=== PATIENT | male | born 1955 | race Caucasian/White ===

== ENCOUNTER 2020-12-05 15:42 | Emergency (ER) | payer MEDICARE, SELFPAY ==
--- NOTE | 2020-12-05 16:18 | PC.NURSE ---
patient not in waiting room when called to triage
--- NOTE | 2020-12-05 17:16 | PC.NURSE ---
1st call to ed dept no response in wr at [id number]
== END 2020-12-05 19:23 | disposition left against medical advice (07) ==
PROVIDERS: Emergency Provider Emergency Medicine
DX: Z04.1 Encounter for examination and observation following transport accident (principal)
CPT/HCPCS: 99281

== ENCOUNTER 2020-12-05 22:07 | Emergency (ER) | payer MEDICARE, SELFPAY | END 2020-12-06 00:23 | disposition left against medical advice (07) | PROVIDERS: Emergency Provider Emergency Medicine | DX: Z04.1 Encounter for examination and observation following transport accident (principal) ==

== ENCOUNTER 2021-03-13 10:46 | Emergency (ER) | payer MEDICARE, SELFPAY | END 2021-03-13 12:53 | disposition left against medical advice (07) | LOC: HO.ED 12:28 | PROVIDERS: Emergency Provider Emergency Medicine | DX: R06.02 Shortness of breath (principal) ==

== ENCOUNTER 2021-04-16 07:55 | Outpatient (REF) | payer OTHER, SELFPAY | END 2021-04-16 07:56 | disposition home or self-care (01) | LOC: HO.LAB 07:55 | PROVIDERS: Visit Provider Internal Medicine | DX: Z20.822 Contact with and (suspected) exposure to COVID-19 (principal) | CPT/HCPCS: C9803; U0003; U0005 ==

== ENCOUNTER 2021-10-03 08:59 | Emergency (ER) | payer OTHER, SELFPAY ==
--- NOTE | ~2021-10-03 | CT_ITS ---
EXAMINATION: CT ABDOMEN AND PELVIS WITHOUT CONTRAST CLINICAL INFORMATION: Left groin pain. Rule out incarcerated inguinal hernia. COMPARISON: CT abdomen/pelvis dated from 08/15/2018. TECHNIQUE: Multidetector volumetric imaging was performed from the superior aspect of the liver through the pubic symphysis. Sagittal and coronal reformatted images were obtained on the technologist's workstation. This CT examination was performed using dose optimization techniques as appropriate, variously including the following: *Automated exposure control *Adjustment of mA and/or kV according to patient size (this includes techniques or standardized protocols for targeted exams where dose is matched to indication/reason for exam; i.e. extremities or head) *Use of iterative reconstruction technique DLP: 363 mGy-cm FINDINGS: LUNG BASES: There is increased peripheral reticulation and subpleural lucencies when compared to the study from 2018. There is redemonstration of linear atelectasis or parenchymal scarring in the left lower lobe. No focal consolidation or pleural effusion. LIVER, GALLBLADDER, AND BILIARY TREE: The noncontrast liver is normal in size, shape and attenuation. Redemonstration of a small calcified granuloma in the right lobe of the liver. There are no definite new focal liver abnormalities. Cholelithiasis without abnormal wall thickening or inflammatory changes to suspect acute cholecystitis. There is no biliary ductal dilatation. PANCREAS: No focal abnormalities. The main pancreatic duct is nondilated. There is no peripancreatic free fluid or fat stranding. SPLEEN: Unremarkable. ADRENAL GLANDS: Unremarkable. KIDNEYS AND URETERS: There is a 5 mm nonobstructive calculus in the upper pole of the right kidney at 7 cm from the posterior axillary line (image 54 of series 5). There is a 3 mm nonobstructive renal calculus in the upper pole of left kidney at 7.2 cm from the posterior axillary line (image 55 of series 5). There is a 2.5 cm cyst in the upper to mid pole of left kidney. No hydronephrosis. No perinephric fat stranding. BLADDER: Partially under distended which limits assessment of wall thickening. No significant perivesical fat stranding. GASTROINTESTINAL TRACT: The stomach and the small bowel are nondilated. There are a few prominent and fluid-filled loops of small bowel in the upper abdomen (coronal image 36 of series 5) which could potentially represent gastroenteritis in the appropriate clinical setting. There is no evidence of bowel obstruction. There is a normal appendix. The distal colon is underdistended limiting assessment of wall thickening and in the sigmoid colon very mild acute diverticulitis cannot be excluded. There is no significant pericolic fat stranding. ABDOMINAL WALL: Midline surgical scar. There is a left inguinal hernia containing simple attenuating fluid and measuring up to 3.3 cm. There is very minimal surrounding fat stranding. There is no bowel within the hernia. LYMPH NODES: Assessment is limited in the absence of intravenous contrast. Accounting for these limitations, no definite lymphadenopathy by size criteria is identified. VASCULAR: Atherosclerotic disease. No aneurysm of the abdominal aorta. PELVIC VISCERA: Prostatomegaly. OSSEOUS STRUCTURES: Redemonstration of an interdisc spacer at L5-S1. Prominent Schmorl's nodule at L3. Multilevel thoracal lumbar spondylosis. No acute or aggressive osseous findings. CT/CT abdomen pelvis wo con IMPRESSION: Chest: Increase peripheral reticulation and subpleural lucencies since 2018 raising the possibility of underlying chronic interstitial disease with possible superimposed infection or inflammation. Recommend further evaluation with a nonemergent high-resolution chest CT. Abdomen/pelvis: 1. Fluid containing left inguinal hernia with very mild surrounding fat stranding. Correlate clinically for infection. This hernia does not contain loops of bowel. There is no evidence of bowel obstruction. 2. Possible very mild sigmoid diverticulitis. 3. Indeterminate fluid distended loops of small bowel which could be related with gastroenteritis in the appropriate clinical setting. 4. Cholelithiasis but no evidence of acute cholecystitis. 5. Nonobstructive bilateral renal calculi.
[2021-10-03 09:29] VITALS: BP 131/76; PULSE 62; RESP 16; TEMP 36.9; O2SAT 100; BMI 23.4
--- NOTE | 2021-10-03 10:39 | ED.GENADULT ---
HPI - General Adult General Chief complaint: General Medical Stated complaint: hernia Time Seen by Provider: 10/03/21 10:36 Source: patient Mode of arrival: ambulatory Limitations: no limitations History of Present Illness HPI narrative: 66-year-old male came in for evaluation of possible a hernia incarceration. Patient is known to have left inguinal hernia, hernia for 1 week is been getting worse and painful, normal bowel movement this morning, patient been having loose stool early recently, no loss of weight, no fever, no chills, no nausea, no vomiting. Related Data Allergies Allergy/AdvReac Type Severity Reaction Status Date / Time No Known Allergies Allergy Unverified 08/16/20 18:52 [No Known Allergies*] Review of Systems Review of Systems: All other systems are reviewed and are negative Constitutional: Reports as per HPI and Reports no additional constitutional complaints Eyes: Reports as per HPI and Reports no additional eye complaints Reports system reviewed and no additional complaints, except as documented Cardiovascular: Reports as per HPI and Reports no additional cardiovascular complaints Respiratory: Reports as per HPI and Reports no additional respiratory complaints Gastrointestinal: Reports as per HPI and Reports no additional gastrointestinal complaints Genitourinary: Reports no additional female genitourinary complaints Musculoskeletal: Reports no additional musculoskeletal complaints Skin/Breast: Reports system reviewed and no additional complaints, except as docu Psychiatric: Reports no additional psychiatric complaints Endocrine: Reports no additional endocrine complaints Hematologic/Lymphatic: Reports no additional hematologic/lymphatic complaints Allergic/Immunologic: Reports no additional allergic/immunologic complaints Reports system reviewed and no additional complaints, except as documented and Reports Abnormal speech present [facility] Past Medical History Medical History No known health problems Social History Social History Advance Directives: No Advance Directives Information Provided: Yes Physical Exam Vital Signs: Vital Signs: Last Vital Signs Temp 98.4 F 10/03/21 09:29 Pulse 62 10/03/21 09:29 Resp 16 10/03/21 09:29 BP 131/76 10/03/21 09:29 Pulse Ox 100 10/03/21 09:29 Body Mass Index 23.4 Vital signs have been reviewed as appeared to be correct. Blood pressure normal. Heart rate normal. Respiration rate normal. Temperature normal. Oxygen saturation normal. Appearance: Alert. Oriented X3. No acute distress. Head: Normal external exam. Normocephalic. Atraumatic. No [place] signs noted. No raccoon eyes noted Eyes: PERRLA. EOMI. Conjunctiva and sclera normal. Eyelids normal. ENT: TM's Normal. Pharynx normal. Uvula midline. Moist mucous membranes. No trismus noted. No drooling noted. No muffled voice noted. Neck: Normal inspection. Neck supple. FROM. No adenopathy. Thyroid Normal. No meningeal signs. No neck mass noted. CVS: Normal heart rate and rhythm. Heart sound normal. No murmurs noted. Pulses normal throughout. Respiratory: No respiratory distress. Painless inspiration. Breath sounds normal. No wheezes/rales/rhonchi noted. Chest nontender. No accessory muscle usage noted or decreased air movement noted. Abdomen: Soft, mild tenderness over left groin hernia, skin over it no redness, or hotness, or tenderness. sounds normal in all 4 quadrants. No distention noted. No organomegaly noted. No visible injury noted. Back: No CVA tenderness. Full range of motion noted. Skin: Skin warm and dry. Normal skin color. Normal skin turgor. No rashes/lesions/lacerations noted. Extremities: No lower extremity edema. Extremities exhibit normal range of motion. Extremities nontender. Neuro: Oriented X 3. Cranial nerve exam: II-XII are grossly intact No motor deficit. No sensory deficit. Reflexes normal. Course Course Course Narrative: Assessment and plan. 66-year-old male with left to inguinal hernia, patient has a normal white count, CT is questioning mild inflammatory change around the hernia, case discussed with Dr. Issa who is supposed to come down and evaluate the patient, patient does not want to wait for the surgeon he would like to leave against medical advise understanding the risk of strangulation of the hernia and causing life-threatening complication. Medical Decision Making Medical Records Medical records reviewed: Yes I reviewed the patient's medical records. Lab Data Lab results reviewed: Yes I reviewed the patient's lab results. Result diagrams: 10/03/21 10:56 10/03/21 10:56 Labs: Lab Results 10/03/21 10/03/21 10/03/21 Range/Units 10:56 10:56 10:56 WBC 7.6 (4.8-10.8) X10*3/uL RBC 5.29 (4.60-5.80) X10*6/uL Hgb 16.0 (14.0-18.0) g/dl Hct 47.8 (42.0-52.0) % MCV 90.4 (80.0-98.0) fL MCH 30.2 (27.0-33.0) pg MCHC 33.5 (31.0-36.0) g/dl RDW 13.7 (11.0-16.0) % Plt Count 224 (160-400) X10*3/uL MPV 10.9 (9.4-12.4) fL Immature Gran % (Auto) 0.3 (0.0-0.4) % Neut % (Auto) 66.3 (45-73) % Lymph % (Auto) 26.4 (20-40) % [place] % (Auto) 5.0 (2-11) % Eos % (Auto) 1.7 (0-4) % Baso % (Auto) 0.3 (0-2) % Lymph # (Auto) 2.0 (1.2-4.9) X10*3/uL [place] # (Auto) 0.4 (0.1-1.2) X10*3/uL Eos # (Auto) 0.1 (0.0-0.4) X10*3/uL Baso # (Auto) 0.0 (0.0-0.2) X10*3/uL Abs Immat Gran (auto) 0.02 (0.00-0.03) X10*3/uL Absolute Neuts (auto) 5.07 (2.0-8.3) x10*3/uL Absolute Nucleated RBC 0.000 (0.0-0.012) X10*3/uL Nucleated RBC % (auto) 0.0 (0.0-0.2) /100WBC Sodium 143 (135-145) mmol/L Potassium 4.6 (3.3-5.1) mmol/L Chloride 106 (96-108) mmol/L Carbon Dioxide 27 (22-29) mmol/L Anion Gap 15 (12-20) BUN 15 (9-16) mg/dL Creatinine 1.07 (0.5-1.4) mg/dL Estim Creat Clear Calc 57.4 Estimated GFR > 60 Random Glucose 98 (60-115) mg/dL Calcium 9.9 (8.4-10.2) mg/dL Total Bilirubin 0.6 (0.0-1.0) mg/dL Direct Bilirubin 0.2 (0.0-0.5) mg/dL AST 30 (5-37) U/L ALT 35 (0-40) U/L Alkaline Phosphatase 87 (39-117) U/L Total Protein 8.2 H (6.5-8.0) g/dL Albumin 5.0 (3.5-5.0) g/dL Lipase 160 H (8-78) U/L Urine Color Urine Appearance Urine pH (5.0-8.0) Ur Specific [place] (1.005-1.025) Urine Protein (NEG-TRACE) MG/DL Urine Glucose (UA) (NEG) MG/DL Urine Ketones (NEG) MG/DL Urine Blood (NEG) Urine Nitrite (NEG) Ur Leukocyte Esterase (NEG) Urine RBC (0) /HPF Urine WBC (0-4) /HPF Ur Squamous Epith Cells /LPF Urine Bacteria /LPF COVID-19 (KEISHA) Negative (Negative) COVID-19 Clin Com See Note 10/03/21 Range/Units 11:10 WBC (4.8-10.8) X10*3/uL RBC (4.60-5.80) X10*6/uL Hgb (14.0-18.0) g/dl Hct (42.0-52.0) % MCV (80.0-98.0) fL MCH (27.0-33.0) pg MCHC (31.0-36.0) g/dl RDW (11.0-16.0) % Plt Count (160-400) X10*3/uL MPV (9.4-12.4) fL Immature Gran % (Auto) (0.0-0.4) % Neut % (Auto) (45-73) % Lymph % (Auto) (20-40) % [place] % (Auto) (2-11) % Eos % (Auto) (0-4) % Baso % (Auto) (0-2) % Lymph # (Auto) (1.2-4.9) X10*3/uL [place] # (Auto) (0.1-1.2) X10*3/uL Eos # (Auto) (0.0-0.4) X10*3/uL Baso # (Auto) (0.0-0.2) X10*3/uL Abs Immat Gran (auto) (0.00-0.03) X10*3/uL Absolute Neuts (auto) (2.0-8.3) x10*3/uL Absolute Nucleated RBC (0.0-0.012) X10*3/uL Nucleated RBC % (auto) (0.0-0.2) /100WBC Sodium (135-145) mmol/L Potassium (3.3-5.1) mmol/L Chloride (96-108) mmol/L Carbon Dioxide (22-29) mmol/L Anion Gap (12-20) BUN (9-16) mg/dL Creatinine (0.5-1.4) mg/dL Estim Creat Clear Calc Estimated GFR Random Glucose (60-115) mg/dL Calcium (8.4-10.2) mg/dL Total Bilirubin (0.0-1.0) mg/dL Direct Bilirubin (0.0-0.5) mg/dL AST (5-37) U/L ALT (0-40) U/L Alkaline Phosphatase (39-117) U/L Total Protein (6.5-8.0) g/dL Albumin (3.5-5.0) g/dL Lipase (8-78) U/L Urine Color YELLOW Urine Appearance CLEAR Urine pH 6.0 (5.0-8.0) Ur Specific [place] 1.020 (1.005-1.025) Urine Protein NEG (NEG-TRACE) MG/DL Urine Glucose (UA) NEG (NEG) MG/DL Urine Ketones NEG (NEG) MG/DL Urine Blood TRACE (NEG) Urine Nitrite NEG (NEG) Ur Leukocyte Esterase NEG (NEG) Urine RBC 1-4 (0) /HPF Urine WBC 0 (0-4) /HPF Ur Squamous Epith Cells NONE /LPF Urine Bacteria NONE /LPF COVID-19 (KEISHA) (Negative) COVID-19 Clin Com Imaging Data CT scan - abdomen: Radiologist's impression: 1.? Fluid containing left inguinal hernia with very mild surrounding fat stranding. Correlate clinically for infection. This hernia does not contain loops of bowel. There is no evidence of bowel obstruction. 2.? Possible very mild sigmoid diverticulitis. 3.? Indeterminate fluid distended loops of small bowel which could be related with gastroenteritis in the appropriate clinical setting. 4.? Cholelithiasis but no evidence of acute cholecystitis. 5.? Nonobstructive bilateral renal calculi. Discharge Plan Discharge Clinical Impression: Inguinal hernia Qualifiers: Obstruction and gangrene presence: without obstruction or gangrene Laterality: unilateral Recurrence: not specified as recurrent Qualified Code(s): K40.90 - Unilateral inguinal hernia, without obstruction or gangrene, not specified as recurrent Patient Disposition: Left Against Medical Advice Instructions: Inguinal Hernia (ED) Referrals: Emil Issa MD [Physician] - 2 days
[2021-10-03 11:14] LABS: MANUAL DIFF FLAG NO
[2021-10-03] MEDS: 0.9 % Sodium Chloride 1,000 ML 999 ML IVCONT (11:14)
[2021-10-03 11:18] LABS: Basophils Percent Auto 0.3 % (0-2); Eosinophils Absolute Auto 0.1 X10*3/uL (0.0-0.4); Eosinophils Percent Auto 1.7 % (0-4); Hematocrit 47.8 % (42.0-52.0); Imm Gran Abs Auto 0.02 X10*3/uL (0.00-0.03); Imm Gran Pct Auto 0.3 % (0.0-0.4); Lymphocytes Percent Auto 26.4 % (20-40); Mean Corpuscular HGB Conc 33.5 g/dl (31.0-36.0); Mean Corpuscular Hemoglobin 30.2 pg (27.0-33.0); Mean Corpuscular Volume 90.4 fL (80.0-98.0); Mean Platelet Volume 10.9 fL (9.4-12.4); Monocytes Absolute Auto 0.4 X10*3/uL (0.1-1.2); Neutrophils Absolute Auto 5.07 x10*3/uL (2.0-8.3); Neutrophils Percent Auto 66.3 % (45-73); Platelet Count 224 X10*3/uL (160-400); Red Blood Count 5.29 X10*6/uL (4.60-5.80); Red Cell Distribution Width 13.7 % (11.0-16.0); White Blood Count 7.6 X10*3/uL (4.8-10.8)
[2021-10-03 11:34] LABS: COVID-19 Test Negative (Negative)
[2021-10-03 11:35] LABS: Alanine Aminotransferase 35 U/L (0-40); Alkaline Phosphatase 87 U/L (39-117); Anion Gap 15 (12-20); Aspartate Amino Transferase 30 U/L (5-37); Bilirubin Direct 0.2 mg/dL (0.0-0.5); Bilirubin Total 0.6 mg/dL (0.0-1.0); Blood Urea Nitrogen 15 mg/dL (9-16); Calcium 9.9 mg/dL (8.4-10.2); Carbon Dioxide 27 mmol/L (22-29); Chloride 106 mmol/L (96-108); Creatinine Clr Calc Pharmacy 57.4; Estimated Glomerular Filt Rate > 60; Glucose Random 98 mg/dL (60-115); Lipase 160 U/L (8-78); Potassium 4.6 mmol/L (3.3-5.1); Sodium 143 mmol/L (135-145); Total Protein 8.2 g/dL (6.5-8.0)
[2021-10-03 11:37] LABS: Appearance Urine CLEAR; Color Urine YELLOW; Glucose Urine UA NEG (NEG); Leukocyte Esterase Urine NEG (NEG); Nitrite Urine NEG (NEG); UACC Culture Trigger NO; Urine Blood TRACE (NEG); Urine Ketones NEG (NEG); Urine Protein NEG (NEG-TRACE)
[2021-10-03 12:18] LABS: WBC Urine 0 /HPF (0-4)
--- NOTE | 2021-10-03 14:41 | PC.NURSE ---
pt not found at bedside when this rn attempted to give pt his d/c papers
== END 2021-10-03 14:44 | disposition left against medical advice (07) ==
PROVIDERS: Emergency Provider Emergency Medicine
DX: K40.90 Unilateral inguinal hernia, without obstruction or gangrene, not specified as recurrent (principal); Z20.822 Contact with and (suspected) exposure to COVID-19
CPT/HCPCS: 36415; 74176; 80048; 80076; 81001; 83690; 85025; 87635; 96360; 99284

== ENCOUNTER → 2021-10-23 12:57 | Outpatient (BNVA) | payer OTHER, SELFPAY | PROVIDERS: Visit Provider Surgery | DX: K40.90 Unilateral inguinal hernia, without obstruction or gangrene, not specified as recurrent (principal) | CPT/HCPCS: 99202 ==

== ENCOUNTER → 2021-11-05 10:14 | Day surgery (SDC) | payer OTHER, SELFPAY ==
--- NOTE | 2021-11-04 12:08 | HO.ANESPROP2 ---
HPI - Anesthesia Eval Consult details Narrative: 66yo M for Left Hernia Repair Inguinal with Mesh PMFSH Active Problems Active Problems: All Active Problems (Updated 10/23/21 @ 13:40 by Emil Issa MD) Left inguinal hernia (Acute) Past Medical History Medical History (Updated 10/23/21 @ 13:40 by Emil Issa MD) Left inguinal hernia No known health problems Surgical History Surgical History (Updated 10/23/21 @ 13:22 by Carolina Peralta [place]) History of shoulder surgery History of spinal surgery Meds Allergies Allergy/AdvReac Type Severity Reaction Status Date / Time No Known Allergies Allergy Verified 10/23/21 13:21 [No Known Allergies*] Home Medications Medication Instructions Recorded Confirmed Last Taken Type No Known Home Meds 10/23/21 10/23/21 Unknown History Exam Exam Date and Time: November 04, 2021 1208 Pertinent Lab Results Pertinent Lab Results: Laboratory Tests 10/03/21 10/03/21 10:56 10:56 WBC 7.6 Hgb 16.0 Hct 47.8 Plt Count 224 Sodium 143 Potassium 4.6 Chloride 106 Carbon Dioxide 27 BUN 15 Creatinine 1.07 Assessment and Plan Assessment Anesthesia Assessment: Chart Reviewed
[2021-11-05 10:30] VITALS: BMI 23.3
[2021-11-05 10:42] VITALS: BP 135/91; PULSE 58; RESP 16; TEMP 36.1; O2SAT 100
[2021-11-05] MEDS: Lactated Ringers 1,000 ML 100 ML IVCONT (10:50)
== END ==
PROVIDERS: Visit Provider Surgery
DX: K40.90 Unilateral inguinal hernia, without obstruction or gangrene, not specified as recurrent (principal); Z53.29 Procedure and treatment not carried out because of patient's decision for other reasons
CPT/HCPCS: J0690

== ENCOUNTER 2021-11-11 11:41 | Outpatient (REF) | payer OTHER, SELFPAY ==
--- NOTE | ~2021-11-11 | XR_ITS ---
EXAMINATION: XR HAND, RIGHT CLINICAL INFORMATION: Pain COMPARISON: None TECHNIQUE: PA, lateral, and oblique views of the right hand. FINDINGS: Normal bone mineralization. Postsurgical changes with metallic anchor projected over the distal scaphoid. Small metallic density projected over the fifth metacarpal head, could reflect sequela of surgery or represent a metallic foreign body. Moderate first CMC arthritis. There are arthritic changes otherwise present, including severe third CMC arthritis. Radiocarpal arthritis, arthritic changes in some of the interphalangeal joints. Limited evaluation of the scaphoid, distal carpal bones, especially the capitate, with overlapping osseous structures. XR/XR hand RT min 3V IMPRESSION: -Postsurgical changes with metallic anchor in the distal scaphoid. -Metallic density projected over the fifth metacarpal head, from postsurgical changes versus metallic foreign body. -Arthritis present. This includes moderate first CMC arthritis, severe third CMC arthritis, as described above. -Limited evaluation the carpal bones. Dedicated wrist radiograph can be obtained for further evaluation as clinically warranted.
== END 2021-11-11 11:42 | disposition home or self-care (01) ==
LOC: HO.XRAY 11:41
PROVIDERS: PCP Internal Medicine; Visit Provider Nurse Practitioner
DX: M79.641 Pain in right hand (principal)
CPT/HCPCS: 73130

== ENCOUNTER 2021-12-04 | Outpatient (REF) | payer OTHER, SELFPAY ==
--- NOTE | ~2021-12-04 | XR_ITS ---
EXAMINATION: RIGHT WRIST X-RAY CLINICAL INFORMATION: Pain. COMPARISON: Previous x-ray October 2021. TECHNIQUE: 4 views of the right wrist. FINDINGS: There is a surgical anchor that projects over the scaphoid bone. There is question of old trauma to the scaphoid bone. There is question of abnormal carpal alignment with dorsal tilt of the lunate and proximal migration of the capitate/distal carpal row. Mild arthritis at the 1st SKILLED NURSING joint, trapezoid trapezium scaphoid joints and radiocarpal joint. There may also be arthritis at the 2nd and 3rd MCP joints and cystic changes of the metacarpal heads. There is a radiopaque density that projects over the base of the 4th metacarpal bone and 5th metacarpal head suggestive soft tissue foreign body. These appear unchanged. Soft tissues are otherwise unremarkable. XR/XR wrist RT w scaphoid IMPRESSION: Question old trauma to the scaphoid bone. Arthritis and collapse of the carpal rows. No change from previous exam October 2021.
== END 2021-12-04 00:01 | disposition home or self-care (01) ==
LOC: HO.XRAY
PROVIDERS: Visit Provider Orthopaedic Surgery
DX: M25.531 Pain in right wrist (principal)
CPT/HCPCS: 73110

== ENCOUNTER → 2021-12-04 11:04 | Outpatient (BNVA) | payer OTHER, SELFPAY | PROVIDERS: Visit Provider Orthopaedic Surgery | DX: M48.1 Ankylosing hyperostosis [Forestier] (principal) | CPT/HCPCS: 73110; 99202; J1020 ==

== ENCOUNTER 2021-12-19 08:11 | Emergency (ER) | payer OTHER, SELFPAY ==
--- NOTE | ~2021-12-19 | XR_ITS ---
Indication: Fall, pain EXAMINATION: Right shoulder, lumbar sacral spine 3 views the right shoulder compared to previous dated 04/23/2017. Status post surgical change. There is no evidence for an acute fracture or dislocation. 3 views of the lumbar sacral spine demonstrate surgical change at L5-S1. There is no listhesis or compression injury. Mild scoliosis convex right. Mild to moderate degenerative changes. No acute finding. No fracture line is seen. XR/XR shoulder RT min 2V IMPRESSION: No acute finding in the lumbar sacral spine or right shoulder.
--- NOTE | ~2021-12-19 | XR_ITS ---
Indication: Fall, pain EXAMINATION: Right shoulder, lumbar sacral spine 3 views the right shoulder compared to previous dated 04/23/2017. Status post surgical change. There is no evidence for an acute fracture or dislocation. 3 views of the lumbar sacral spine demonstrate surgical change at L5-S1. There is no listhesis or compression injury. Mild scoliosis convex right. Mild to moderate degenerative changes. No acute finding. No fracture line is seen. XR/XR lumbar spine 2-3V IMPRESSION: No acute finding in the lumbar sacral spine or right shoulder.
[2021-12-19 08:41] VITALS: BP 155/95; PULSE 75; RESP 19; TEMP 36.6; O2SAT 99; BMI 23.3
--- NOTE | 2021-12-19 09:14 | ED_ITS ---
HPI - General Adult General Chief complaint: Fall Stated complaint: Fall/ hip and leg pain Time Seen by Provider: 12/19/21 09:14 Source: patient Limitations: no limitations History of Present Illness HPI narrative: Patient presents to the ER complaining of right shoulder and lower back pain and leg pain. After recent fall approximately 1 week prior and assess for a slipped on the stairs. Pain in the right shoulder increases with range of motion. Pain lower back increases with ambulation and walking. Patient states at 1st he felt fine but pain is increased over the past week. Patient having difficulty sleeping at night secondary to pain. Pain is 7/10. Pain is aching in nature. Patient has longstanding history of hypercholesterolemia depression and anxiety. Related Data Previous Rx's Medication Instructions Recorded tramadol 50 mg tablet 50 mg PO BID PRN #14 tab 12/19/21 Allergies Allergy/AdvReac Type Severity Reaction Status Date / Time No Known Allergies Allergy Verified 12/04/21 11:33 [No Known Allergies*] Review of Systems Constitutional: Constitutional: Denies body ache(s), Denies chills, Denies fever(s) and Denies headache(s) Eyes: Eyes: Denies change in vision ENT: Denies headache(s) Cardiovascular: Cardiovascular: Denies chest pain, Denies Epigastric Pain, De nies syncope and Denies dyspnea Respiratory: Respiratory: Denies cough and Denies dyspnea Gastrointestinal: Gastrointestinal: Denies abdominal pain, Denies diarrhea and Denies nausea Musculoskeletal: Musculoskeletal: Reports back pain Comments: Right-sided shoulder pain right leg pain Neurologic: Denies syncope, Denies headache(s) and Denies convulsions Psychiatric: Psychiatric: Reports anxiety Hematologic/Lymphatic: Hematologic/Lymphatic: Reports no additional hematologic/lymphatic complaints Allergic/Immunologic: Allergic/Immunologic: Reports no additional allergic/immunologic complaints [facility] Past Medical History Attestation statement: The following information was validated with the patient. Medical History Anxiety Depression Left inguinal hernia No known health problems Surgical History History of shoulder surgery History of spinal surgery Social History Social History Patient Tobacco Use Status: Current everyday Tobacco user Tobacco use type: Cigarette Advance Directives: No Advance Directives Information Provided: No Physical Exam Vital Signs: Vital Signs: Last Vital Signs Temp 98 F 12/19/21 08:41 Pulse 75 12/19/21 08:41 Resp 19 12/19/21 08:41 BP 155/95 H 12/19/21 08:41 Pulse Ox 99 12/19/21 08:41 BMI result Body Mass Index 23.3 vital signs have been reviewed as normal and appeared to be correct. Blood pressure normal. Heart rate normal. Respiration rate normal. Temperature normal. Oxygen saturation normal. Appearance: Alert. Oriented X3. No acute distress. Head: Normal external exam. Normocephalic. Atraumatic. No [place] signs noted. No raccoon eyes noted Eyes: PERRLA. EOMI. Conjunctiva and sclera normal. Eyelids normal. ENT: Pharynx normal. Uvula midline. Moist mucous membranes. Neck: Soft full range of motion, no JVD CVS: Heart regular rate and rhythm no murmurs and rubs Respiratory: Breath sounds are clear to auscultation bilaterally. No accessory muscle use noted. Abdomen: Soft nontender no rebound or guarding positive bowel sounds Back: positive paraspinal muscle tenderness of the lumbar spine right greater than left no midline tenderness Skin: Skin warm and dry. Normal skin color. Normal skin turgor. No rashes/lesions/lacerations noted. Extremities: pelvis is stable right lateral hip is nontender full range of motion of lower extremities. Positive right shoulder tenderness lateral aspect the anterior aspect no obvious deformity student accounts coordinator is equal bilaterally. Neuro: Oriented X 3. No motor deficit. No sensory deficit. Reflexes normal. No focal deficit patient is ambulatory without ataxia Course Course Course Narrative: Right shoulder contusion Lumbar contusion Right shoulder fracture AC separation Lumbar compression fracture x-rays pending of LS spine and right shoulder x-rays are negative of the lumbar spine and right shoulder patient's injury occurred on the 12th of this month mass pat reviewed no prescriptions found Medical Decision Making Imaging Data lumbar spine: Radiologist's impression: [address] [address] XRay Report Signed Patient: Celestino Sweeney MR#: [id number] : 1955 Acct:[id number] Age/Sex: 66 / M ADM Date: 12/19/21 Loc: HO.ED Attending Dr: Ordering Physician: Earl Bustillo MD Date of Service: 12/19/21 Procedure(s): XR lumbar spine 2-3V Accession Number(s): [id number] cc: Earl Bustillo MD~ Indication: Fall, pain EXAMINATION: Right shoulder, lumbar sacral spine 3 views the right shoulder compared to previous dated 04/23/2017. Status post surgical change. There is no evidence for an acute fracture or dislocation. 3 views of the lumbar sacral spine demonstrate surgical change at L5-S1. There is no listhesis or compression injury. Mild scoliosis convex right. Mild to moderate degenerative changes. No acute finding. No fracture line is seen. XR/XR lumbar spine 2-3V IMPRESSION: No acute finding in the lumbar sacral spine or right shoulder. Dictated By: SARAI MOORE MD Signed By: <Electronically signed by SARAI MOORE MD in OV> 12/19/21917 DD/ 7 TD/TT:? Warp Splitter: GT Discharge Plan Discharge Clinical Impression: Right shoulder strain Qualifiers: Encounter type: initial encounter Qualified Code(s): S46.911A - Strain of unspecified muscle, fascia and tendon at shoulder and upper arm level, right arm, initial encounter Contusion Qualifiers: Encounter type: initial encounter Contusion area: lower back Qualified Code(s): S30.0XXA - Contusion of lower back and pelvis, initial encounter Patient Disposition: Home, Self-Care Instructions: Contusion in Adults (ED) Additional Instructions: x-rays are negative rest ice elevation medication as directed Prescriptions: New tramadol 50 mg tablet 50 mg PO BID PRN (Reason: severe pain (scale score 7-10)) Qty: 14 RF: 0
== END 2021-12-19 09:38 | disposition home or self-care (01) ==
PROVIDERS: Emergency Provider Emergency Medicine Emergency Medical Services
DX: S46.911A Strain of unspecified muscle, fascia and tendon at shoulder and upper arm level, right arm, initial encounter (principal); S30.0XXA Contusion of lower back and pelvis, initial encounter; W10.8XXA Fall (on) (from) other stairs and steps, initial encounter; Y93.9 Activity, unspecified; Y92.039 Unspecified place in apartment as the place of occurrence of the external cause; Y99.9 Unspecified external cause status
CPT/HCPCS: 72100; 73030; 99283

== ENCOUNTER → 2021-12-30 12:59 | Outpatient (BNVA) | payer OTHER, SELFPAY | PROVIDERS: Visit Provider Orthopaedic Surgery ==

== ENCOUNTER 2022-01-09 09:53 | Outpatient (REF) | payer OTHER, SELFPAY ==
--- NOTE | ~2022-01-09 | MR_ITS ---
EXAMINATION: MR LUMBAR SPINE WITHOUT AND WITH CONTRAST CLINICAL INFORMATION: 66-year-old with complaints of low back and right leg pain. History of disc surgery in 2017. Lumbar radiculopathy. COMPARISON: 11/09/2015 MRI. TECHNIQUE: MRI of the lumbar spine was obtained using routine sequences with and without contrast. Intravenous contrast: Gadavist 6.5 mL FINDINGS: Coronal Alignment: Trace upper lumbar dextrocurvature on current study, which is nonspecific and may be positional or related to muscle spasm. Sagittal Alignment: The lumbosacral spine is anatomically aligned in the sagittal plane, stable in appearance. Lumbosacral Junction: Normal. Vertebral Bodies: Normal height. Disc Spaces and Endplates: Status post interbody fusion at L5-S1 with metallic hardware artifact since previous exam. Moderate to severe disc space height loss asymmetric to the right at L4-L5, which has developed since previous exam, with Schmorl's nodes, disc desiccation and mild spondylosis. Mild disc desiccation and mild disc space height loss asymmetric to the left at L3-L4, stable in appearance. A tiny Schmorl's node along the inferior endplate of L3 is new. Moderate to severe disc space height loss asymmetric to the left at L2-L3 has developed since previous exam, with a prominent Schmorl's node along the superior endplate of L3 and intradiscal degenerative signal changes with moderate spondylosis progressed from previous exam. Disc space height and signal are well maintained at L1-L2 with anterior marginal spondylosis, slightly progressed. Minor anterior marginal spondylosis at T12-L1 is stable. Spinal Canal: No abnormal developmental findings. Bone Marrow: Type I degenerative marrow signal changes are seen along the endplates at L4-L5, which has developed since the previous exam consistent with the development of extensive degenerative disc disease at this level. There has been development of type I degenerative endplate change at L2-L3 as well consistent with development of significant degenerative disc disease at this level. No other significant foci of bone marrow edema are seen and there is no suspicious marrow replacing process. There is bone marrow enhancement along the endplates at L4-L5 and L2-L3 consistent with type I marrow signal change at these levels. There may be some enhancement along the endplates at L5-S1, which could be secondary to reactive changes from previous surgery. No suspicion for infection. Conus Medullaris: Terminates at L1. Morphology and signal is normal. No abnormal enhancement. Intradural Nerve Roots: Within normal limits. No abnormal intradural enhancement. L5-S1: Status post ALIF procedure at this level, with metallic hardware artifact. No significant facet arthrosis, canal or neuroforaminal stenosis and no abnormal enhancement. L4-L5: Diffuse disc bulging progressed from previous study with mild flattening of the ventral dural sac, with disc bulging encroaching on the neural foramina bilaterally, right more than left. Mild right-sided facet arthropathy has developed since the previous exam. There is mild right-sided foraminal narrowing without neural impingement. No significant spinal canal stenosis. Ligamentum flavum thickening has slightly progressed at this level. L3-L4: Diffuse disc bulging is again noted, now with a very small right subarticular disc protrusion since previous exam without neural impingement. [id number] bilateral facet arthropathy is stable with no significant canal or neuroforaminal stenosis. L2-L3: Progression of disc bulging at this level since the previous exam, with a shallow broad-based left subarticular disc protrusion with mild flattening of the dural sac asymmetric to the left, progressed from previous study with minimal narrowing of the left subarticular zone on current study without neural impingement. Minor facet arthrosis bilaterally is stable. There is slight left-sided neural foraminal narrowing without neural impingement on the current study. No significant central spinal canal stenosis. L1-L2: Normal disc contour. No significant facet arthrosis, canal or neuroforaminal stenosis. T12-L1: Tiny central disc protrusion, stable in appearance. No facet arthrosis, canal or neuroforaminal stenosis. Paraspinal/Retroperitoneal: The paravertebral soft tissues are unremarkable. MR/MR lumbar spine wo/w con IMPRESSION: 1. Status post ALIF procedure at L5-S1 since the previous exam with no significant canal or neuroforaminal stenosis. Some endplate marrow enhancement is noted, which is nonspecific but is likely reactive, secondary to previous surgery. No obvious signs of infection. 2. Progression of discogenic degenerative changes at L2-L3 and L4-L5 since the previous exam with stable disc degenerative change at L3-L4 with multilevel disc bulging again noted, progressed at L4-L5 and L2-L3, now with a very small right subarticular disc protrusion at L3-L4 without neural impingement and shallow broad-based left subarticular disc protrusion at L2-L3 without neural impingement since previous study. 3. Stable multilevel bilateral facet arthropathy with no significant central spinal canal stenosis. Mild right-sided foraminal narrowing is noted at L4-L5 without neural impingement and minimal left-sided foraminal narrowing at L2-L3 without neural impingement since previous exam.
== END 2022-01-09 09:54 | disposition home or self-care (01) ==
LOC: HO.MRI 09:53
PROVIDERS: Visit Provider Internal Medicine
DX: M54.16 Radiculopathy, lumbar region (principal)
CPT/HCPCS: 72158; A9585

== ENCOUNTER 2022-01-10 06:00 | Day surgery (SDC) | payer OTHER, SELFPAY ==
--- NOTE | 2022-01-09 09:51 | P.CONAN_ITS ---
Documented by User: Koki Patton NP 01/09/22 10:04 HPI - Anesthesia Eval Consult details Narrative: 66yo M for Left Hernia Repair Inguinal with Mesh Reschedule from 10/2021 because [facility] Active Problems Active Problems: All Active Problems (Updated 12/30/21 @ 14:48 by Edu Dumont MD) History of repair of right rotator cuff (Acute) Retained orthopedic hardware (Acute) Arthritis of carpometacarpal (CMC) joint of right thumb (Acute) Left inguinal hernia (Acute) Past Medical History Medical History Anxiety Depression Left inguinal hernia No known health problems Surgical History Surgical History History of shoulder surgery History of spinal surgery Social History Social History Patient Tobacco Use Status: Current everyday Tobacco user Tobacco use type: Cigarette Are you DNR?: No Advance Directives: No Advance Directives Information Provided: Yes Advance Directives on File: No Meds Allergies Allergy/AdvReac Type Severity Reaction Status Date / Time No Known Allergies Allergy Verified 12/30/21 13:02 [No Known Allergies*] Exam Exam Date and Time: January 09, 2022 0951 Pertinent Lab Results Pertinent Lab Results: Laboratory Tests 10/03/21 10/03/21 10:56 10:56 WBC 7.6 Hgb 16.0 Hct 47.8 Plt Count 224 Sodium 143 Potassium 4.6 Chloride 106 Carbon Dioxide 27 BUN 15 Creatinine 1.07 Assessment and Plan Assessment Anesthesia Assessment: Chart Reviewed Documented by User: Stan Jack MD 01/10/22 07:26 [facility] Past Medical History Medical History Anxiety Depression Left inguinal hernia No known health problems Family History Family history of problems with anesthesia: No Surgical History Surgical History History of shoulder surgery History of spinal surgery History of Problems with Anesthesia: No Social History Social History Patient Tobacco Use Status: Current everyday Tobacco user Tobacco use type: Cigarette Are you DNR?: No Advance Directives: No Advance Directives Information Provided: Yes Advance Directives on File: No Meds Allergies Allergy/AdvReac Type Severity Reaction Status Date / Time No Known Allergies Allergy Verified 12/30/21 13:02 [No Known Allergies*] Exam Airway Mallampati Class: I TM Dist: >3cm Neck ROM: Full Partial: Lower Heart: ok Lungs: ok Assessment and Plan Final Anesthetic Review Family History of Problems with Anesthesia: No History of Problems with Anesthesia: No ASA Class: II Final Preanesthetic Review: No Changes in Pt Med Stat, Meds/Allgs Chart Reviewed, Consent Obtained/Reviewed and Anes Risks/Benef Reviewed Patient Risk: Low Procedure Risk: Low Anesthetic Plan Anesthetic Plan: GA and Agree w/ Assess. and Plan Disposition: Standard PACU
[2022-01-10] VITALS (7 sets, daily range): BP systolic 120–173; BP diastolic 74–88; PULSE 57–71; RESP 14–18; TEMP 36.1–36.2; O2SAT 97–100; BMI 23.3
[2022-01-10] MEDS: Lactated Ringers 1,000 ML 100 ML IVCONT (06:50)
--- NOTE | 2022-01-10 07:20 | MHC.SHP ---
Pre-Procedural Eval Section A Date of Service: 01/10/22 Section B Chief Complaint: unilateral inguinal hernia Details of Present Illness: has had reducible L groin mass with pain and discomfort, CT showing fat-containing hernia Relevant Family History (Specify if Yes): No Relevant Social History: Tobacco Use Present Medications: see Short Stay Collaborative assessment Medical History: Significant History (chronic back pain, arthritis) Allergies: Allergies Allergy/AdvReac Type Severity Reaction Status Date / Time No Known Allergies Allergy Verified 12/30/21 13:02 [No Known Allergies*] Review of Systems Sugical H&P ROS: Negative: Constitution, Cardiovascular, Respiratory, Neurological, Psychiatric, Hem-Onc, Allergic/Immunologic, Gastrointestinal, Genitourinary, Musculoskeletal, Integumentary, Endocrine and Eyes/Ears/Nose/Throat Exam Surgical H&P Exam: Normal: HEENT, Normal: Heart, Normal: Lungs, Normal: Extremities, Normal: Skin and Normal: Neurological and Significant Findings: Abdomen (left inguinal mass) Plan Diagnosis/Plan: Unchanged I have reviewed the history and physical and performed a pertinent physical examination on my patient. No changes have occurred unless specified.
--- NOTE | 2022-01-10 08:20 | P.OP_ITS ---
Operative Note Operative Note Date of Service: 01/10/22 Narrative: Preop diagnosis: Left inguinal hernia Postop diagnosis: Left inguinal hernia, indirect Procedure: Repair of left inguinal hernia with mesh Surgeon: Emil Issa MD intellectual property legal assistant: ANABEL Tran The patient is a 66-year-old male a left groin mass consistent with a left inguinal hernia. He understood the technique of repair with mesh. He was aware of the risks, benefits, and alternatives Was brought to the operating room and placed supine on the table under general anesthesia via laryngeal mask airway. The left groin was prepped and draped in the usual sterile fashion. A surgical time-out was done. The patient received cefazolin 2 g IV preoperatively . I infiltrated the planned line of incision with lidocaine 1%. I made the short incision along an imaginary line from the anterior superior iliac spine to the pubic ramus using blade 15. This was carried down with electrocautery through the full-thickness of the skin subcutaneous fat down to the external oblique aponeurosis. I bluntly dissected the aponeurosis to define the external ring. I opened the external ring by making short incision along the fibers of the external oblique aponeurosis. I bluntly dissected the underside of the aponeurosis to create a pocket for the mesh. I then proceeded to gently dissect the spermatic cord and its contents using my index finger until I was able to pass a Mcclure drain around this. This Mcclure drain was used for traction. I identified the vas deferens and accompanying vessels and this were protected throughout the rest of the dissection. Identified a on the anterior medial aspect. The sac had a fluid collection which drained spontaneously during the dissection. To gently separate the sac from the rest of the cord contents with care being taken so as to make sure that we did not for the vas deferens and the accompanying vessels. I Dissectedthe sac all the way down to the internal ring and reduced this to the ring. This was therefore an indirect hernia. I reinforced this With a Prolene plug. The plug was secured with Prolene 2-0 sutures to the shelving edge of the inguinal and laterally and the internal oblique superiorly and medially using the inner iris ves of the plug. I reinforced the floor of the canal with a keyhole mesh. The tails of the mesh were passed around the cord at the level of the internal ring. I assured the mesh with Prolene 2-0 sutures to the shelving edge of the inguinal and laterally, the internal oblique superiorly medially and the pubic ramus inferomedially. I copiously irrigated. I observed for hemostasis. Once hemostasis was ensured, I proceeded to remove the nurse drain and closed the external oblique aponeurosis running Dexon 2-0 stitch to re-create the external ring. The subcutaneous layer was reapposed with Dexon 3-0 interrupted sutures. Skin closure was achieved with Dexon 4-0 subcuticular running stitch. The incision was infiltrated with Marcaine 0.5% for postop analgesia. Steri-Strips and dressings were applied. The procedure was then completed The patient tolerated procedure well. No complication noted. Initial and final counts of sponges instruments were correct. Estimated blood loss was about 20 cc . The patient was extubated without difficulty and transferred to the recovery room with stable vital signs.
[2022-01-10] MEDS: oxyCODONE HCl Immed Release 5 MG TABLET PO (09:16)
[2022-01-10] MEDS: Acetaminophen 325 MG TABLET 650 MG PO (09:16)
== END 2022-01-10 09:49 | disposition home or self-care (01) ==
PROVIDERS: Visit Provider Surgery
PROC: (CPT 49505; principal; 2022-01-10 07:30)
DX: K40.90 Unilateral inguinal hernia, without obstruction or gangrene, not specified as recurrent (principal); F17.210 Nicotine dependence, cigarettes, uncomplicated; F12.90 Cannabis use, unspecified, uncomplicated
CPT/HCPCS: 49505; C1781; J0690; J1100; J1885; J2405; J3010

== ENCOUNTER → 2022-01-27 11:16 | Outpatient (BNVA) | payer OTHER, SELFPAY | PROVIDERS: Visit Provider Surgery | DX: Z13.89 Encounter for screening for other disorder (principal) ==

== ENCOUNTER 2022-02-25 14:48 | Outpatient (REF) | payer OTHER, SELFPAY ==
--- NOTE | ~2022-02-25 | XR_ITS ---
EXAMINATION: XR RIBS, BILATERAL CLINICAL INFORMATION: Pleurodynia. COMPARISON: None. TECHNIQUE: 3 views of the bilateral ribs were obtained. FINDINGS: Lungs are clear. No consolidation, pneumothorax, or pleural effusion. The cardiomediastinal silhouette and pulmonary vasculature are normal. There is old healed fracture right clavicle stabilized with metallic plate and screws. The fracture fragments are in alignment. The right rotator cuff surgical changes as well. There is old healed fracture deformity right posterior 5th and 8th rib. No acute fractures seen at this time. XR/XR ribs BI 3V IMPRESSION: Unremarkable chest exam. No acute rib fracture seen. There are old right rib fractures as described above. Also visualized is an old healed right clavicle fracture with internal stabilization with plate and screws. There are right rotator cuff surgical changes.
--- NOTE | ~2022-02-25 | US_ITS ---
EXAMINATION: US SCROTUM CLINICAL INFORMATION: Left testicular pain. COMPARISON: Ultrasound scrotum 08/15/2018. TECHNIQUE: A sonogram of the scrotum was performed assessing herron-scale appearance and color Doppler flow. Spectral Doppler analysis of the arterial and venous flow were performed in the testes bilaterally. FINDINGS: RIGHT: Right testicle measures 4.0 x 1.8 x 2.9 cm, volume 10.8 mL. No focal testicular parenchymal lesions are visualized. Spectral Doppler analysis of the arterial and venous flow is normal in the right testis. Right epididymal head is normal in size. There are 2 right epididymal head cysts measuring 3 mm and 2 mm. No right hydrocele or varicocele is seen. Right epididymal Doppler flow is normal. LEFT: Left testicle measures 4.2 x 1.5 x 2.5 cm, volume 8.6 mL. There are 2 cysts in or adjacent the inferior left testicle measuring 7 x 4 x 3 mm and 3 x 2 x 3 mm. Previously one 4 mm cyst was seen. There is a left appendix testis. No other focal testicular parenchymal lesions are visualized. Spectral Doppler analysis of the arterial and venous flow is normal in the left testis. Left epididymal head is normal in size. There is a complex multiloculated epididymal head cyst measuring 6 x 5 x 6 mm. No left varicocele is seen. There is a small left hydrocele. Left epididymal Doppler flow is normal. US/US scrotum IMPRESSION: Small left testicular cysts. Bilateral epididymal head cysts. Small left hydrocele.
== END 2022-02-25 14:49 | disposition home or self-care (01) ==
LOC: HO.US 14:48
PROVIDERS: PCP Internal Medicine; Visit Provider Internal Medicine
DX: R07.81 Pleurodynia (principal); N50.812 Left testicular pain
CPT/HCPCS: 71110; 76870

== ENCOUNTER → 2022-03-06 10:58 | Outpatient (BNVA) | payer OTHER, SELFPAY | PROVIDERS: PCP Internal Medicine; Referring Provider Internal Medicine; Visit Provider Surgery | DX: K40.90 Unilateral inguinal hernia, without obstruction or gangrene, not specified as recurrent (principal); F41.8 Other specified anxiety disorders; F17.210 Nicotine dependence, cigarettes, uncomplicated | CPT/HCPCS: 99212 ==

== ENCOUNTER 2022-03-24 08:15 | Outpatient (REF) | payer OTHER, SELFPAY ==
--- NOTE | ~2022-03-24 | XR_ITS ---
EXAMINATION: XR KNEE, RIGHT CLINICAL INFORMATION: Right knee pain COMPARISON: None TECHNIQUE: Four views of the right knee. 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 Axial view shows no lateralization or tilting or narrowing patellofemoral joint. There is a small to moderate suprapatellar effusion. Hoffa's fat pad appears normal. Bony mineralization is normal. There is no destructive process or periostitis. No fracture or dislocation. The deep infrapatellar recess appears preserved. XR/XR knee RT 4V IMPRESSION: -Small to moderate suprapatellar effusion. -Bipartite patella. -No fracture or, destructive process, or joint narrowing.
== END 2022-03-24 08:16 | disposition home or self-care (01) ==
LOC: HO.XRAY 08:15
PROVIDERS: PCP Internal Medicine; Visit Provider Nurse Practitioner Family
DX: M25.561 Pain in right knee (principal); S89.91XA Unspecified injury of right lower leg, initial encounter
CPT/HCPCS: 73564; 99202

== ENCOUNTER 2022-04-02 19:23 | Outpatient (REF) | payer OTHER, SELFPAY ==
--- NOTE | ~2022-04-02 | MR_ITS ---
EXAMINATION: MR CERVICAL SPINE WITHOUT CONTRAST CLINICAL INFORMATION: Radiculopathy. COMPARISON: Cervical spine radiographs 03/15/2016. TECHNIQUE: MRI of the cervical spine was obtained using routine sequences without contrast. FINDINGS: There is nonspecific reversal of the cervical lordosis. There is slight anterolisthesis of C3 on C4. Vertebral heights are preserved. There are mixed type II and type III degenerative endplate changes at C5-C6. Slight loss of intervertebral disc height and T2 signal intensity at multiple levels related to disc degeneration. There is no cord compression or abnormal intramedullary signal changes. The cervicomedullary junction is normal. Limited visualization of the posterior fossa reveals no abnormal finding. Occipital condyles and lateral C1 masses are intact. There is degenerative arthrosis of the atlantodental joint. C1-C2 articular facets are unremarkable. At C2-C3 the annular contour is normal. Bilateral facet degenerative change. No canal stenosis. No substantial neuroforaminal encroachment. At C3-C4 there is a slightly bulging disc. No canal stenosis. Uncovertebral joint spurring and facet degenerative change causes mild bilateral neural foramen encroachment. At C4-C5 there is a bulging disc. No canal stenosis. Uncovertebral joint spurring and facet degenerative change causes severe right and moderate left neuroforaminal encroachment. At C5-C6 there is a bulging disc. No canal stenosis. Uncovertebral joint spurring and facet degenerative change causes moderate bilateral neuroforaminal encroachment. At C6-C7 there is a bulging disc. No canal stenosis. Uncovertebral joint spurring and facet degenerative change causes moderate left and mild right neuroforaminal encroachment. At C7-T1 the annular contour is normal. Bone facet degenerative change. No canal stenosis. No neuroforaminal encroachment. Visualized soft tissues of the neck are normal. Vascular flow voids are grossly maintained. MR/MR cervical spine wo con IMPRESSION: There is multilevel degenerative spondylosis of the cervical spine. Slight anterolisthesis of C3 on C4 that appears to be related to advanced facet degenerative changes at this level. There is no canal compromise or cord compression. No abnormal intramedullary signal changes. There are varying degrees of neuroforaminal encroachment related to uncovertebral joint spurring and facet degenerative change as described above.
== END 2022-04-02 19:24 | disposition home or self-care (01) ==
LOC: HO.MRI 19:23
PROVIDERS: Visit Provider Internal Medicine
DX: M54.12 Radiculopathy, cervical region (principal)
CPT/HCPCS: 72141

== ENCOUNTER → 2022-04-15 15:38 | Outpatient (BNVA) | payer OTHER, SELFPAY | PROVIDERS: PCP Internal Medicine; Visit Provider Nurse Practitioner Family | DX: Z13.89 Encounter for screening for other disorder (principal) | CPT/HCPCS: Q3014 ==

== ENCOUNTER 2022-04-23 07:16 | Outpatient (REF) | payer OTHER, SELFPAY ==
--- NOTE | ~2022-04-23 | MR_ITS ---
MRI OF THE BRAIN WITHOUT IV CONTRAST INDICATION: Lacunar infarct. COMPARISON: Brain MRI 07/22/2017. TECHNIQUE: Multiplanar multisequence MR imaging of the brain was obtained without IV contrast. FINDINGS: Mild chronic microangiopathy, chronic lacunar infarcts within the cerebellar hemispheres bilaterally, and a small chronic cortical/subcortical infarct within the left parietal lobe are again noted. There is no hydrocephalus, extra-axial surface collection, or herniation. The major flow voids at the skull base are preserved. There is no acute infarct on diffusion-weighted imaging. There is no intracranial hemorrhage on the gradient recalled echo acquisition. The midline structures are normal. The cerebellar tonsils are normally positioned. The craniocervical junction is normal. Osseous marrow signal intensity is homogenous. The visualized soft tissues are unremarkable. MR/MR head/brain wo con IMPRESSION: - No acute intracranial findings. - Mild chronic microangiopathy, chronic lacunar infarcts within the cerebellar hemispheres bilaterally, and a small chronic cortical/subcortical infarct within the left parietal lobe are again noted.
== END 2022-04-23 07:17 | disposition home or self-care (01) ==
LOC: HO.MRI 07:16
PROVIDERS: Visit Provider Psychiatry & Neurology Neurology
DX: I63.9 Cerebral infarction, unspecified (principal)
CPT/HCPCS: 70551

== ENCOUNTER → 2022-05-07 09:06 | Outpatient (BNVA) | payer OTHER, SELFPAY | PROVIDERS: PCP Internal Medicine; Visit Provider Urology | DX: R10.30 Lower abdominal pain, unspecified (principal) | CPT/HCPCS: 99202 ==

== ENCOUNTER → 2022-05-12 09:09 | Outpatient (BNVA) | payer OTHER, SELFPAY | PROVIDERS: PCP Internal Medicine; Visit Provider Surgery | DX: R10.32 Left lower quadrant pain (principal) | CPT/HCPCS: 99212 ==

== ENCOUNTER 2022-05-18 20:18 | Emergency (ER) | payer OTHER, SELFPAY | END 2022-05-18 21:20 | disposition left against medical advice (07) | PROVIDERS: Emergency Provider Emergency Medicine | DX: M54.50 Low back pain, unspecified (principal) | CPT/HCPCS: 99281 ==

== ENCOUNTER 2022-05-28 06:20 | Outpatient (REF) | payer OTHER, SELFPAY | END 2022-05-28 06:21 | disposition home or self-care (01) | LOC: HO.RADIR 06:20 | PROVIDERS: Visit Provider Internal Medicine | DX: M25.561 Pain in right knee (principal) | CPT/HCPCS: 20610; 20611; J1020 ==

== ENCOUNTER → 2022-05-30 14:34 | Outpatient (BNVA) | payer OTHER, SELFPAY | PROVIDERS: Visit Provider Nurse Practitioner Family | DX: M43.06 Spondylolysis, lumbar region (principal); M47.812 Spondylosis without myelopathy or radiculopathy, cervical region; M25.561 Pain in right knee; M25.461 Effusion, right knee; M79.18 Myalgia, other site; M50.30 Other cervical disc degeneration, unspecified cervical region; Q74.1 Congenital malformation of knee | CPT/HCPCS: Q3014 ==

== ENCOUNTER → 2022-06-26 09:28 | Outpatient (BNVA) | payer OTHER, SELFPAY | PROVIDERS: Visit Provider Surgery | DX: R10.32 Left lower quadrant pain (principal) | CPT/HCPCS: 99212 ==

== ENCOUNTER 2022-07-02 06:03 | Outpatient (REF) | payer OTHER, SELFPAY ==
--- NOTE | ~2022-07-02 | XR_ITS ---
EXAMINATION: XR FINGER, LEFT CLINICAL INFORMATION: Left fifth finger pain COMPARISON: None TECHNIQUE: 3 views of left fifth digit. FINDINGS: There is loss of PIP and DIP joint with periarticular spurring. The soft tissues are normal. No visible acute fracture, dislocation or subluxation seen. There is mild dorsal soft tissue swelling at the DIP joint.. XR/XR finger LT min 2V IMPRESSION: Degenerative osteoarthritic changes PIP and DIP joints third digit with mild dorsal soft tissue swelling at the DIP joint
--- NOTE | ~2022-07-02 | FL_ITS ---
EXAMINATION: XR FLUOROSCOPY WITH IMAGES CLINICAL INFORMATION: M54.16 - Radiculopathy, lumbar region COMPARISON: M54.16 - Radiculopathy, lumbar region TECHNIQUE: Fluoroscopy performed by Dr. Tony Hobbs. Fluoroscopy time: 0.2 minutes. Cumulative Dose: 2.99 mGy. DAP: 0.640 Gy-cm2. Images: 2. FINDINGS: There is a spinal needle or catheter entering lower sacral hiatus. There is contrast seen in the epidural space. No visible vascular communication. There are degenerative changes lower lumbar spine with disc narrowing at L4-L5 and disc spaces and clips overlying L5-S1. FL/FL guidance in treatment room IMPRESSION: Fluoroscopy for pain management procedure.
== END 2022-07-02 06:04 | disposition home or self-care (01) ==
LOC: HO.RADIR 06:03
PROVIDERS: Visit Provider Internal Medicine
DX: M54.16 Radiculopathy, lumbar region (principal); M79.645 Pain in left finger(s)
CPT/HCPCS: 62323; 73140; J1040; J2795

== ENCOUNTER → 2022-07-22 12:55 | Outpatient (BNVA) | payer OTHER, SELFPAY | PROVIDERS: Visit Provider Physician Assistant | DX: S40.251A Superficial foreign body of right shoulder, initial encounter (principal); L08.9 Local infection of the skin and subcutaneous tissue, unspecified; X58.XXXA Exposure to other specified factors, initial encounter; Y93.9 Activity, unspecified; Y92.9 Unspecified place or not applicable; Y99.9 Unspecified external cause status | CPT/HCPCS: 99202 ==

== ENCOUNTER 2022-07-29 07:12 | Outpatient (REF) | payer OTHER, SELFPAY ==
--- NOTE | ~2022-07-29 | CT_ITS ---
EXAMINATION: CT ABDOMEN AND PELVIS WITHOUT CONTRAST CLINICAL INFORMATION: Left lower quadrant pain COMPARISON: Previous CT of the abdomen and pelvis September 2021 TECHNIQUE: Multidetector volumetric imaging was performed from the superior aspect of the liver through the pubic symphysis. Exam was done with the patient performing Valsalva maneuver Sagittal and coronal reformatted images were obtained on the technologist's workstation. This CT examination was performed using dose optimization techniques as appropriate, variously including the following: *Automated exposure control *Adjustment of mA and/or kV according to patient size (this includes techniques or standardized protocols for targeted exams where dose is matched to indication/reason for exam; i.e. extremities or head) *Use of iterative reconstruction technique DLP: 299 mGy-cm FINDINGS: LUNG BASES: There is linear scarring or chronic subsegmental atelectasis in the left lower lobe. There are emphysematous changes. These findings are similar to previous exam. LIVER, GALLBLADDER, AND BILIARY TREE: The liver is normal in size, and shape. There is a small calcification in the right lobe of the liver that is stable. There are small gallstones. No biliary duct dilatation. PANCREAS: Unremarkable. SPLEEN: Unremarkable. ADRENAL GLANDS: Unremarkable. KIDNEYS AND URETERS: 4 mm stone in the upper pole of the right kidney. 3 cm cyst in the upper pole of the left kidney. BLADDER: Unremarkable. GASTROINTESTINAL TRACT: Diverticulosis of the colon. No evidence of diverticulitis. Small and large bowel otherwise normal. Normal appendix. Normal stomach. ABDOMINAL WALL: There is asymmetric increased soft tissue seen in the left inguinal region. This is has a central low attenuation component suggestive of fluid. This is decreased in size from September 2021 exam. This may represent postsurgical change. Correlation with clinical history recommended. There is bulge in the right inguinal region. There are small bowel loops seen just deep to the bulge. LYMPH NODES: Normal. VASCULAR: Atherosclerotic disease. No aneurysm. PELVIC VISCERA: The prostate gland is enlarged measuring 4 x 5 cm in AP and transverse dimension. OSSEOUS STRUCTURES: Degenerative changes of the spine. Postsurgical changes with disc interspace at L5-S1. CT/CT abdomen pelvis wo IV con IMPRESSION: Asymmetric increased soft tissue in the left inguinal region with central fluid questionable for postsurgical change. Correlation with clinical history is recommended. This appears decreased in size September 2021 exam. Right inguinal bulge. Right renal stone. Left renal cyst. Gallstones. Diverticulosis. Enlarged prostate gland. Fleischner guidelines were followed.
== END 2022-07-29 07:13 | disposition home or self-care (01) ==
LOC: HO.CT 07:12
PROVIDERS: Visit Provider Surgery
DX: R10.32 Left lower quadrant pain (principal)
CPT/HCPCS: 74176

== ENCOUNTER → 2022-08-07 09:36 | Outpatient (BNVA) | payer OTHER, SELFPAY | PROVIDERS: Visit Provider Surgery | DX: R10.32 Left lower quadrant pain (principal); M25.551 Pain in right hip; M53.3 Sacrococcygeal disorders, not elsewhere classified; M43.06 Spondylolysis, lumbar region; M54.16 Radiculopathy, lumbar region; M96.1 Postlaminectomy syndrome, not elsewhere classified | CPT/HCPCS: 99212 ==

== ENCOUNTER → 2022-08-08 08:36 | Outpatient (BNVA) | payer OTHER, SELFPAY | PROVIDERS: Visit Provider Urology | DX: R10.32 Left lower quadrant pain (principal); N20.0 Calculus of kidney | CPT/HCPCS: Q3014 ==

== ENCOUNTER 2022-09-02 10:13 | Outpatient (REF) | payer OTHER, SELFPAY | END 2022-09-02 10:14 | disposition home or self-care (01) | LOC: HO.XRAY 10:13 | PROVIDERS: PCP Internal Medicine; Visit Provider Internal Medicine | DX: M25.551 Pain in right hip (principal) | CPT/HCPCS: 73502 ==

== ENCOUNTER → 2022-09-12 07:59 | Outpatient (BNVA) | payer OTHER, SELFPAY | PROVIDERS: Visit Provider Physician Assistant | DX: M96.1 Postlaminectomy syndrome, not elsewhere classified (principal) | CPT/HCPCS: 99202 ==

== ENCOUNTER 2022-09-17 14:18 | Day surgery (SDC) | payer OTHER, SELFPAY ==
[2022-09-17 14:32] VITALS: BP 144/77; PULSE 65; RESP 16; TEMP 36.5; O2SAT 99
[2022-09-17 14:34] VITALS: BMI 21.6
[2022-09-17 17:14] VITALS: BP 134/79; PULSE 60; RESP 20; TEMP 36.3; O2SAT 98
--- NOTE | 2022-09-18 11:27 | PM.OP ---
Brief Operative Note Date of Service: 09/17/22 Pre-op diagnosis: Chronic right knee pain Post-op diagnosis: same Procedure: Temporary right saphenous nerve stimulator placement Implants: Sprint temporary PNS system Surgeon: Tony Hobbs MD Anesthesia: local Was an Manager Of Compliance used for this Procedure?: No Estimated blood loss (mL): 3 Pathology: none sent Condition: stable Disposition: same day
--- NOTE | 2022-09-19 08:48 | P.OP_ITS ---
Operative Note Operative Note Date of Service: 09/19/22 Narrative: Peripheral Nerve Stimulation Temporary Lead Placement, Ultrasound-Guided, Saphenous Nerve, Right ? After the risks, benefits and alternatives were discussed with the patient and informed consentwas obtained, patient was placed in the supine position and padded to foster comfort. Appropriate skin and bony landmarks were identified, and pertinent vascular structures were located. The skin overlying the needle entry site was prepped and draped in sterile fashion. Ultrasound was used to identify the femoral artery, the femoral vein and the saphenous nerve. After identifying and marking the intended target along the course of the saphenous nerve, the skin around the planned entry point and the subcutaneous tissues were injected with local anesthetic. An introducer needle and stimulating probe were assembled, inserted and advanced along the intended course of the saphenous; nerve, taking care to maintain the proper depth of insertion as the introducer was advanced under ultrasound guidance. The introducer needle was delivered to a location in proximity to the nerve taking care not to puncture the femoral artery or the vein. Multiple stimulation parameters were used to deliver stimulation to the saphenous nerve in concert with stimulating at multiple positions around the nerve. Nerve target acquisition was confirmed noting generation of sensory and mild motor effects (paresthesia, muscle tension, etc) in the medial knee, leg and ankle; corresponding to the distribution of the saphenous nerve. Various electrical parameter combinations were tested, and the lead location was adjusted (physic ally relocated under ultrasound guidance) until the patient indicated medial knee paresthesia and tension overlapping the distribution of the patient?s typical region of pain. The stimulating probe was removed from the introducer and a percutaneous lead was guided through the needle and delivered to a location in similar proximity to the nerve. Final location was verified with electrical stimulation and documented. The introducer needle was removed, and the exposed end of the percutaneous lead was attached to an external stimulator unit. Various electrical parameter combinations were again tested until the patient indicated paresthesia and muscle tension overlapping the distribution of the patient?s typical region of pain. After confirming that lead impedance was in the normal range, the external unit was detached, the needle was removed, and the lead was anchored at the skin. The lead was threaded into the connector block and electrical continuity and desired patient response was confirmed. The connector block was attached to the external stimulator unit. The site was covered with a sterile occlusive dressing. A final ultrasound image was taken to document final placement. The patient was observed for stability of vital signs and comfort.
--- NOTE | 2022-09-19 08:48 | MHC.SHP ---
Pre-Procedural Eval Section A Date of Service: 09/17/22 The patient is an INPATIENT: No Changes since office visit: Yes Patient answered all questions The History & Physical has been completed within 30 days and I have reviewed it.: No Section B Chief Complaint: Chronic right knee pain, right knee osteoarthritis Relevant Family History (Specify if Yes): No Relevant Social History: Other (specify) Present Medications: see Short Stay Collaborative assessment Medical History: No relevant PMH History of Previous Operations: No relevant previous surgery Allergies: Allergies Allergy/AdvReac Type Severity Reaction Status Date / Time No Known Allergies Allergy Verified 09/17/22 14:33 [No Known Allergies*] Review of Systems Sugical H&P ROS: Negative: Constitution, Cardiovascular and Respiratory Exam Surgical H&P Exam: Normal: HEENT, Normal: Heart and Normal: Lungs Plan Diagnosis/Plan: Unchanged I have reviewed the history and physical and performed a pertinent physical examination on my patient. No changes have occurred unless specified.
== END 2022-09-17 17:25 | disposition home or self-care (01) ==
PROVIDERS: Visit Provider Internal Medicine
PROC: (CPT 64555; principal; 2022-09-17 15:20)
DX: M25.461 Effusion, right knee (principal); M79.604 Pain in right leg; M25.551 Pain in right hip; G89.29 Other chronic pain; M54.16 Radiculopathy, lumbar region; M43.06 Spondylolysis, lumbar region; M53.3 Sacrococcygeal disorders, not elsewhere classified; M96.1 Postlaminectomy syndrome, not elsewhere classified; F32.A Depression, unspecified; F41.1 Generalized anxiety disorder
CPT/HCPCS: 64555; C1778

== ENCOUNTER 2022-10-08 10:05 | Outpatient (REF) | payer OTHER, SELFPAY ==
--- NOTE | ~2022-10-08 | US_ITS ---
EXAMINATION: US RETROPERITONEAL LIMITED (AORTA) CLINICAL INFORMATION: History of smoking. COMPARISON: None TECHNIQUE: Contreras-scale, color Doppler and spectral Doppler evaluation of the abdominal aorta. FINDINGS: There is atherosclerotic disease. The measurements of the aorta in maximum AP and transverse dimensions respectively are as follows: Proximal: 2.8 x 2.9 cm. Mid: 2.3 x 2.4 cm. Distal: 2.2 x 2.4 cm. PSV: 46 cm/s. The measurements of the common iliac arteries in maximum AP and TRV dimensions are as follows: Right Common Iliac Artery: 1.4 x 1.2 cm. Left Common Iliac Artery: 1.2 x 1.1 cm. US/US abdominal aortic aneurysm IMPRESSION: No abdominal aortic or iliac artery aneurysm.
== END 2022-10-08 10:06 | disposition home or self-care (01) ==
LOC: HO.US 10:05
PROVIDERS: Visit Provider Internal Medicine
DX: Z13.6 Encounter for screening for cardiovascular disorders (principal); Z72.0 Tobacco use
CPT/HCPCS: 76706

== ENCOUNTER → 2022-11-14 09:08 | Outpatient (BNVA) | payer OTHER, SELFPAY | PROVIDERS: Visit Provider Internal Medicine | DX: M96.1 Postlaminectomy syndrome, not elsewhere classified (principal); M25.561 Pain in right knee | CPT/HCPCS: 99212 ==

== ENCOUNTER → 2023-04-20 09:04 | Outpatient (BNVA) | payer OTHER, SELFPAY | PROVIDERS: PCP Internal Medicine; Visit Provider Internal Medicine | DX: M96.1 Postlaminectomy syndrome, not elsewhere classified (principal) | CPT/HCPCS: 99212 ==

== ENCOUNTER 2023-04-28 14:06 | Outpatient (REF) | payer OTHER, SELFPAY ==
--- NOTE | ~2023-04-28 | US_ITS ---
EXAMINATION: US abdomen, LIMITED/FOLLOW UP CLINICAL INFORMATION: Severe left inguinal pain. History of hernia repair 1 year ago COMPARISON: None available. TECHNIQUE: Limited ultrasound imaging to the left inguinal region was performed. FINDINGS: There is a hypoechoic area in the left inguinal region measuring 4.65 a 4.57 x 1.0 cm. There is echogenic shadowing and nonmobile mass. Question large scar. A small recurrent hernia or a complex seroma/hematoma cannot be excluded. US/US pelvic limited IMPRESSION: Hypoechoic area in the left inguinal region with echogenic shadowing and nonmobile mass. Question this scar, small recurrent hernia or complex seroma/hematoma. Consider CT pelvis without contrast
== END 2023-04-28 14:07 | disposition home or self-care (01) ==
LOC: HO.HMGCX 14:06
PROVIDERS: PCP Internal Medicine; Visit Provider Student in an Organized Health Care Education/Training Program
DX: R10.2 Pelvic and perineal pain (principal)
CPT/HCPCS: 76857

== ENCOUNTER 2023-05-01 07:28 | Outpatient (REF) | payer OTHER, SELFPAY ==
--- NOTE | ~2023-05-01 | US_ITS ---
EXAMINATION: US RETROPERITONEAL LIMITED (RENAL ONLY) CLINICAL INFORMATION: Flank pain. History of ureteral stones, ureterolithiasis. COMPARISON: CT abdomen and pelvis 07/29/2022. Ultrasound abdomen limited 09/13/2018 and 03/18/2017. TECHNIQUE: Real-time imaging of the kidneys. Technically limited study secondary to body habitus. FINDINGS: RIGHT KIDNEY: 9.9 x 5.6 x 5.6 cm (SAG x AP x TRV). The kidney is normal in size, contour, and echogenicity. Renal cortical thickness is normal. No calculi or focal parenchymal lesions. No hydronephrosis. LEFT KIDNEY: 9.9 x 5.9 x 4.7 cm (SAG x AP x TRV). The kidney is normal in size, contour, and echogenicity. Renal cortical thickness is normal. No renal calculi or hydronephrosis. At the interpolar aspect, a 2.6 x 2.7 x 2.8 cm mildly complex cyst is seen, with fine septation. This shows no mural nodularity or associated color Doppler flow. The appearance is stable from the CT abdomen and pelvis dated 07/29/2022 (3:30 and 4:65). US/US renal BI IMPRESSION: There is a continued stable mildly complex left renal cyst with fine septation. The examination is otherwise unremarkable.
== END 2023-05-01 07:29 | disposition home or self-care (01) ==
LOC: HO.US 07:28
PROVIDERS: PCP Registered Nurse; Visit Provider Emergency Medicine
DX: N20.1 Calculus of ureter (principal)
CPT/HCPCS: 76775

== ENCOUNTER 2023-05-08 09:00 | Outpatient (REF) | payer OTHER, SELFPAY | END 2023-05-08 09:01 | disposition home or self-care (01) | LOC: HO.HOSX 09:00 | PROVIDERS: Visit Provider Physician Assistant | DX: Z13.89 Encounter for screening for other disorder (principal) ==

== ENCOUNTER 2023-05-20 13:23 | Outpatient (REF) | payer OTHER, SELFPAY ==
--- NOTE | ~2023-05-20 | XR_ITS ---
EXAMINATION: XR LUMBOSACRAL SPINE WITH OBLIQUES CLINICAL INFORMATION: Postlaminectomy syndrome. COMPARISON: Radiographs dated 12/19/2021. TECHNIQUE: Lateral views of the lumbar spine were performed in flexion and extension. FINDINGS: Vertebral body heights and alignment are normal. At L2-L3 and L4-L5, there is moderate disc space narrowing. At L5-S1, an intervertebral cage device is noted. No acute fracture or spondylolisthesis is seen. There is no instability with flexion or extension. This multi-level mild lumbar spondylosis. The posterior elements are intact. There are aortoiliac atherosclerotic calcifications. XR/XR lumbar spine 6V w bending IMPRESSION: 1. There is moderate degenerative disc disease at L2-L3 and L4-L5. 2. There has been a prior L5-S1 fusion. 3. There is no instability with flexion or extension.
--- NOTE | ~2023-05-20 | XR_ITS ---
EXAMINATION: XR SHOULDER, RIGHT CLINICAL INFORMATION: Pain. COMPARISON: Radiographs dated 12/19/2021. TECHNIQUE: AP external rotation, Grashey, scapular Y, and axillary views of the right shoulder. FINDINGS: Bony alignment and mineralization are normal. The glenohumeral joint is intact. An orthopedic splint and screws are applied to the distal right clavicle. The acromioclavicular and coracoclavicular intervals are normal. There is a distal acromial undersurface osteophyte, and cortical irregularity seen of the greater tuberosity proximal right humerus. There are right humeral orthopedic anchors. No soft tissue calcifications or foreign body is seen. There is no right pneumothorax. There is are multiple healed posterior right rib fractures. XR/XR shoulder RT min 2V IMPRESSION: There are stable postoperative changes, as detailed. No acute fracture or dislocation is seen. EXAMINATION: XR SHOULDER, LEFT CLINICAL INFORMATION: Pain. COMPARISON: None available. TECHNIQUE: AP external rotation, Grashey, scapular Y, and axillary views of the left shoulder. FINDINGS: Bony alignment and mineralization are normal. The glenohumeral joint is intact. The acromioclavicular and coracoclavicular intervals are normal. There is very mild osteoarthritic change of the acromioclavicular joint. No fracture or dislocation is seen. No soft tissue calcifications or foreign body is seen. There is no left pneumothorax. IMPRESSION: 1. No fracture or dislocation is seen. 2. There is minimal osteoarthritic change of the left acromioclavicular joint.
--- NOTE | ~2023-05-20 | CT_ITS ---
EXAMINATION: CT PELVIS WITHOUT CONTRAST CLINICAL INFORMATION: Intra-abdominal and pelvic swelling mass and lump COMPARISON: Ultrasound pelvis 04/28/2023: Hypoechoic area in the left inguinal region with echogenic shadowing and nonmobile mass. Question this scar, small recurrent hernia or complex seroma/hematoma. CT abdomen and pelvis 07/29/2022, 10/03/2021 and 08/15/2018. TECHNIQUE: Helical scanning was performed with submillimeter collimation through the pelvis. Sagittal and coronal multiplanar 2-D reconstructions were obtained. This CT examination was performed using dose optimization techniques as appropriate, variously including the following: *Automated exposure control *Adjustment of mA and/or kV according to patient size (this includes techniques or standardized protocols for targeted exams where dose is matched to indication/reason for exam; i.e. extremities or head) *Use of iterative reconstruction technique DLP: 323 mGy-cm FINDINGS: There is mild prostatic enlargement. Prosthetic calcifications are seen. Seminal vesicles appear normal. In the area of question in the left groin seen on ultrasound, there is soft tissue thickening seen in the region of the inguinal canal/cord measuring about 1.1 cm in diameter. This has been present in the past and is unchanged when compared to the 07/29/2022 study and appears decreased when compared to 10/03/2021. On the 08/15/2018 study, this was not present. Small bilateral inguinal lymph nodes are present. No abdominal wall hernia is seen. The bladder is unremarkable with a minimally thickened symmetric wall. The visualized bowel is unremarkable. A few scattered colonic diverticula are present without diverticulitis. The appendix appears normal. No retroperitoneal lymphadenopathy is seen. No free fluid is detected. Calcific atherosclerotic change present in the aorta and iliofemoral vessels without aneurysm. Degenerative changes are present in the spine at L4-L5. There is an interbody fixation device present at L5-S1. Hip joints appear normal.. CT/CT pelvis wo IV con IMPRESSION: 1. Soft tissue thickening in the left inguinal canal/spermatic cord as described above. This is long-standing and has decreased in size when compared to the 10/03/2021 study but is stable when compared to the 07/29/2022 study. Please correlate with prior surgical history and possible scarring. No calcification is seen. If further characterization is needed, pre and postcontrast MRI would be the exam of choice 2. Incidental note made of mild BPH, colonic diverticula without diverticulitis and degenerative changes in the spine with interbody fixation device at L5-S1.
--- NOTE | ~2023-05-20 | XR_ITS ---
EXAMINATION: XR SHOULDER, RIGHT CLINICAL INFORMATION: Pain. COMPARISON: Radiographs dated 12/19/2021. TECHNIQUE: AP external rotation, Grashey, scapular Y, and axillary views of the right shoulder. FINDINGS: Bony alignment and mineralization are normal. The glenohumeral joint is intact. An orthopedic splint and screws are applied to the distal right clavicle. The acromioclavicular and coracoclavicular intervals are normal. There is a distal acromial undersurface osteophyte, and cortical irregularity seen of the greater tuberosity proximal right humerus. There are right humeral orthopedic anchors. No soft tissue calcifications or foreign body is seen. There is no right pneumothorax. There is are multiple healed posterior right rib fractures. XR/XR shoulder LT min 2V IMPRESSION: There are stable postoperative changes, as detailed. No acute fracture or dislocation is seen. EXAMINATION: XR SHOULDER, LEFT CLINICAL INFORMATION: Pain. COMPARISON: None available. TECHNIQUE: AP external rotation, Grashey, scapular Y, and axillary views of the left shoulder. FINDINGS: Bony alignment and mineralization are normal. The glenohumeral joint is intact. The acromioclavicular and coracoclavicular intervals are normal. There is very mild osteoarthritic change of the acromioclavicular joint. No fracture or dislocation is seen. No soft tissue calcifications or foreign body is seen. There is no left pneumothorax. IMPRESSION: 1. No fracture or dislocation is seen. 2. There is minimal osteoarthritic change of the left acromioclavicular joint.
== END 2023-05-20 13:24 | disposition home or self-care (01) ==
LOC: HO.CT 13:23
PROVIDERS: PCP Internal Medicine; Visit Provider Student in an Organized Health Care Education/Training Program
DX: M96.1 Postlaminectomy syndrome, not elsewhere classified (principal); R19.00 Intra-abdominal and pelvic swelling, mass and lump, unspecified site; M25.511 Pain in right shoulder; M25.512 Pain in left shoulder
CPT/HCPCS: 72114; 72192; 73030

== ENCOUNTER 2023-07-01 09:43 | Day surgery (SDC) | payer OTHER, SELFPAY ==
--- NOTE | ~2023-07-01 | FL_ITS ---
EXAMINATION: XR FLUOROSCOPY WITH IMAGES CLINICAL INFORMATION: Suprascapular SPRINT, right. COMPARISON: None available. TECHNIQUE: Fluoroscopy Supervised By: Dr. Tony Hobbs. Fluoroscopy Time: 0.2 minutes. Cumulative Dose: 1.20 mGy. DAP: 0.148 Gycm2. Images: 2. FINDINGS: Images demonstrate probe and wire adjacent to the superior right scapula. There is orthopedic hardware with side plate and screws transfixing old right clavicle fracture. There are multiple surgical tacks or anchors in the right humeral head. FL/FL guidance in OR IMPRESSION: Fluoroscopic guidance for management procedure
[2023-07-01 11:10] VITALS: BMI 21.6
[2023-07-01 11:11] VITALS: BP 142/78; PULSE 53; RESP 16; TEMP 36.6; O2SAT 100
--- NOTE | 2023-07-01 12:42 | MHC.SHP ---
Pre-Procedural Eval Section A Date of Service: 07/01/23 The patient is an INPATIENT: No Changes since office visit: Yes Patient answered all questions The History & Physical has been completed within 30 days and I have reviewed it.: Yes Section B Chief Complaint: Pain in right shoulder, chronic intractable pain Relevant Family History (Specify if Yes): Yes Relevant Social History: None Present Medications: see Short Stay Collaborative assessment Medical History: No relevant PMH History of Previous Operations: No relevant previous surgery Allergies: Allergies Allergy/AdvReac Type Severity Reaction Status Date / Time No Known Allergies Allergy Verified 04/20/23 09:11 [No Known Allergies*] Review of Systems Sugical H&P ROS: Negative: Constitution, Cardiovascular and Respiratory Exam Surgical H&P Exam: Normal: HEENT, Normal: Heart and Normal: Lungs Plan Diagnosis/Plan: Unchanged I have reviewed the history and physical and performed a pertinent physical examination on my patient. No changes have occurred unless specified. Proceed with right suprascapular temporary nerve stimulator placement. Time Spent With Patient Time: Total time managing care of this patient today ____ minutes.
--- NOTE | 2023-07-01 12:47 | P.BOP_ITS ---
Brief Operative Note Date of Service: 07/01/23 Pre-op diagnosis: Right shoulder pain, chronic intractable pain Post-op diagnosis: same Procedure: Temporary right suprascapular nerve stimulator placement Implants: [employer] temporary PNS system Surgeon: Tony Hobbs MD Anesthesia: local Was an Auto Body Builder Apprentice used for this Procedure?: No Estimated blood loss (mL): 1 Pathology: none sent Condition: stable Disposition: same day
--- NOTE | 2023-07-01 12:48 | W.PM.OPN ---
Operative Note Operative Note Date of Service: 07/01/23 Narrative: Peripheral Nerve Stimulation Temporary Lead Placement, Fluoroscopy-Guided, Suprascapular Nerve, Right ? After the risks, benefits and alternatives were discussed with the patient and informed consent was obtained, patient was placed in the sitting position and padded to foster comfort. Appropriate skin and bony landmarks were identified using fluoroscopy, including the left suprascapular notch. The skin overlying the needle entry site was prepped and draped in sterile fashion. After identifying and marking the intended target along the course of the suprascapular nerve, the skin around the planned entry point and the subcutaneous tissues were injected with local anesthetic. An introducer needle and stimulating probe were assembled, inserted and advanced along the intended course of the suprascapular nerve, taking care to maintain the proper depth of insertion as the introducer was advanced under fluoroscopy guidance. Bony contact was achieved with the scapula and maintained throughout. The introducer needle was delivered to a location in proximity to the nerve. Multiple stimulation parameters were used to deliver stimulation to the suprascapular nerve in concert with stimulating at multiple positions around the nerve. Nerve target acquisition was confirmed noting generation of sensory and mild motor effects (paresthesia, muscle tension, etc) in the shoulder and proximal arm; corresponding to the distribution of the suprascapular nerve. Various electrical parameter combinations were tested, and the lead location was adjusted (physically relocated under image guidance) until the patient indicated shoulder paresthesia and tension overlapping the distribution of the patient?s typical region of pain. The stimulating probe was removed from the introducer and a percutaneous lead was guided through the needle and delivered to a location in similar proximity to the nerve. Final location was verified with electrical stimulation and documented. The introducer needle was removed, and the exposed end of the percutaneous lead was attached to an external stimulator unit. Various electrical parameter combinations were again tested until the patient indicated paresthesia and muscle tension overlapping the distribution of the patient?s typical region of pain. After confirming that lead impedance was in the normal range, the external unit was detached, the needle was removed, and the lead was anchored at the skin. The needle entry site was occluded with dermabond. The lead was threaded into the connector block and electrical continuity and desired patient response was confirmed. The connector block was attached to the external stimulator unit. The site was covered with a sterile occlusive dressing.? A final image was taken to document final placement. The patient was observed for stability of vital signs and comfort.
[2023-07-01 13:21] VITALS: BP 150/95; PULSE 61; RESP 16; TEMP 37.1; O2SAT 99
== END 2023-07-01 13:28 | disposition home or self-care (01) ==
PROVIDERS: PCP Internal Medicine; Visit Provider Internal Medicine
PROC: (CPT 64555; principal; 2023-07-01 12:00)
DX: M25.511 Pain in right shoulder (principal); G89.29 Other chronic pain; F41.8 Other specified anxiety disorders; M96.1 Postlaminectomy syndrome, not elsewhere classified; Z98.890 Other specified postprocedural states; Z79.899 Other long term (current) drug therapy; F17.210 Nicotine dependence, cigarettes, uncomplicated
CPT/HCPCS: 64555; C1778

== ENCOUNTER → 2023-07-01 09:43 | Outpatient (BNV) | payer OTHER, SELFPAY | PROVIDERS: PCP Internal Medicine; Visit Provider Internal Medicine | DX: M25.511 Pain in right shoulder (principal) | CPT/HCPCS: 64555 ==

== ENCOUNTER 2023-08-01 11:34 | Emergency (ER) | payer OTHER, SELFPAY ==
--- NOTE | 2023-08-01 11:37 | ED.SKABFB ---
HPI - Skin/Abscess/Foreign Bdy General Chief complaint: Skin/Abscess/Foreign Body Stated complaint: cyst Time Seen by Provider: 08/01/23 11:43 Source: patient, RN notes reviewed and old records reviewed Mode of arrival: ambulatory History of Present Illness HPI narrative: 67-year-old male with a past medical history degenerative disc disease, presenting to the ED complaining of painful abscess to right buttock x 2 weeks. Admits area is scabbed over. Denies attempting drainage at home, currently draining, fever/chills, injury, insect bite complaint: abscess/boil Related Data Home Medications Medication Instructions Recorded Confirmed bupropion HCl 150 mg 24 hr tablet, 150 mg PO DAILY depressive disorder 03/24/22 04/20/23 extended release sildenafil 25 mg tablet (Viagra) 25 mg PO DAILY PRN 05/07/22 04/20/23 tamsulosin 0.4 mg capsule 0.4 mg PO DAILY 08/07/22 04/20/23 Previous Rx's Medication Instructions Recorded tizanidine 4 mg tablet 4 mg PO BID PRN muscle spasticity 04/15/22 30 days #60 tabs gabapentin 300 mg capsule 300 mg PO TID for pain 30 days #90 06/03/22 caps tramadol 50 mg tablet 50 mg PO Q6H PRN pain #20 tabs 06/26/22 cephalexin 500 mg capsule 500 mg PO QID 7 days #28 caps 08/01/23 doxycycline hyclate 100 mg tablet 100 mg PO BID 7 days #14 tabs 08/01/23 Allergies Allergy/AdvReac Type Severity Reaction Status Date / Time No Known Allergies Allergy Verified 04/20/23 09:11 [No Known Allergies*] Review of Systems Review of Systems: Constitutional: No Fever, No Chills ENT/Mouth: No Ear Pain, No Nasal Congestion, No Swallowing Difficulty Cardiovascular: No Chest Pain, No SOB Respiratory: No Cough, No Sputum Gastrointestinal: No Nausea, No Vomiting, No Diarrhea, No Constipation, No Abdominal pain Musculoskeletal: No joint pain, No Myalgias, No Joint Swelling Skin: + Skin Lesions, No rash Neuro: No Weakness Yes all other systems are reviewed and are negative Constitutional: Constitutional: Reports as per [facility] Past Medical History Attestation statement: The following information was validated with the patient. 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 Vital Signs: Vital Signs: Last Vital Signs Temp 98.4 F 08/01/23 11:39 Pulse 77 08/01/23 11:39 Resp 15 08/01/23 11:39 BP 111/77 08/01/23 11:39 Pulse Ox 100 08/01/23 11:39 O2 Del Method Room Air 08/01/23 11:39 BMI result Body Mass Index 21.8 Const: General: cooperative, healthy appearing and no acute distress Orientation/consciousness: patient oriented x3 Limitations: no limitations HEENT: Head: Yes normal to inspection and Yes atraumatic Ears: hearing grossly normal bilaterally General nose exam: Normal external nose present Face and sinus: Yes normal facial exam Eyes: General: appearance normal, both eyes and all related structures EOM: EOMs intact bilaterally Neck: Neck: Yes normal visual inspection and Yes no meningeal signs Resp: Effort & Inspection: normal respiratory effort and no respiratory distress Cardio: Rate: regular rate Skin: Other: +indurated abscess to R buttock with surrounding erythema and central scabbing. No fluctuance. +warm, no drainage. No perianal or perirectal involvement Rashes: no rashes Neuro: General: patient oriented x3, tone normal and no meningeal signs Cranial nerves: Yes CN's II-XII intact bilaterally Gait exam (Neuro): Normal gait present Extrem: General: Yes normal to inspection Medical Decision Making Medical Decision Making MDM Narrative: 67-year-old male with a past medical history degenerative disc disease, presenting to the ED complaining of painful abscess to right buttock x 2 weeks. On exam vital signs stable, NAD, nontoxic appearing with physical exam as above with indurated cellulitic abscess to right buttock without perianal/perirectal involvement. No evidence of Chi's gangrene. Area not amendable to I & D at this time Plan: P.o. antibiotics, warm compresses, close PCP follow-up Please refer to course for remaining clinical decision making, interpretation of labs/imaging results, and discussions with consultants and/or family members. Results discussed with patient including worrisome signs and symptoms and strict return precautions, and when to return to the emergency department. They verbalized understanding and feel safe for discharge at this time. Differential Diagnosis Differential Diagnoses: The differential diagnosis associated with the presentation includes As above External Record Review External record reviewed: Inpatient record, Office record, Outpatient record, Prior outpatient labs, Prior outpatient radiology, Primary care record and Outside ED record Tests considered The following testing was considered but not selected: As above Prescription Management I considered prescription management with: Pain Medication and Antibiotic Discharge Plan Discharge Clinical Impression: Abscess Patient Disposition: Home, Self-Care Instructions: Abscess (ED) Additional Instructions: please take antibiotics as prescribed Apply warm compresses daily Take Tylenol /Motrin for pain Have close follow-up in 3 days for re-evaluation If area worsens, becomes more red/larger, is open and draining return to the ED Prescriptions: New cephalexin 500 mg capsule 500 mg PO QID 7 Days Qty: 28 0RF doxycycline hyclate 100 mg tablet 100 mg PO BID 7 Days Qty: 14 0RF No Action gabapentin 300 mg capsule 300 mg PO TID 30 Days Qty: 90 2RF sildenafil [Viagra] 25 mg tablet 25 mg PO DAILY PRN bupropion HCl 150 mg tablet extended release 24 hr 150 mg PO DAILY tizanidine 4 mg tablet 4 mg PO BID PRN (Reason: muscle spasticity) 30 Days Qty: 60 0RF tramadol 50 mg tablet 50 mg PO Q6H PRN (Reason: pain) Qty: 20 0RF tamsulosin 0.4 mg capsule 0.4 mg PO DAILY Referrals: Physician,Unknown J [Physician] - 3 days
[2023-08-01 11:39] VITALS: BP 111/77; PULSE 77; RESP 15; TEMP 36.9; O2SAT 100; BMI 21.8
== END 2023-08-01 12:00 | disposition home or self-care (01) ==
PROVIDERS: Emergency Provider Emergency Medicine; PCP Internal Medicine
DX: L02.31 Cutaneous abscess of buttock (principal); F17.210 Nicotine dependence, cigarettes, uncomplicated; Z79.899 Other long term (current) drug therapy
CPT/HCPCS: 99282; 99283

== ENCOUNTER 2023-08-02 04:28 | Emergency (ER) | payer OTHER, SELFPAY ==
[2023-08-02 04:36] VITALS: BP 124/62; PULSE 62; RESP 20; TEMP 36.8; O2SAT 100
== END 2023-08-02 05:21 | disposition left against medical advice (07) ==
PROVIDERS: Emergency Provider Emergency Medicine
DX: R10.9 Unspecified abdominal pain (principal)
CPT/HCPCS: 99281

== ENCOUNTER 2023-08-04 21:42 | Emergency (ER) | payer OTHER, SELFPAY ==
[2023-08-04 21:51] VITALS: BP 144/78; PULSE 60; RESP 20; TEMP 36.6; O2SAT 98; BMI 22.0
[2023-08-04 23:53] VITALS: BP 152/86; PULSE 51; RESP 16; TEMP 36.6; O2SAT 97
== END 2023-08-05 00:15 | disposition left against medical advice (07) ==
PROVIDERS: Emergency Provider Emergency Medicine; PCP Internal Medicine
DX: L02.91 Cutaneous abscess, unspecified (principal)
CPT/HCPCS: 99281; 99284

== ENCOUNTER 2023-08-07 08:27 | Outpatient (AMB) | payer OTHER, SELFPAY ==
[2023-08-07 08:33] VITALS: BP 144/71; PULSE 58; BMI 21.3
--- NOTE | 2023-08-07 08:33 | MHC.OFFVIS ---
Intake Vital Signs 08/07/23 08:33 Height 5 ft 5 in Weight 128 lb BMI 21.3 BP 144/71 H Blood Pressure Location Rt brachial Position Sitting Pulse 58 Intake Visit Reasons: Lt buttock abscess Intake Note: Patient here for Lt buttock abscess. Has been present for 2-3 wks. C/o redness, oozing pus, bleeding, pain. Almost done with Cephalexin and Doxy course. Inbound Customer Service Agent Required: No Accompanied by: Self / Same As Patient Allergies No Known Allergies [No Known Allergies*] Allergy (Verified 08/07/23 08:35) Medication List - Last Reconciled 08/07/23 by Fredi Pagan MD bupropion HCl 150 mg PO DAILY cephalexin 500 mg PO QID 7 days doxycycline hyclate 100 mg PO BID 7 days gabapentin 300 mg PO TID 30 days sildenafil (Viagra) 25 mg PO DAILY PRN tamsulosin 0.4 mg PO DAILY HPI HPI Comments History of Present Illness Details Patient presents with a left buttock abscess. He has had this approximately 3 weeks time. He has been seen by various walk-in clinics in [facility] and now presents here for the fin of therapy. He complains of intense pain which has progressed. He has no other constitutional symptoms. Chart was reviewed patient evaluated [facility] Medical History Left groin pain Right knee injury Depression Anxiety Left inguinal hernia No known health problems Surgical History (Updated 08/07/23 @ 09:21 by Fredi Pagan MD) Abscess History of left inguinal hernia repair (~01/10/22) History of spinal surgery History of shoulder surgery Social History (Updated 08/07/23 @ 08:37 by JUAN Mckeon) Alcohol intake: never Patient Tobacco Use Status: Current everyday Tobacco user Tobacco use type: Cigarette Cigarettes Per Day: 10 Substance Use Type: Marijuana Current occupational status: unemployed 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 Office Procedures I&D Drain Details: Risks, benefits, alternatives of incision and drainage of left buttock abscess reviewed with the patient included but not limited to bleeding, infection, recurrence, numbness, pain, scarring the patient wished to proceed p.o. questions were answered. After appropriate positioning, patient underwent 1% lidocaine and Betadine prep were large approximately 5 x 3 cm left buttock abscess was uneventfully incise and drain. Copious amounts of purulent material retrieved. Loculations were broken down. Superficial necrotic skin and soft tissue necrotic tissue was debrided. Was irrigated, secured hemostasis, packed, sterile dressing applied. Patient tolerated procedure well 14421-[id number] of Skin Abscess, complex All charges added?: Procedure code (CPT) selection complete Assessment & Plan Assessment & Plan (1) Abscess: Comment: Patient is to continue antibiotics provided for him, local instructions, will be seen few days time for dressing and packing change, and analgesics be provided. After several attempts to computer EMail analgesics script, this has been unsuccessful for unclear reasons. Patient will be contacted Code(s): L02.91 - Cutaneous abscess, unspecified Orders: Orders AMB Incision & Drainage Today L02.91 - Cutaneous abscess, unspecified Medications: New hydrocodone-acetaminophen 5-325 mg Partial Fill upon patient request. 1 tab PO Q4-6H PRN 30 tabs 0RF pain hydrocodone-acetaminophen 5-325 mg Partial Fill upon patient request. 1 tab PO Q4-6H PRN 30 tabs 0RF pain hydrocodone-acetaminophen 5-325 mg Partial Fill upon patient request. 1 tab PO Q4-6H PRN 30 tabs 0RF pain Coding Level of Care Code New Pt Level 4 (25749) Diagnoses Abscess L02.91 CPT Codes I&D Drain - Drain 2: 56157-[id number] of Skin Abscess, complex ([id number])
== END 2023-08-07 09:21 | disposition home or self-care (01) ==
PROVIDERS: PCP Internal Medicine; Referring Provider Registered Nurse; Visit Provider Surgery
DX: L02.91 Cutaneous abscess, unspecified (principal)
CPT/HCPCS: 10061; 99204

== ENCOUNTER 2023-08-07 08:27 | Outpatient (REF) | payer OTHER, SELFPAY | END 2023-08-07 08:28 | disposition home or self-care (01) | LOC: HO.LAB 08:27 | PROVIDERS: PCP Internal Medicine; Referring Provider Registered Nurse; Visit Provider Surgery | DX: L02.91 Cutaneous abscess, unspecified (principal) | CPT/HCPCS: 10061; 87070; 87077; 87186; 87205 ==

== ENCOUNTER 2023-08-10 09:38 | Outpatient (AMB) | payer OTHER, SELFPAY ==
[2023-08-10 09:49] VITALS: BP 136/76; PULSE 67; BMI 21.6
--- NOTE | 2023-08-10 09:49 | MHC.OFFVIS ---
Intake Vital Signs 08/10/23 09:49 Height 5 ft 5 in Weight 130 lb BMI 21.6 BP 136/76 Blood Pressure Location Rt brachial Position Sitting Pulse 67 Intake Visit Reasons: Lt buttock abscess post I&D Intake Note: Patient here to f/u Lt buttock abscess. Reports site healing well. Finished abx Cephalexin, Doxy course. Healthcare Or Medical Required: No Accompanied by: Self / Same As Patient Allergies No Known Allergies [No Known Allergies*] Allergy (Verified 08/10/23 09:50) HPI HPI Comments History of Present Illness Details Patient presents for follow-up. Status post I&D of buttock abscess. Patient has marked improvement of his symptoms. He is completing his antibiotic course. He is undergoing local wound instructions and care. [facility] Medical History (Updated 08/07/23 @ 09:18 by Fredi Pagan MD) Left groin pain Right knee injury Depression Anxiety Left inguinal hernia No known health problems Surgical History (Updated 08/07/23 @ 09:21 by Fredi Pagan MD) Abscess History of left inguinal hernia repair (~01/10/22) History of spinal surgery History of shoulder surgery Social History (Updated 08/07/23 @ 08:37 by JUAN Mckeon) Alcohol intake: never Patient Tobacco Use Status: Current everyday Tobacco user Tobacco use type: Cigarette Cigarettes Per Day: 10 Substance Use Type: Marijuana Current occupational status: unemployed 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 Assessment & Plan Assessment & Plan (1) Abscess: Comment: Patient is to continue antibiotics provided for him, local instructions, will be seen few days time for dressing and packing change, and analgesics be provided. After several attempts to computer EMail analgesics script, this has been unsuccessful for unclear reasons. Patient will be contacted Code(s): L02.91 - Cutaneous abscess, unspecified Plan Patient has completed antibiotic course, continue local wound therapy, and will see me in approximate 1 and half weeks or p.r.n. Coding Level of Care Code Global (31626) Diagnoses Abscess L02.91
== END 2023-08-10 09:52 | disposition home or self-care (01) ==
PROVIDERS: PCP Internal Medicine; Visit Provider Surgery
DX: L02.91 Cutaneous abscess, unspecified (principal)
CPT/HCPCS: 99024

== ENCOUNTER → 2023-08-10 09:38 | Outpatient (BNVA) | payer OTHER, SELFPAY | PROVIDERS: PCP Internal Medicine; Visit Provider Surgery ==

== ENCOUNTER 2023-08-21 08:50 | Outpatient (AMB) | payer OTHER, SELFPAY ==
[2023-08-21 09:03] VITALS: BP 141/74; PULSE 68; BMI 22.1
--- NOTE | 2023-08-21 09:03 | MHC.OFFVIS ---
Intake Vital Signs 08/21/23 09:03 Height 5 ft 5 in Weight 133 lb BMI 22.1 BP 141/74 H Blood Pressure Location Rt brachial Position Sitting Pulse 68 Intake Visit Reasons: Lt buttock abscess post I&D, 1-1/2 wk follow up Intake Note: Patient here to f/u Lt buttock abscess. Reports healing well. Finished Cephalexin course. Patient also reports RIH. C/o constant pain for 3-4 days. Reports abd pain after eating, constipation, loss of appetite, lt testicle pain. Was seen at the ER a month ago. Had pelvis US in April. 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 He he has been marked improvement of his symptoms. Patient also presents for evaluation of chronic left inguinal pain status post open inguinal hernia repair approximately 2 years ago. He has had incapacitating pain of left groin which has limited his activities and sexual pursuits. 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 Right groin negative. Genitalia within normal limits. Left inguinal hernia scar healed. Very tender to palpation. No obvious recurrence demonstrated. No evidence of any infection. Back/Spine/Pelvis Other: Buttock wound is healing uneventfully granulating well. Assessment & Plan Assessment & Plan (1) Abscess: Comment: Patient is to continue antibiotics provided for him, local instructions, will be seen few days time for dressing and packing change, and analgesics be provided. After several attempts to computer EMail analgesics script, this has been unsuccessful for unclear reasons. Patient will be contacted Code(s): L02.91 - Cutaneous abscess, unspecified (2) Left groin pain: Code(s): R10.32 - Left lower quadrant pain Plan Patient has been given local instructions regarding his resolving buttock abscess. Discussed the inguinal hernia pain, most likely related to scar tissue with possible nerve entrapment. To surgically remove this would be enormous undertaking with the risks outweighing the benefits. I recommend that he be evaluated by the chronic Pain Clinic and direct further therapy based on their recommendations. Arrangements were made for this. All questions were answered. Coding Level of Care Code Est Pt Level 4 (32046) Global (70913) Diagnoses Abscess L02.91 Left groin pain R10.32
== END 2023-08-21 09:17 | disposition home or self-care (01) ==
PROVIDERS: PCP Internal Medicine; Visit Provider Surgery
DX: L02.91 Cutaneous abscess, unspecified (principal); R10.32 Left lower quadrant pain
CPT/HCPCS: 99024; 99214

== ENCOUNTER → 2023-08-21 08:50 | Outpatient (BNVA) | payer OTHER, SELFPAY | PROVIDERS: PCP Internal Medicine; Visit Provider Surgery | DX: L02.31 Cutaneous abscess of buttock (principal); R10.32 Left lower quadrant pain; Z98.890 Other specified postprocedural states | CPT/HCPCS: 99212 ==

== ENCOUNTER → 2023-08-31 08:02 | Outpatient (BNVA) | payer OTHER, SELFPAY | PROVIDERS: PCP Internal Medicine; Visit Provider Internal Medicine | DX: M25.561 Pain in right knee (principal) | CPT/HCPCS: 99211 ==

== ENCOUNTER 2023-10-12 09:10 | Outpatient (AMB) | payer OTHER, SELFPAY ==
--- NOTE | 2023-10-12 09:18 | MHC.OFFVIS ---
Intake Vital Signs 10/12/23 09:19 Height 5 ft 5 in Weight 133 lb BMI 22.1 BP 126/74 Blood Pressure Location Lt brachial Position Sitting Respiration 12 Pulse 98 Pulse Source Pulse Oximeter Pulse Oximetry (%) 98 Oxygen Delivery Method Room Air Intake Visit Reasons: (L) Lower Quadrant/Lower Abdominal Pain Allergies No Known Allergies [No Known Allergies*] Allergy (Verified 10/12/23 09:20) Medication List - Last Reconciled 10/12/23 by Madison Carrillo LPN bupropion HCl 150 mg PO DAILY gabapentin 300 mg PO TID 30 days sildenafil (Viagra) 25 mg PO DAILY PRN tamsulosin 0.4 mg PO DAILY HPI (L) Lower Quadrant/Lower Abdominal Pain HPI Details 68-year-old male who presents today to the office for abdominal left low quadrant pain. He reports pain in the inguinal region following an inguinal hernia repair in the past. 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 He is unable to perform exercises and pushups. He inquired about nerve ablation therapy as a treatment option. His knee and shoulder pain are stable. He is still unable to sleep on the side. He states that the nerve stimulator for the shoulder provided significant relief initially, but then it started worsening in recent weeks. Past Procedures: 07/01/23: Peripheral Nerve Stimulation Temporary Lead Placement, Fluoroscopy-Guided, Suprascapular Nerve, Right: 50% relief. 09/19/22: Sprint Device Implant for right knee ? >80% relief, ongoing 6 months out. 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 Alert and oriented. Mood and affect appropriate. Follows and participates in conversation appropriately. Respiratory effort is unlabored. Able to transition from sit to stand unassisted. Ambulates with bilaterally normal heel strike and toe off. There is tenderness to superficial palpation overlying the left inguinal region. Results Reviewed Results Reviewed: No imaging is available for review. Assessment & Plan Assessment & Plan (1) Ilioinguinal neuralgia of left side: Code(s): G57.92 - Unspecified mononeuropathy of left lower limb Plan We discussed temporary nerve stimulator vs. DRG stimulator vs. diagnostic/therapeutic injections as a possible treatment option. The patient will discuss these treatment options with his surgeon, and he will inform us if he wants to proceed. He was particularly curious about radiofrequency ablation. I informed him that we do not routinely perform radiofrequency ablation of the ilioinguinal nerve. While pulsed radiofrequency ablation is an option but unfortunately this is not covered by insurance. Scribed for Dr. Hobbs by Nahum Farley, bilingual medical receptionist, on 10/12/2023. I, Dr. Hobbs, have personally reviewed and agree with the information entered by the scribe. Coding Level of Care Code Est Pt Level 3 (43536) Diagnoses Ilioinguinal neuralgia of left side G57.92
[2023-10-12 09:19] VITALS: BP 126/74; PULSE 98; RESP 12; O2SAT 98; BMI 22.1
== END 2023-10-12 09:34 | disposition home or self-care (01) ==
PROVIDERS: PCP Internal Medicine; Visit Provider Internal Medicine
DX: G57.92 Unspecified mononeuropathy of left lower limb (principal)
CPT/HCPCS: 99213

== ENCOUNTER → 2023-10-12 09:10 | Outpatient (BNVA) | payer OTHER, SELFPAY | PROVIDERS: PCP Internal Medicine; Visit Provider Internal Medicine | DX: G57.92 Unspecified mononeuropathy of left lower limb (principal) | CPT/HCPCS: 99212 ==

== ENCOUNTER 2023-12-08 09:50 | Outpatient (REF) | payer OTHER, SELFPAY ==
--- NOTE | ~2023-12-08 | XR_ITS ---
EXAMINATION: XR SHOULDER, LEFT CLINICAL INFORMATION: Injury 3 weeks ago with continued shoulder pain COMPARISON: Left shoulder 05/20/2023 TECHNIQUE: AP external rotation, Grashey, scapular Y, and axillary views of the left shoulder. FINDINGS: The bones and soft tissues are unremarkable aside from some unchanged mild degenerative changes at the AC joint. No fracture. Glenohumeral and acromioclavicular alignment is anatomic with normal glenohumeral joint space. No abnormal soft tissue calcifications. XR/XR shoulder LT min 2V IMPRESSION: Mild stable degenerative changes at the AC joint. No acute finding
== END 2023-12-08 09:51 | disposition home or self-care (01) ==
LOC: HO.HHCX 09:50
PROVIDERS: Visit Provider Emergency Medicine
DX: M25.512 Pain in left shoulder (principal); G89.11 Acute pain due to trauma
CPT/HCPCS: 73030

== ENCOUNTER 2024-06-18 01:33 | Emergency (ER) | payer OTHER, SELFPAY ==
--- NOTE | ~2024-06-18 | XR_ITS ---
EXAMINATION: XR SHOULDER, LEFT CLINICAL INFORMATION: Injury. Pain. COMPARISON: None available. TECHNIQUE: 3 views of the left shoulder. FINDINGS: The bones and soft tissues are normal. No fracture. Glenohumeral and acromioclavicular alignment is anatomic with normal joint space. No abnormal soft tissue calcifications. XR/XR shoulder LT min 2V IMPRESSION: No significant abnormality identified.
[2024-06-18 01:36] VITALS: BP 157/86; PULSE 78; RESP 16; TEMP 36.2; O2SAT 97; BMI 21.9
--- NOTE | 2024-06-18 02:26 | ED.EXTPRO ---
HPI - Extremity Problem General Chief complaint: Extremity Injury, Upper Stated complaint: left shoulder pain from a fall Time Seen by Provider: 06/18/24 02:24 Source: patient Mode of arrival: ambulatory Limitations: no limitations History of Present Illness ED Provider: bere RUELAS Narrative: Patient while coming down stairs tripped and fell last 3 steps hitting his left shoulder to the wall no loss of consciousness no significant head injury complaining of pain in the left shoulder Related Data Home Medications ?Medication ?Instructions ?Recorded ?Confirmed bupropion HCl 150 mg 24 hr tablet, 150 mg PO DAILY depressive disorder 03/24/22 10/12/23 extended release sildenafil 25 mg tablet (Viagra) 25 mg PO DAILY PRN 05/07/22 10/12/23 tamsulosin 0.4 mg capsule 0.4 mg PO DAILY 08/07/22 10/12/23 Previous Rx's ?Medication ?Instructions ?Recorded gabapentin 300 mg capsule 300 mg PO TID for pain 30 days #90 06/03/22 caps ibuprofen 600 mg tablet 600 mg PO Q6H PRN fever or pain 06/18/24 #30 tabs Allergies Allergy/AdvReac Type Severity Reaction Status Date / Time No Known Allergies Allergy Verified 06/18/24 01:39 [No Known Allergies*] Review of Systems Review of Systems: Yes all other systems are reviewed and are negative PMFSH Past Medical History Medical History Right knee injury Depression Anxiety Left inguinal hernia No known health problems Surgical History Left groin pain Hx of surgical procedure (08/07/23) Abscess History of left inguinal hernia repair (~01/10/22) History of spinal surgery History of shoulder surgery Social History Social History Alcohol intake: never Patient Tobacco Use Status: Current everyday Tobacco user Tobacco use type: Cigarette Cigarettes Per Day: 10 Smoked in Last 30 Days: No Use of substances other than those prescribed or required for medical reasons: No Substance Use Type: Marijuana Advance Directives: No Advance Directives Information Provided: No Current occupational status: unemployed 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 Oriented X3. No acute distress. Eyes: PERRLA, No Nystagmus ENT: Pharynx normal. Oral Mucosa moist ATNC Neck: Normal inspection. Neck supple. No midline tenderness CVS: Normal heart rate and rhythm. Pulses normal. Respiratory: No respiratory distress. Equal air entry bilateral, Abdomen: Soft and nontender. Bowel sounds are present, no mass palpable, no CVA tenderness Skin: Skin warm and dry. Normal skin color. Normal skin turgor. Extremities: No lower extremity edema. No calf tenderness left shoulder diffuse tenderness no deformity Neuro: Oriented X 3. No motor deficit. Medications Administered Discontinued Medications Generic Name Dose Route Start Last Admin Trade Name Freq PRN Reason Stop Dose Admin Ibuprofen 600 mg 06/18/24 02:45 06/18/24 03:31 Ibuprofen 600 Mg Tablet PO 06/18/24 02:46 600 mg ONCE ONE Administration Medical Decision Making Medical Decision Making [facility] Narrative: Patient with left shoulder contusion will prescribe analgesics Differential Diagnosis Differential Diagnoses: The differential diagnosis associated with the presentation includes Contusion/rotator cuff tendinitis/fracture Independent Interpretation I performed an independent interpretation of an: Plain X-Ray Interpretation: Normal left shoulder Xray Radiology Impression Discussion of test interpretation with radiology: I have reviewed the radiologist's reading. Discharge Plan Discharge Clinical Impression: Contusion of left shoulder Patient Disposition: Home, Self-Care Instructions: Contusion in Adults (ED), Shoulder Pain (ED) Additional Instructions: Wear sling for support Your x-ray negative for fracture Ibuprofen for pain Prescriptions: New ibuprofen 600 mg tablet 600 mg PO Q6H PRN (Reason: fever or pain) Qty: 30 0RF No Action gabapentin 300 mg capsule 300 mg PO TID 30 Days Qty: 90 2RF sildenafil [Viagra] 25 mg tablet 25 mg PO DAILY PRN bupropion HCl 150 mg tablet extended release 24 hr 150 mg PO DAILY tamsulosin 0.4 mg capsule 0.4 mg PO DAILY Interventions: ED Discharge Assessment Last Done: 06/18/24 03:31 Discharge Date/Time: 06/18/24 03:31 Print Language: [place]ican
[2024-06-18 03:31] VITALS: BP 157/86; PULSE 78; RESP 16; TEMP 36.2; O2SAT 97
[2024-06-18] MEDS: Ibuprofen 600 MG TABLET PO (03:31)
== END 2024-06-18 03:31 | disposition home or self-care (01) ==
PROVIDERS: Emergency Provider Internal Medicine; PCP Internal Medicine
DX: S40.012A Contusion of left shoulder, initial encounter (principal); W10.8XXA Fall (on) (from) other stairs and steps, initial encounter; Y93.89 Activity, other specified; Y92.9 Unspecified place or not applicable; Y99.9 Unspecified external cause status
CPT/HCPCS: 73030; 99283; 99284

== ENCOUNTER 2024-07-10 22:06 | Emergency (ER) | payer OTHER, SELFPAY ==
--- NOTE | ~2024-07-10 | XR_ITS ---
EXAMINATION: XR WRIST, RIGHT CLINICAL INFORMATION: Fall/pain COMPARISON: None available. TECHNIQUE: PA, lateral, and oblique views of the right wrist. FINDINGS: Severe degenerative changes of the radiocarpal joint and triscaphe the joint with subchondral cystic changes. Deformity of the scaphoid bone with surgical pin likely sequela of prior trauma. No definite fracture is visualized, however given osteopenia, an occult fracture cannot entirely be excluded. XR/XR wrist RT 2V IMPRESSION: * Deformity of the scaphoid bone with surgical pin likely sequela of prior trauma. No definite fracture is visualized, however given osteopenia, an occult fracture cannot entirely be excluded. * Severe degenerative changes of the radiocarpal joint and triscaphe the joint.
[2024-07-10 22:10] VITALS: BP 105/77; PULSE 63; RESP 18; TEMP 36.3; O2SAT 100; BMI 21.3
== END 2024-07-11 01:48 | disposition left against medical advice (07) ==
LOC: HO.ED 07-11 01:42
PROVIDERS: Emergency Provider Emergency Medicine; PCP Internal Medicine
DX: M25.531 Pain in right wrist (principal)
CPT/HCPCS: 73100; 99281

== ENCOUNTER 2024-07-18 02:09 | Emergency (ER) | payer OTHER, SELFPAY ==
[2024-07-18 02:15] VITALS: BP 143/77; PULSE 70; RESP 18; TEMP 36.2; O2SAT 100; BMI 22.0
[2024-07-18 03:22] VITALS: BP 136/79; PULSE 55; RESP 18; TEMP 36.7; O2SAT 96
--- NOTE | 2024-07-18 03:24 | ED_ITS ---
HPI - Extremity Problem General Chief complaint: Extremity Injury, Upper Stated complaint: rt hand pain Time Seen by Provider: 07/18/24 03:20 Source: patient Mode of arrival: ambulatory Limitations: no limitations History of Present Illness ED Provider: bere RUELAS Narrative: Patient with left shoulder pain after fall on 06/26 was seen here that time x- ray was negative showing arthritic changes complaining of pain especially when he abduct his left arm went to his PCP who advised MRI patient came here to get MRI. No recent fall patient also complaining of pain in the right hand of status post surgery about 20 years ago Related Data Home Medications ?Medication ?Instructions ?Recorded ?Confirmed bupropion HCl 150 mg 24 hr tablet, 150 mg PO DAILY depressive disorder 03/24/22 10/12/23 extended release sildenafil 25 mg tablet (Viagra) 25 mg PO DAILY PRN 05/07/22 10/12/23 tamsulosin 0.4 mg capsule 0.4 mg PO DAILY 08/07/22 10/12/23 Previous Rx's ?Medication ?Instructions ?Recorded gabapentin 300 mg capsule 300 mg PO TID for pain 30 days #90 06/03/22 caps ibuprofen 600 mg tablet 600 mg PO Q6H PRN fever or pain 06/18/24 #30 tabs Allergies Allergy/AdvReac Type Severity Reaction Status Date / Time No Known Allergies Allergy Verified 07/18/24 02:17 [No Known Allergies*] Review of Systems 2 Review of Systems: Yes all other systems are reviewed and are negative PMFSH Past Medical History Medical History Right knee injury Depression Anxiety Left inguinal hernia No known health problems Surgical History Left groin pain Hx of surgical procedure (08/07/23) Abscess History of left inguinal hernia repair (~01/10/22) History of spinal surgery History of shoulder surgery Social History Social History Alcohol intake: never Patient Tobacco Use Status: Current everyday Tobacco user Tobacco use type: Cigarette Cigarettes Per Day: 10 Substance Use Type: Marijuana Advance Directives: No Advance Directives Information Provided: Yes Do you have a plan to hurt others: No Plan Current occupational status: unemployed 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 Diffuse tenderness continue normal painful to abduct neurovascular intact Hand/finger images: 1. Diffuse tenderness good range of movement Medical Decision Making Medical Decision Making [facility] Narrative: Patient is clinically left rotator cuff tendinitis advised to follow with specialist orthopedic for further management patient isn't sling at this time also has chronic pain right hand status post scaphoid surgery previous x-ray done on 07/10 showed no fracture Discharge Plan Discharge Clinical Impression: Tendinitis of left rotator cuff Patient Disposition: Home, Self-Care Instructions: Rotator Cuff Tendinitis (ED) Additional Instructions: Follow with Orthopedics for further management Prescriptions: No Action gabapentin 300 mg capsule 300 mg PO TID 30 Days Qty: 90 2RF ibuprofen 600 mg tablet 600 mg PO Q6H PRN (Reason: fever or pain) Qty: 30 0RF sildenafil [Viagra] 25 mg tablet 25 mg PO DAILY PRN bupropion HCl 150 mg tablet extended release 24 hr 150 mg PO DAILY tamsulosin 0.4 mg capsule 0.4 mg PO DAILY Referrals: Naomie Tejeda MD [Physician] - 1 week Print Language: Jordanian
[2024-07-18 04:09] VITALS: BP 0/0; PULSE 0; RESP 0; TEMP -17.7; TEMP 0; O2SAT 0
== END 2024-07-18 03:50 | disposition home or self-care (01) ==
PROVIDERS: Emergency Provider Internal Medicine
DX: M75.82 Other shoulder lesions, left shoulder (principal); F17.210 Nicotine dependence, cigarettes, uncomplicated; F12.90 Cannabis use, unspecified, uncomplicated
CPT/HCPCS: 99282; 99283

== ENCOUNTER 2024-08-13 09:20 | Outpatient (REF) | payer OTHER, SELFPAY ==
--- NOTE | ~2024-08-13 | MR_ITS ---
EXAMINATION: MR SHOULDER WITHOUT CONTRAST, LEFT CLINICAL INFORMATION: Left shoulder pain following a fall. COMPARISON: Left shoulder radiographs dated 06/18/2024. TECHNIQUE: MRI of the shoulder without contrast was performed on a high-field scanner. FINDINGS: ROTATOR CUFF: Mild supraspinatus and mild infraspinatus tendinosis. Irregular bursal surface partial tearing of the infraspinatus tendon with a possible small focal extension of the tear to the articular surface which could indicate a full-thickness component. Overall tearing measures up to 1.8 x 1.6 cm (AP x ML). No muscle atrophy or fatty infiltration. BICEPS: Trace fluid within the proximal long head biceps tendon sheath which could represent normal variation versus minimal tenosynovitis. No tendon tear. CORACOACROMIAL ARCH: The undersurface of the acromion is curved with small subacromial spurs. Moderate acromioclavicular osteoarthritis. Small amount of fluid within subacromial subdeltoid bursa, likely related to the full-thickness component of the rotator cuff tendon tear. LABRUM/CAPSULE: No labral tear. Intact inferior joint capsule. GLENOHUMERAL JOINT/MARROW: Minimal articular cartilage signal heterogeneity with tiny marginal osteophytes. No acute osseous injury. MR/MR shoulder LT wo con IMPRESSION: 1. Mild supraspinatus and infraspinatus tendinosis. Irregular bursal surface partial tearing of the infraspinatus tendon with a possible small full-thickness component to the tear. Overall tearing measures 1.8 x 1.6 cm (AP x ML). 2. Trace fluid within the proximal long head biceps tendon sheath which could represent normal variation versus minimal tenosynovitis. No tendon tear. 3. Moderate acromioclavicular osteoarthritis with small subacromial spurs. 4. Minimal glenohumeral arthrosis. Electronically signed by: Marek Finnegan MD 08/15/2024 01:20 PM EDT RP
== END 2024-08-13 09:21 | disposition home or self-care (01) ==
LOC: HO.MRI 09:20
PROVIDERS: PCP Internal Medicine; Visit Provider Internal Medicine
DX: S40.012A Contusion of left shoulder, initial encounter (principal)
CPT/HCPCS: 73221

== ENCOUNTER 2024-08-23 10:39 | Outpatient (AMB) | payer OTHER, SELFPAY ==
[2024-08-23 10:48] VITALS: BMI 22.0
--- NOTE | 2024-08-23 10:48 | MHC.OFFVIS ---
Vital Signs 08/23/24 10:48 Height 5 ft 5 in Weight 132 lb BMI 22.0 Intake Visit Reasons: Left shoulder pain Intake Note: Celestino is a 68 year old male who presents with complaints of progressively worsening left shoulder pain and stiffness. The patient describes his pain as sharp in nature. He did undergo right shoulder surgery several years ago. That surgery was performed by another surgeon. He reports minimal discomfort in his right shoulder. He has done physical therapy exercises which aggravated his pain. He has also had multiple cortisone injections in the past. The most recent injection gave him minimal relief. Has tried Tylenol, anti-inflammatory medicines and gabapentin which gave him minimal relief. The patient reports difficulty lifting his left hand above shoulder height. He has failed the last 6 weeks of conservative treatment. His left shoulder pain is now interfering with his activities of daily living and his ability to sleep well through the night. Allergies No Known Allergies [No Known Allergies*] Allergy (Verified 08/23/24 10:48) Medication List - Last Reconciled 08/23/24 by Griffin Salguero MD bupropion HCl XL 150 mg PO DAILY gabapentin 300 mg PO TID 30 days ibuprofen 600 mg PO Q6H PRN sildenafil (Viagra) 25 mg PO DAILY PRN tamsulosin 0.4 mg PO DAILY PFSH Medical History Right knee injury Depression Anxiety Left inguinal hernia No known health problems Surgical History Left groin pain Hx of surgical procedure (08/07/23) Abscess History of left inguinal hernia repair (~01/10/22) History of spinal surgery History of shoulder surgery Social History Alcohol intake: never Patient Tobacco Use Status: Current everyday Tobacco user Tobacco use type: Cigarette Cigarettes Per Day: 10 Substance Use Type: Marijuana Current occupational status: unemployed 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 Vital Signs: BMI result Body Mass Index 22.0 Const Other: Well-nourished well-developed very friendly male awake alert and oriented x3 in no acute distress Extrem Other: Bilateral upper extremity examination shows good capillary refill, no skin lesions noted, normal sensation light touch Left shoulder examination shows decreased active and passive range of motion when compared to his right shoulder, 4+ out of 5 strength with supraspinatus testing, positive impingement signs, tenderness over his acromioclavicular joint, no instability Results Reviewed Results Reviewed: MRI of the patient's left shoulder show severe acromioclavicular joint narrowing, a type 3 acromion, signal change within the supraspinatus tendon most likely due to adhesive capsulitis Assessment & Plan Assessment & Plan (1) Left shoulder pain: Code(s): M25.512 - Pain in left shoulder Plan Mr. Patel Evangelista presents with progressively worsening left shoulder pain and stiffness due to impingement syndrome, acromioclavicular joint arthritis and adhesive capsulitis. I had a lengthy discussion with the patient regarding the treatment options. At this point he has failed continued non operative treatments. The risks and benefits of left shoulder surgery were discussed at length with the patient. The patient wishes to proceed with surgery. Surgery will most likely involve left shoulder diagnostic arthroscopy with distal clavicle excision, acromioplasty, capsular release and manipulation under anesthesia. The patient will be scheduled for next available date. He will continue with his range of motion exercises in the meantime. He will follow-up as instructed. I spent 21 minutes in reviewing the patient's records and imaging studies, seeing the patient and documenting in the medical record. Coding Level of Care Code Est Pt Level 3 (21526) Complex EM visit Add On G2211 Diagnoses Left shoulder pain M25.512
== END 2024-08-23 11:19 | disposition home or self-care (01) ==
PROVIDERS: Visit Provider Orthopaedic Surgery
DX: M75.42 Impingement syndrome of left shoulder (principal); M19.012 Primary osteoarthritis, left shoulder; M75.02 Adhesive capsulitis of left shoulder
CPT/HCPCS: 99213; G2211

== ENCOUNTER → 2024-08-23 10:39 | Outpatient (BNVA) | payer OTHER, SELFPAY | PROVIDERS: Visit Provider Orthopaedic Surgery | DX: M25.512 Pain in left shoulder (principal); M25.612 Stiffness of left shoulder, not elsewhere classified | CPT/HCPCS: 99212 ==

== ENCOUNTER 2024-09-01 15:32 | Emergency (ER) | payer OTHER, SELFPAY ==
--- NOTE | ~2024-09-01 | CT_ITS ---
EXAMINATION: CT HEAD WITHOUT CONTRAST CLINICAL INFORMATION: Dizziness. COMPARISON: MRI brain 04/23/2022 TECHNIQUE: Contiguous axial imaging was performed from the skull base to vertex without intravenous administration of contrast. This CT examination was performed using dose optimization techniques as appropriate, variously including the following: *Automated exposure control *Adjustment of mA and/or kV according to patient size (this includes techniques or standardized protocols for targeted exams where dose is matched to indication/reason for exam; i.e. extremities or head) *Use of iterative reconstruction technique DLP: 673 mGy-cm FINDINGS: There is no acute intra-axial, extra-axial bleed, masses or midline shift. There is no acute infarction in evolution. There is no edema. Valdovinos to white matter differentiation is maintained normal. The lateral ventricles are slightly asymmetrical but without enlargement. Bone windows reveal no calvarial abnormality. There is no scalp soft tissue abnormality. Bilateral paranasal sinuses and mastoid air cells are well-aerated. CT/CT head/brain wo IV con IMPRESSION: No acute intracranial process seen Electronically signed by: Terry Stewart MD 09/01/2024 05:05 PM EDT
[2024-09-01 16:31] VITALS: BP 157/87; PULSE 75; RESP 18; TEMP 36.7; O2SAT 97; BMI 22.5
--- NOTE | 2024-09-01 16:31 | ED_ITS ---
HPI - Dizziness General Chief Complaint: Dizziness Stated Complaint: dizziness Related Data Home Medications ?Medication ?Instructions ?Recorded ?Confirmed bupropion HCl 150 mg 24 hr tablet, 150 mg PO DAILY depressive disorder 03/24/22 08/23/24 extended release sildenafil 25 mg tablet (Viagra) 25 mg PO DAILY PRN 05/07/22 08/23/24 tamsulosin 0.4 mg capsule 0.4 mg PO DAILY 08/07/22 08/23/24 Previous Rx's ?Medication ?Instructions ?Recorded gabapentin 300 mg capsule 300 mg PO TID for pain 30 days #90 06/03/22 caps ibuprofen 600 mg tablet 600 mg PO Q6H PRN fever or pain 06/18/24 #30 tabs Allergies Allergy/AdvReac Type Severity Reaction Status Date / Time No Known Allergies Allergy Verified 09/01/24 16:32 [No Known Allergies*] PMFSH Past Medical History Medical History Right knee injury Depression Anxiety Left inguinal hernia No known health problems Surgical History Left groin pain Hx of surgical procedure (08/07/23) Abscess History of left inguinal hernia repair (~01/10/22) History of spinal surgery History of shoulder surgery Social History Social History Alcohol intake: never Patient Tobacco Use Status: Current everyday Tobacco user Tobacco use type: Cigarette Cigarettes Per Day: 10 Substance Use Type: Marijuana Advance Directives: No Advance Directives Information Provided: No Do you have a plan to hurt others: No Plan Current occupational status: unemployed 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 Full HPI, ROS, assessment and treatment plan per primary provider in the Main ED. 68 yo male presents to the ER for evaluation of constant dizziness for the last 7-10 days. reports a fall w/ head strike in May but never evaluated, had dizziness after that but resolved. reports difficulty walking and blurred vision and pain in both eyes, waxes and wanes. nausea with decreased PO intake. feels like the room is spinning. worse when laying down and laying on his side. denies weakness, numbness, tingling. steady gait into triage. Plan: CT head, labs, EKG Reevaluation(s) Reevaluation #1: patient upset about long wait and is leaving the ER. he will follow up with his doctor. steady gait on exit. Medical Decision Making Lab Data 09/01/24 16:59 09/01/24 16:59 Labs: Lab Results 09/01/24 09/01/24 Range/Units 16:59 17:20 WBC 9.9 (4.8-10.8) X10*3/uL RBC 4.87 (4.60-5.80) X10*6/uL Hgb 15.0 (14.0-18.0) g/dl Hct 42.6 (42.0-52.0) % MCV 87.5 (80.0-98.0) fL MCH 30.8 (27.0-33.0) pg MCHC 35.2 (31.0-36.0) g/dl RDW 13.3 (11.0-16.0) % Plt Count 257 (160-400) X10*3/uL MPV 10.5 (9.4-12.4) fL Immature Gran % (Auto) 0.2 (0.0-0.4) % Neut % (Auto) 67.1 (45-73) % Lymph % (Auto) 27.0 (20-40) % [place] % (Auto) 4.6 (2-11) % Eos % (Auto) 0.7 (0-4) % Baso % (Auto) 0.4 (0-2) % Lymph # (Auto) 2.7 (1.2-4.9) X10*3/uL [place] # (Auto) 0.5 (0.1-1.2) X10*3/uL Eos # (Auto) 0.1 (0.0-0.4) X10*3/uL Baso # (Auto) 0.0 (0.0-0.2) X10*3/uL Abs Immat Gran (auto) 0.02 (0.00-0.03) X10*3/uL Absolute Neuts (auto) 6.6 (2.0-8.3) x10*3/uL Absolute Nucleated RBC 0.000 (0.0-0.012) X10*3/uL Nucleated RBC % (auto) 0.0 (0.0-0.2) /100WBC Sodium 140 (135-145) mmol/L Potassium 4.0 (3.3-5.1) mmol/L Chloride 107 (96-108) mmol/L Carbon Dioxide 23 (22-29) mmol/L Anion Gap 14 (12-20) BUN 16 (9-16) mg/dL Creatinine 1.16 (0.5-1.4) mg/dL Estim Creat Clear Calc 51.3 Estimated GFR > 60 Random Glucose 84 (60-115) mg/dL Calcium 9.8 (8.4-10.2) mg/dL Magnesium 2.1 (1.6-2.6) mg/dL Total Bilirubin 0.5 (0.0-1.0) mg/dL Direct Bilirubin 0.2 (0.0-0.5) mg/dL AST 23 (5-37) U/L ALT 28 (0-40) U/L Alkaline Phosphatase 80 (39-117) U/L Troponin I High Sens < 2.7 (<3.5-35.0) ng/L Total Protein 7.8 (6.5-8.0) g/dL Albumin 4.5 (3.5-5.0) g/dL Urine Color Yellow Urine Appearance Clear Urine pH 6.0 (5.0-9.0) Ur Specific [place] 1.010 (1.005-1.025) Urine Protein Negative (Neg-Trace) mg/dL Urine Glucose (UA) Negative (Negative) mg/dL Urine Ketones Negative (Negative) mg/dL Urine Blood Negative (Negative) Urine Nitrite Negative (Negative) Ur Leukocyte Esterase Negative (Negative) Discharge Plan Discharge Clinical Impression: Dizziness Patient Disposition: Left W/O Completing Treatment Prescriptions: No Action gabapentin 300 mg capsule 300 mg PO TID 30 Days Qty: 90 2RF ibuprofen 600 mg tablet 600 mg PO Q6H PRN (Reason: fever or pain) Qty: 30 0RF sildenafil [Viagra] 25 mg tablet 25 mg PO DAILY PRN bupropion HCl 150 mg tablet extended release 24 hr 150 mg PO DAILY tamsulosin 0.4 mg capsule 0.4 mg PO DAILY Discharge Date/Time: 09/01/24 19:24
--- NOTE | 2024-09-01 16:35 | ECG_ITS ---
Test Reason : dizziness Blood Pressure : / mmHG Vent. Rate : 067 BPM Atrial Rate : 067 BPM P-R Int : 130 ms QRS Dur : 080 ms QT Int : 378 ms P-R-T Axes : 053 016 043 degrees QTc Int : 399 ms Normal sinus rhythm Normal ECG When compared with ECG of 07-FEB-2019 12:31, No significant change was found Referred By: Hodan Magdaleno Electronically Signed By:ERENDIRA MONTERO
--- NOTE | 2024-09-01 17:03 | MHC.EDTECH ---
Patient unable to provide urine sample at this time. Provided cup with instructions on obtaining a clean specimen.
--- NOTE | 2024-09-01 17:04 | MHC.EDTECH ---
KEN perfomred at [address] Morocho.
[2024-09-01 17:05] LABS: Basophils Percent Auto 0.4 % (0-2); Eosinophils Absolute Auto 0.1 X10*3/uL (0.0-0.4); Eosinophils Percent Auto 0.7 % (0-4); Hematocrit 42.6 % (42.0-52.0); Imm Gran Abs Auto 0.02 X10*3/uL (0.00-0.03); Imm Gran Pct Auto 0.2 % (0.0-0.4); Lymphocytes Absolute Auto 2.7 X10*3/uL (1.2-4.9); MANUAL DIFF FLAG NO; Mean Corpuscular HGB Conc 35.2 g/dl (31.0-36.0); Mean Corpuscular Hemoglobin 30.8 pg (27.0-33.0); Mean Corpuscular Volume 87.5 fL (80.0-98.0); Mean Platelet Volume 10.5 fL (9.4-12.4); Monocytes Absolute Auto 0.5 X10*3/uL (0.1-1.2); Monocytes Percent Auto 4.6 % (2-11); Neutrophils Absolute Auto 6.6 x10*3/uL (2.0-8.3); Neutrophils Percent Auto 67.1 % (45-73); Platelet Count 257 X10*3/uL (160-400); Red Blood Count 4.87 X10*6/uL (4.60-5.80); Red Cell Distribution Width 13.3 % (11.0-16.0); White Blood Count 9.9 X10*3/uL (4.8-10.8)
[2024-09-01 17:24] LABS: Alanine Aminotransferase 28 U/L (0-40); Albumin Level 4.5 g/dL (3.5-5.0); Alkaline Phosphatase 80 U/L (39-117); Anion Gap 14 (12-20); Aspartate Amino Transferase 23 U/L (5-37); Bilirubin Direct 0.2 mg/dL (0.0-0.5); Bilirubin Total 0.5 mg/dL (0.0-1.0); Blood Urea Nitrogen 16 mg/dL (9-16); Calcium 9.8 mg/dL (8.4-10.2); Carbon Dioxide 23 mmol/L (22-29); Chloride 107 mmol/L (96-108); Creatinine Clr Calc Pharmacy 51.3; Estimated Glomerular Filt Rate > 60; Glucose Random 84 mg/dL (60-115); Magnesium 2.1 mg/dL (1.6-2.6); Sodium 140 mmol/L (135-145); Total Protein 7.8 g/dL (6.5-8.0)
[2024-09-01 17:35] LABS: Appearance Urine Clear; Color Urine Yellow; Glucose Urine UA Negative (Negative); Leukocyte Esterase Urine Negative (Negative); Nitrite Urine Negative (Negative); Urine Blood Negative (Negative); Urine Ketones Negative (Negative); Urine Protein Negative (Neg-Trace)
[2024-09-01 17:37] LABS: Troponin-I High Sensitivity < 2.7 ng/L (<3.5-35.0)
== END 2024-09-01 19:24 | disposition left against medical advice (07) ==
PROVIDERS: Physician Assistant; Emergency Provider Emergency Medicine; PCP Internal Medicine
DX: R42 Dizziness and giddiness (principal); H53.8 Other visual disturbances; R11.0 Nausea; R26.2 Difficulty in walking, not elsewhere classified; F17.210 Nicotine dependence, cigarettes, uncomplicated; Z79.899 Other long term (current) drug therapy
CPT/HCPCS: 36415; 70450; 80048; 80076; 81003; 83735; 84484; 85025; 93005; 99283; 99284

== ENCOUNTER 2024-10-07 07:24 | Day surgery (SDC) | payer OTHER, SELFPAY ==
[2024-09-22 11:37] VITALS: BMI 23.3
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
[2024-10-07] VITALS (8 sets, daily range): BP systolic 91–127; BP diastolic 59–73; PULSE 57–75; RESP 12–16; TEMP 36.1–36.6; O2SAT 96–98; BMI 22.5
[2024-10-07] MEDS: Lactated Ringers 1,000 ML 100 ML IVCONT (08:49)
--- NOTE | 2024-10-07 12:27 | P.BOP_ITS ---
Brief Operative Note Date of Service: 10/07/24 Pre-op diagnosis: Left shoulder impingement syndrome, left shoulder acromioclavicular joint arthritis, left shoulder adhesive capsulitis Post-op diagnosis: same Procedure: Left shoulder diagnostic arthroscopy with left shoulder arthroscopic distal clavicle excision, left shoulder arthroscopic acromioplasty, left shoulder arthroscopic anterior capsular release, left shoulder manipulation under anesthesia Implants: None Surgeon: Griffin Salguero MD Anesthesia: GETA and regional Was an Safety Patrol Officer used for this Procedure?: No Estimated blood loss (mL): 20 Pathology: none sent Condition: stable Disposition: PACU
--- NOTE | 2024-10-07 12:28 | P.OP_ITS ---
Operative Note Operative Note Date of Service: 10/07/24 Narrative: After the patient was identified as Celestino Evangelista and his left shoulder was initialed by myself the patient was brought to the holding area where a left shoulder interscalene regional block was performed by the anesthesiologist in routine fashion. The patient was then brought to the operating room where general anesthesia was induced by the anesthesiologist in routine fashion. The patient was given 2 g of IV Ancef preoperatively for infection prophylaxis. Examination under anesthesia of the patient's left shoulder showed decreased range of motion when compared to the right shoulder. The patient's left shoul bhavna had forward flexion to 130 degrees compared to 170 degrees, external rotation to 30 degrees compared to 60 degrees, and internal rotation to 40 degrees compared to 50 degrees. The patient was gently positioned in the beach chair position with all bony prominences well padded. The patient's left shoulder region and upper extremity were prepped and draped in sterile fashion. A formal time-out was completed. A #11 scalpel blade was used to make a posterior portal 2 cm inferior and 1 cm medial to the posterolateral corner of the acromion. Blunt trocar technique was used to enter the glenohumeral joint in routine fashion. An anterior portal was made just lateral to the coracoid process after proper positioning was confirmed using a spinal needle. Diagnostic arthroscopy showed minimal degenerative changes of the glenoid and humeral head articular surfaces. There was no evidence of rotator cuff tearing. There was no evidence of injury to the biceps tendon or its insertion onto the glenoid. There was inflammation of the anterior joint capsule consistent with adhesive capsulitis. The ArthroCare Wand was then used to perform an anterior capsular release between the inferior border of the biceps tendon and the superior border of the subscapularis tendon. The arthroscope was then placed from the posterior portal into the subacromial space. A lateral portal was made 2 fingerbreadths lateral to the anterior lateral corner of the acromion. The ArthroCare Wand was used to ablate soft tissues along the undersurface of the acromion as well as to excise the coracoacromial ligament. There was a sharp spur along the undersurface of the acromion which was removed using the hooded bur. The arthroscope was then placed into the lateral portal and the acromioplasty was completed with the bur in the posterior portal using the posterior aspect of the acromion as a cutting block. The ArthroCare Wand was then brought in through the anterior portal and was used to ablate soft tissues along the acromioclavicular joint and distal clavicle. The posterior and superior ligamentous structures were left intact. A distal clavicle excision of 8 mm was performed using the hooded bur. Any remaining bursal tissue was removed using the arthroscopic shaver. The subacromial space was irrigated and then drained. All arthroscopic instruments were removed. A gentle manipulation under anesthesia was then performed. Full passive range of motion was easily attained. The 3 portals were closed with 3-0 nylon interrupted suture. The subacromial space was injected with Marcaine. Dry sterile dressing was placed over all incisions. The patient's left upper extremity was placed into a sling. The patient was awoken and extubated in the operating room. The patient was transferred to the recovery room in stable condition.
[2024-10-07] MEDS: cefTRIAXone sodium 1 GM VIAL IVPUSH (13:02)
== END 2024-10-07 14:28 | disposition home or self-care (01) ==
PROVIDERS: PCP Internal Medicine; Visit Provider Orthopaedic Surgery
PROC: (CPT 29805; principal; 2024-10-07 10:00)
DX: M75.42 Impingement syndrome of left shoulder (principal); M75.02 Adhesive capsulitis of left shoulder; M19.012 Primary osteoarthritis, left shoulder; M25.512 Pain in left shoulder; E78.5 Hyperlipidemia, unspecified; F32.A Depression, unspecified; F41.9 Anxiety disorder, unspecified; G47.33 Obstructive sleep apnea (adult) (pediatric); Z79.1 Long term (current) use of non-steroidal anti-inflammatories (NSAID); Z79.899 Other long term (current) drug therapy; Z98.890 Other specified postprocedural states; Z99.89 Dependence on other enabling machines and devices; F17.210 Nicotine dependence, cigarettes, uncomplicated; Z56.0 Unemployment, unspecified
CPT/HCPCS: 29824; 29825; 29826; J0131; J0665; J0690; J0696; J1100; J2003; J2250; J2405; J2704; J2795; J3010

== ENCOUNTER → 2024-10-07 07:24 | Outpatient (BNV) | payer OTHER, SELFPAY | PROVIDERS: PCP Internal Medicine; Visit Provider Orthopaedic Surgery | DX: M75.42 Impingement syndrome of left shoulder (principal); M19.012 Primary osteoarthritis, left shoulder; M75.02 Adhesive capsulitis of left shoulder | CPT/HCPCS: 29824; 29826 ==

== ENCOUNTER 2024-10-20 07:18 | Outpatient (REF) | payer OTHER, SELFPAY ==
--- NOTE | ~2024-10-20 | MR_ITS ---
EXAMINATION: MR BRAIN WITHOUT CONTRAST CLINICAL INFORMATION: Headache for 3 months. Dizziness. COMPARISON: CT head from 09/01/2024. Brain MRI from 04/23/2022. TECHNIQUE: MRI of the brain was obtained using routine sequences without contrast. FINDINGS: No focal restricted diffusion is demonstrated to suggest acute or subacute cerebral ischemia. No evidence of acute or chronic hemorrhagic products on heme-sensitive imaging. Chronic region of encephalomalacia in the high left parietal lobe. Chronic lacunar infarcts of the cerebellum. Scattered periventricular and deep white matter T2 FLAIR hyperintensities consistent with mild underlying microangiopathy. The ventricles are normal in morphology and size. No abnormal mass effect. No midline shift. Normal appearance of the pituitary gland. Normal positioning of the cerebellar tonsils. Normal arterial and venous vascular flow voids are present. Normal, homogeneous marrow signal. Mild mucosal thickening of the paranasal sinuses. No signal abnormalities within the mastoids. MR/MR head/brain wo con IMPRESSION: 1. No acute intracranial abnormalities. 2. Chronic region of encephalomalacia in the high left parietal lobe. Chronic lacunar infarcts of the cerebellum. Mild underlying microangiopathy. Electronically signed by: Denny Hayward DO 11/09/2024 07:42 AM JULES
== END 2024-10-20 07:19 | disposition home or self-care (01) ==
LOC: HO.MRI 07:18
PROVIDERS: PCP Internal Medicine; Visit Provider Internal Medicine
DX: R42 Dizziness and giddiness (principal); M25.812 Other specified joint disorders, left shoulder
CPT/HCPCS: 70551; 99212

== ENCOUNTER 2024-10-20 12:26 | Outpatient (AMB) | payer OTHER, SELFPAY ==
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
== END 2024-10-20 13:22 | disposition home or self-care (01) ==
PROVIDERS: PCP Internal Medicine; Visit Provider Physician Assistant
DX: M25.812 Other specified joint disorders, left shoulder (principal)
CPT/HCPCS: 99024

== ENCOUNTER 2024-11-21 08:52 | Outpatient (REF) | payer OTHER, SELFPAY ==
[2024-11-21 14:03] LABS: CT PCR NOT DETECTED (Not Detect.); NG PCR NOT DETECTED (Not Detect.)
[2024-11-24 12:58] LABS: RPR Rapid Plasma Reagin NON-REACTIVE (NON-REACTIVE)
[2024-11-24 14:29] LABS: HBS Num1 58.58 mIU/mL (0-7.99); HBc Num1 7.16 S/CO (0.00-0.79); HBsAGNum1 0.38 S/CO (0.00-0.99); HIV AB/AG Nonreactive (Nonreactive); HIV Num 1 0.06 S/CO (0.00-0.99); Hepatitis B Surface Antigen Negative (Negative); ~HepC Num1 0.35 S/CO (0.00-0.79); ~Hepatitis B Surface Antibody REACTIVE (Nonreactive); ~Hepatitis C Antibody Nonreactive (Nonreactive)
[2024-11-25 08:28] LABS: HBc Num2 6.84 S/CO; HBc Num3 6.95 S/CO; Hepatitis B Core Antibody Reactive (Nonreactive)
== END 2024-11-21 08:53 | disposition home or self-care (01) ==
LOC: HO.HHCL 08:52
PROVIDERS: Nurse Practitioner Primary Care; Visit Provider Emergency Medicine
DX: R21 Rash and other nonspecific skin eruption (principal)
CPT/HCPCS: 36415; 86592; 86704; 86706; 86803; 87340; 87389; 87491; 87591

== ENCOUNTER 2024-11-24 06:15 | Emergency (ER) | payer OTHER, SELFPAY ==
[2024-11-24 06:21] VITALS: BP 140/71; PULSE 78; RESP 18; TEMP 37; O2SAT 100; BMI 21.6
[2024-11-24] MEDS: Loratadine 10 MG TABLET PO (07:13)
[2024-11-24] MEDS: predniSONE 20 MG TABLET 40 MG PO (07:13)
[2024-11-24] MEDS: diphenhydrAMINE HCL 25 MG CAPSULE PO (07:13)
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
[2024-11-24 07:33] LABS: MANUAL DIFF FLAG NO
[2024-11-24 07:44] LABS: Basophils Percent Auto 0.4 % (0-2); Eosinophils Absolute Auto 0.3 X10*3/uL (0.0-0.4); Hematocrit 47.2 % (42.0-52.0); Hemoglobin 16.2 g/dl (14.0-18.0); Imm Gran Abs Auto 0.04 X10*3/uL (0.00-0.03); Imm Gran Pct Auto 0.4 % (0.0-0.4); Lymphocytes Absolute Auto 2.7 X10*3/uL (1.2-4.9); Lymphocytes Percent Auto 25.6 % (20-40); Mean Corpuscular HGB Conc 34.3 g/dl (31.0-36.0); Mean Corpuscular Hemoglobin 30.7 pg (27.0-33.0); Mean Corpuscular Volume 89.4 fL (80.0-98.0); Monocytes Absolute Auto 0.7 X10*3/uL (0.1-1.2); Monocytes Percent Auto 6.9 % (2-11); Neutrophils Absolute Auto 6.6 x10*3/uL (2.0-8.3); Neutrophils Percent Auto 63.7 % (45-73); Platelet Count 266 X10*3/uL (160-400); Red Blood Count 5.28 X10*6/uL (4.60-5.80); Red Cell Distribution Width 13.4 % (11.0-16.0); White Blood Count 10.4 X10*3/uL (4.8-10.8)
[2024-11-24 07:48] LABS: Alanine Aminotransferase 65 U/L (0-40); Albumin Level 4.3 g/dL (3.5-5.0); Alkaline Phosphatase 80 U/L (39-117); Anion Gap 11 (12-20); Aspartate Amino Transferase 36 U/L (5-37); Bilirubin Direct 0.2 mg/dL (0.0-0.5); Bilirubin Total 0.5 mg/dL (0.0-1.0); Blood Urea Nitrogen 13 mg/dL (9-16); Calcium 9.5 mg/dL (8.4-10.2); Carbon Dioxide 27 mmol/L (22-29); Chloride 105 mmol/L (96-108); Creatinine Clr Calc Pharmacy 54.8; Estimated Glomerular Filt Rate > 60; Glucose Random 97 mg/dL (60-115); Lipase 29 U/L (8-78); Magnesium 2.2 mg/dL (1.6-2.6); Potassium 5.2 mmol/L (3.3-5.1); Sodium 138 mmol/L (135-145); Total Protein 7.3 g/dL (6.5-8.0)
[2024-11-24 08:28] VITALS: BP 140/71; PULSE 78; RESP 18; TEMP 37; O2SAT 100
== END 2024-11-24 08:29 | disposition home or self-care (01) ==
PROVIDERS: Physician Assistant; Emergency Provider Emergency Medicine
DX: L29.9 Pruritus, unspecified (principal); E78.5 Hyperlipidemia, unspecified; F17.210 Nicotine dependence, cigarettes, uncomplicated; F12.90 Cannabis use, unspecified, uncomplicated; Z79.899 Other long term (current) drug therapy
CPT/HCPCS: 36415; 80048; 80076; 83690; 83735; 85025; 99283; 99284

== ENCOUNTER 2024-12-02 08:41 | Outpatient (RCR) | payer OTHER, SELFPAY ==
--- NOTE | 2024-11-11 10:55 | MHC.PT.EP ---
[facility] [place] Office [place] Office [place] Office [address] Luda Bingham [address] [phone] F: [phone] F: [phone] F: [phone] F: [phone] Physical Therapy Plan of Care Date of Evaluation: 11/11/24 Date of Surgery: 10/07/24 Diagnosis: LT Shoulder , DOS: 10/07/24 (Left shoulder diagnostic arthroscopy with left shoulder arthroscopic distal clavicle excision, left shoulder arthroscopic acromioplasty, left shoulder arthroscopic anterior capsular release, left shoulder manipulation under anesthesia) W DR TIAN Assessment: 69 YO MALE REF TO PT S/P LEFT SH ARTHROSCOPIC ACROMIOPLASTY/ DCE/ MANIPULATION/ ANT CAPSULAR RELEASE ON 10/07/24. HE IS REF TO PT FOR ROM AND PERISCAP /RC STABILIZATION. HE NOTES HE HAS BEEN USING HIS LEFT UE MORE W ADLs AND HIS PAIN IS TERRIBLE NOW. 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 HE HAS A H/O SIMILAR PROCEDURE ON Rt SH YRS AGO. OBJECTIVE FINDINGS: DECR POSTURAL AWARENESS, LIMITED ROM Lt SH, STRENGTH DEFICITS Lt SH COMPLEX-> SIGNIF CHALLENGE W ACTIV POST RC/ SCAP RETR, AND ELEVATED PAIN IN HIS Lt SH/ DELT REGION. FUNCTIONAL LIMITATIONS INCLUDE ADLs REQ ANGUS UEs OR REACHING W Lt UE- HE NOTES LIMITATIONS W EVERYTHING . JUSTUS IS A GOOD PT CANDIDATE TO ADDRESS THE ABOVE FINDINGS AND GUIDE HIM IN HIS POST OP COURSE. Frequency and Duration: The patient will be seen 2 x WK x 6 WKS Short Term Goals: DECR Lt SH PAIN TO 2-3/10 Pt INDEP SELF-CORRECT POSTURE INITIATE HEP -> Pt DEMON EFFICIENT ACTIV POST RC/ SCAP MM GRAD INCR PROM/AAROM-> AROM Lt SH COMPLEX Intermediate Goals: Pt INDEP W HEP AND SELF -SX MGMT TECHN Pt RESUME REG ADLS EVIDENT W IMPROVED SPADI SCORE ( AT EVAL, 130/130) Pt INCR Lt SH / RC/ SCAP STRENGTH BY AT LEAST 1 GRADE Treatment Plan: Modalities to reduce pain, spasms and effusion. Manual therapy to restore motion and function. Therapeutic exercise to improve strength and flexibility. Neuromuscular re-education for posture and balance. Therapeutic activities to return to functional activities of daily living. Electronically signed by: WOO FORD PT Please sign and return to therapist. Thank you for your referral.
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
== END 2025-03-10 12:04 | disposition home or self-care (01) ==
LOC: HO.PT 08:41
PROVIDERS: PCP Internal Medicine; Visit Provider Physician Assistant
DX: M25.812 Other specified joint disorders, left shoulder (principal)
CPT/HCPCS: 97110; 97162; 97535

== ENCOUNTER 2024-12-05 09:40 | Outpatient (AMB) | payer OTHER, SELFPAY ==
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
[2024-12-05 10:00] VITALS: BMI 21.6
== END 2024-12-05 10:12 | disposition home or self-care (01) ==
PROVIDERS: Visit Provider Orthopaedic Surgery
DX: M25.512 Pain in left shoulder (principal)
CPT/HCPCS: 99024

== ENCOUNTER → 2024-12-05 09:40 | Outpatient (BNVA) | payer OTHER, SELFPAY | PROVIDERS: Visit Provider Orthopaedic Surgery | DX: Z47.89 Encounter for other orthopedic aftercare (principal); Z98.890 Other specified postprocedural states; Z79.891 Long term (current) use of opiate analgesic | CPT/HCPCS: 99212 ==

== ENCOUNTER 2025-02-07 07:58 | Outpatient (AMB) | payer OTHER, SELFPAY ==
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
--- OUTSIDE RECORDS SUMMARY | 2025-02-07 08:13 | XMS_ITS | Encounter Summary ---
Author Organization [facility] Address [address] [place] [address] Care Team Providers Care Childcare Provider Name Role Phone Jo Up IS TECHNICIAN Primary Care Provider [phone] Alexandra Ralph MD Primary Care Provide r Reason for Visit * Reason Onset Date Comments Letter for Jury Duty 11/10/2022 I called re garding a letter request to be excused from jury duty. He needs to provide the badge number, and the date of service. I reached a voicemail, and left a msg asking him to return my call at ext [phone]. I sent a letter asking him to contact the forms department. Encounter Details Date Type Department Care Team ([facility] Contact Info) Description 11/10/2022 Telephone [facility] [address] [place] [address] Gemini Lovell [place] Letter for Jury Duty (I called regarding a letter request to be excused from jury duty. He needs to provide the badge number, and the date of service. I reached a voicemail, and left a msg asking him to return my call at ext [phone]. I sent a letter asking him to contact the forms department.) Social History Tobacco Use Types Packs/Day Years Used Date Smoking Tobacco: Never Assessed Sex and Gender Information Value Date Recorded Sex Assigned at Male 09/29/2022 10:31 AM EDT Legal Sex Male 10:31 AM EDT Gender Identity Male 09/29/2022 10:31 AM EDT Sexual Orientation Choose not to disclose 2021 10:31 AM EDT documented as of this encounter Plan of Treatment Upcoming Encounters Date Type Department Care Team (Late st Contact Info) Description 03/30/2025 10:45 AM EDT Office Visit [facility] [address] [place] [address] Alexandra Ralph MD [address] [place] [address] documented as of this encounter Visit Diagnoses Not on filedocumented in this encounter Care Teams Childcare Provider Relationship Specialty Start Date End Date [place] [facility] [address] [place] [address] [phone] PCP - General Family Medicine 10/20/22 04/15/23 Alexandra Ralph MD [address] [place] [address] [phone] PCP - General Internal Medicine 04/16/23 documented as of this encounter
--- OUTSIDE RECORDS SUMMARY | 2025-02-07 08:13 | XMS_ITS | Encounter Summary ---
Author Organization [facility] Address [address] [facility] [address] [place] [address] Care Team Providers Care Crowning Inspector Name Role Phone Alexandra Ralph MD Primary Care Provide r Reason for Visit * Reason Onset Date Comments May Recall 01/17/2025 Encounter Details Date Type Department Care Team ([facility] st Contact Info) Description 01/17/2025 Telephone [facility] [address] [place] [address] Alexandra Ralph MD [address] [place] [address] May Recall Social History Tobacco Use Types Packs/Day Years [...] encounter Miscellaneous Notes * Telephone Encounter - Gabbie Kenney MA - 01/17/2025 10:13 AM EST TC- Patient to schedule an appt (March Recall) with [facility] to call back to sche appt.Mailed recall letter. documented in this encounter Plan of Treatment Upcoming Encounters Date Type Department Care Team (Late st Contact Info) Description 03/30/2025 10:45 AM EDT Office Visit [facility] [address] [place] [address] Alexandra Ralph MD [address] [place] [address] documented as of this encounter Visit Diagnoses Not on filedocumented in this encounter Additional Health Concerns Assessment Noted Time PHQ-9 Depression Total Score: 6 06/28/20 24 9:58 AM EDT documented as of this encounter Care Teams Crowning Inspector Relationship Specialty Start Date End Date Alexandra Ralph MD [address] [place] [id number] PCP - General Internal Medicine 04/16/23 documented as of this encounter
--- OUTSIDE RECORDS SUMMARY | 2025-02-07 08:13 | XMS_ITS | Encounter Summary ---
Author Organization [employer] Address [address] [facility] [address] 7[address] [place] [address] Care Team Providers Care Collection Systems Technician Name Role Phone Alexandra Ralph MD Primary Care Provide r Reason for Visit * Reason Onset Date Comments Chart Prep 01/09/2025 Encounter Details Date Type Department Care Team (Late st Contact Info) Description 01/09/2025 Telephone [facility] MEDICINE [address] [place] [address] Gabbie Kenney MA Chart Prep Social History Tobacco Use Types Packs/Day Years [...] Telephone Encounter - Gabbie Kenney MA - 01/09/2025 4:15 PM EST Chart Prep Labs: done Images: done Vaccines due: yes Referrals: pending appt Screenings: colonoscopy Overdue care gaps: UP TO DATE documented in this encounter Plan of Treatment Upcoming Encounters Date Type Department Care Team (Late st Contact Info) Description 03/30/2025 10:45 AM EDT Office Visit [facility] MEDICINE [address] [place] [address] Alexandra Ralph MD [address] [place] [address] documented as of this encounter Visit Diagnoses Not on filedocumented in this encounter Additional Health Concerns Assessment Noted Time PHQ-9 Depression Total Score: 6 06/28/20 24 9:58 AM EDT documented as of this encounter Care Teams Collection Systems Technician Relationship Specialty Start Date End Date Alexandra Ralph MD [address] [place] [address] PCP - General Internal Medicine 04/16/23 documented as of this encounter
--- OUTSIDE RECORDS SUMMARY | 2025-02-07 08:13 | XMS_ITS | Encounter Summary ---
Author Organization [employer] Address [address] [facility] 7 [place] [address] Care Team Providers Care Algebra Tutor Name Role Phone [facility] Primary Care Provider [phone] Alexandra Ralph MD Primary Care Provide r Reason for Visit * Reason Onset Date Comments Appointment Request 11/25/2022 Outgoing tila l to patient. No answer. Patient needs an appt with provider. Thanks. eg Jury Duty Letter 11/25/2022 The pt requeste d a letter, asking to be excused from Jury Duty. He needs to provide a badge number, and the date of when he is expected to appear in court. I reached a voicemail, and left a msg asking him to return my call at ext [phone]. Encounter Details Date Type Department Care Team ([facility] Contact Info) Description 11/25/[address] [facility] MEDICINE [address] [place], [place] [phone] [facility] [address] [place], [place] [phone] Appointment Request (Outgoing call to patient. No answer. Patient needs an appt with provider. Thanks. eg); Jury Duty Letter (The pt requested a letter, asking to be excused from Jury Duty. He needs to provide a badge number, and the date of when he is expected to appear in court. I reached a voicemail, and left a msg asking him to return my call at ext [phone].) Social History Tobacco Use Types Packs/Day Years [...] 10:45 AM EDT Office Visit [facility] MEDICINE [address] [place] [address] Alexandra Ralph MD [address] [place] [address] documented as of this encounter Visit Diagnoses Not on filedocumented in this encounter Care Teams Algebra Tutor Relationship Specialty Start Date End Date LovejoyJo FNP [address] [place] [address] [phone] PCP - General Family Medicine 10/20/22 04/15/23 Alexandra Ralph MD [address] [place], [place] [phone] PCP - General Internal Medicine 04/16/23 documented as of this encounter
--- OUTSIDE RECORDS SUMMARY | 2025-02-07 08:13 | XMS_ITS | Encounter Summary ---
Author Organization [employer] Address [address] [facility] 7t [place] [address] Care Team Providers Care Air Hose Coupler Name Role Phone Alexandra Ralph MD Primary Care Provide r Reason for Visit * Reason Onset Date Comments No Show 01/10/2025 Encounter Details Date Type Department Care Team ([facility] st Contact Info) Description 01/10/2025 Telephone [facility] MEDICINE [address] [place] [address] Alexandra Ralph MD [address] [place] [address] No Show Social History Tobacco Use Types Packs/Day Years [...] encounter Miscellaneous Notes * Telephone Encounter - Lise Castillo - 01/10/2025 11:12 AM EST Pt no showed to appt on 01/10/25 documented in this encounter Plan of Treatment Upcoming Encounters Date Type Department Care Team (Late st Contact Info) Description 03/30/2025 10:45 AM EDT Office Visit [facility] MEDICINE [address] [place] [phone] Alexandra Ralph MD [address] [place] [address] documented as of this encounter Visit Diagnoses Not on filedocumented in this encounter Additional Health Concerns Assessment Noted Time PHQ-9 Depression Total Score: 6 06/28/20 24 9:58 AM EDT documented as of this encounter Care Teams Air Hose Coupler Relationship Specialty Start Date End Date Alexandra Ralph MD [address] [place] [phone] PCP - General Internal Medicine 04/16/23 documented as of this encounter
--- OUTSIDE RECORDS SUMMARY | 2025-02-07 08:13 | XMS_ITS | Encounter Summary ---
Author Organization [employer] Address [address] [place] [address] [address], [place] [address] Care Team Providers Care Cook Mayonnaise Name Role Phone Jeovanny Jo [facility] Primary Care Provider [phone] Alexandra Ralph MD Primary Care Provide r Encounter Details Date Type Department Care Team (Late Contact Info) Description 02/11/2023 Telephone [facility] MEDICINE [address] [place] [phone] Jo Up FNP [address] [place] [address] Social History Tobacco Use Types Packs/Day Years [...] Encounters Date Type Department Care Team (Late Contact Info) Description 03/30/2025 10:45 AM EDT Office Visit [facility] MEDICINE [address] [place] [phone] Alexandra Ralph MD [address] [place] [phone] documented as of this encounter Visit Diagnoses Not on filedocumented in this encounter Care Teams Cook Mayonnaise Relationship Specialty Start Date End Date Jo Up FNP [address] [place] [address] PCP - General Family Medicine 10/20/22 04/15/23 Alexandra Ralph MD [address] [place] [address] PCP - General Internal Medicine 04/16/23 documented as of this encounter
--- OUTSIDE RECORDS SUMMARY | 2025-02-07 08:13 | XMS_ITS | Encounter Summary ---
Author Organization [employer] Address 75 [facility] 7t [place] [address] Care Team Providers Care Front Desk Manager Name Role Phone Alexandra Ralph MD Primary Care Provide r Reason for Referral * Imaging (Routine) - Closed Specialty Diagnoses / Procedures Referred By Aundrea t Referred To Contact Diagnoses Severe left inguinal pain Procedures CT Pelvis w/o Contrast Claire Hayden MD [address] [place] [address] Phone: tel: fax: [address] Phone: tel: fax: Referral ID Status Reason Start Date Expiration Date Visits Re quested Visits Authorized [id number] Closed 05/06/2023 05/05/2024 1 1 Encounter Details Date Type Department Care Team (Late st Contact Info) Description 05/06/2023 Orders Only [facility] [address] [place] [address] Claire Hayden MD [address] [place], [place] [phone] Severe left inguinal pain (Primary Dx) Social History Tobacco Use Types Packs/Day Years Used Date Smoking Tobacco: Every Day Cigarettes Smokeless Tobacco: Never Alcohol Use Standard Drinks/Week Comments Not Currently 0 (1 standard drink = 0.6 oz pur e alcohol) Depression Answer Date Recorded Patient Health Questionnaire-9 Score 0 04/20/2023 Depression Answer Date Recorded Patient Health Questionnaire-2 Score 0 04/20/2023 Sex and Gender Information Value Date Recorded Sex Assigned at Male 09/29/2022 10:31 AM EDT Legal Sex Male 10:31 AM EDT Gender Identity Male 09/29/2022 10:31 AM EDT Sexual Orientation Choose not to disclose 2021 10:31 AM EDT COVID-19 Exposure Response Date Recorded In the last 10 days, have yo u been in contact with someone who was confirmed or suspected to have Coronavirus/COVID-19? No / Unsure 04/28/2023 1:04 PM EDT documented as of this encounter Plan of Treatment Upcoming Encounters Date Type Department Care Team (Late st Contact Info) Description 03/30/2025 10:45 AM EDT Office Visit [facility] MEDICINE [address] [place] [phone] Alexandra Ralph MD [address] [place] [phone] Scheduled Orders Name Type Priority Associated Diagnoses Orde r Schedule CT Pelvis w/o Contrast Imaging Routine Severe left inguinal pain Expected: 05/06/2023, Expires: 05/06/2024 documented as of this encounter Visit Diagnoses Diagnosis Severe left inguinal pain- Primary Abdominal pain, left lower quadrant documented in this encounter Additional Health Concerns Assessment Noted Time PHQ-9 Depression Total Score: 0 04/20/20 23 1:48 PM EDT documented as of this encounter Care Teams Front Desk Manager Relationship Specialty Start Date End Date Alexandra Ralph MD [address] [place] [phone] PCP - General Internal Medicine 04/16/23 documented as of this encounter
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
--- OUTSIDE RECORDS SUMMARY | 2025-02-07 08:14 | XMS_ITS | Encounter Summary ---
Author Organization [employer] Address [address] [place] [address] Care Team Providers Care Certified Surgical First Assistant Name Role Phone Alexandra Ralph MD Primary Care Provide r Reason for Visit * Reason Comments Med Refill Encounter Details Date Type Department Care Team (Late st Contact Info) Description 11/05/2024 Refill [facility] MED & PEDS [address] [place] [address] Alexandra Ralph MD [address] [place] [address] Social History Tobacco Use Types Packs/Day Years [...] Description 03/30/2025 10:45 AM EDT Office Visit [facility] MEDICINE [address] [place] [address] Alexandra Ralph MD [address] [place] [address] documented as of this encounter Visit Diagnoses Not on filedocumented in this encounter Additional Health Concerns Assessment Noted Time PHQ-9 Depression Total Score: 6 06/28/20 24 9:58 AM EDT documented as of this encounter Care Teams Certified Surgical First Assistant Relationship Specialty Start Date End Date Alexandra Ralph MD [address] [place] [id number] PCP - General Internal Medicine 04/16/23 documented as of this encounter
--- OUTSIDE RECORDS SUMMARY | 2025-02-07 08:14 | XMS_ITS | Encounter Summary ---
Author Organization [employer] Address [address] [place] [address] Care Team Providers Care Septic Pump Truck Driver Name Role Phone Alexandra Ralph MD Primary Care Provide r Encounter Details Date Type Department Care Team ([facility] st Contact Info) Description 11/09/2024 Orders Only [facility] MEDICINE [address] [place] [address] Alexandra Ralph MD [address] [place] [address] Social History Tobacco Use Types Packs/Day Years [...] 10:45 AM EDT Office Visit [facility] MEDICINE [address] [place] [address] Alexandra Ralph MD [address] [place] [address] documented as of this encounter Visit Diagnoses Not on filedocumented in this encounter Additional Health Concerns Assessment Noted Time PHQ-9 Depression Total Score: 6 06/28/20 24 9:58 AM EDT documented as of this encounter Care Teams Septic Pump Truck Driver Relationship Specialty Start Date End Date Alexandra Ralph MD [address] [place] [address] PCP - General Internal Medicine 04/16/23 documented as of this encounter
== END 2025-02-07 08:16 | disposition home or self-care (01) ==
LOC: HO.HOS 07:59
PROVIDERS: Visit Provider Orthopaedic Surgery
DX: M25.512 Pain in left shoulder (principal)
CPT/HCPCS: 99213; G2211

== ENCOUNTER → 2025-02-07 07:58 | Outpatient (BNVA) | payer OTHER, SELFPAY | PROVIDERS: Visit Provider Orthopaedic Surgery | DX: M25.512 Pain in left shoulder (principal) | CPT/HCPCS: 99212 ==

== ENCOUNTER 2025-07-19 15:56 | Outpatient (REF) | payer OTHER, SELFPAY ==
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
--- OUTSIDE RECORDS SUMMARY | 2025-07-19 16:34 | XMS_ITS | Encounter Summary ---
Author Organization [employer] Address [address] [place] [address] [place], [place] [address] Care Team Providers Care Manager Internet Name Role Phone [place] [facility] Primary Care Provider [phone] Alexandra Ralph MD Primary Care Provide r Encounter Details Date Type Department Care Team (Late st Contact Info) Description 02/11/2023 Telephone [facility] MEDICINE [address] [place] [phone] JeovannyJo brown FNP [address] [place] [address] Social History Tobacco Use Types Packs/Day Years [...] Department Care Team (Late Contact Info) Description 08/10/2025 9:15 AM EDT Office Visit [facility] MEDICINE [address] [place] [phone] Alexandra Ralph MD [address] [place] [address] documented as of this encounter Visit Diagnoses Not on filedocumented in this encounter Care Teams Manager Internet Relationship Specialty Start Date End Date Jo Up FNP [address] [place] [address] [place] [address] PCP - General Family Medicine 10/20/22 04/15/23 Alexandra Ralph MD [address] [place] [address] PCP - General Internal Medicine 04/16/23 documented as of this encounter
[2025-07-19 17:32] LABS: MANUAL DIFF FLAG NO
[2025-07-19 17:39] LABS: Hematocrit 49.3 % (42.0-52.0); Hemoglobin 16.1 g/dl (14.0-18.0); Imm Gran Abs Auto 0.02 X10*3/uL (0.00-0.03); Imm Gran Pct Auto 0.3 % (0.0-0.4); Lymphocytes Absolute Auto 2.4 X10*3/uL (1.2-4.9); Mean Corpuscular HGB Conc 32.7 g/dl (31.0-36.0); Mean Corpuscular Hemoglobin 29.7 pg (27.0-33.0); Mean Corpuscular Volume 91.0 fL (80.0-98.0); NRBC Abs Auto 0.000 X10*3/uL (0.0-0.012); NRBC Pct Auto 0.0 /100WBC (0.0-0.2); Platelet Count 296 X10*3/uL (160-400); Red Blood Count 5.42 X10*6/uL (4.60-5.80); White Blood Count 7.8 X10*3/uL (4.8-10.8)
[2025-07-19 17:48] LABS: Hemoglobin A1C 158.7539 umol/L; Total Hemoglobin (HGBA1C) 4180.1142 umol/L
[2025-07-19 18:20] LABS: Alanine Aminotransferase 28 U/L (0-40); Albumin Level 5.0 g/dL (3.5-5.0); Alkaline Phosphatase 90 U/L (39-117); Anion Gap 15 (12-20); Aspartate Amino Transferase 40 U/L (5-37); Blood Urea Nitrogen 17 mg/dL (9-16); Calcium 9.8 mg/dL (8.4-10.2); Carbon Dioxide 28 mmol/L (22-29); Chloride 106 mmol/L (96-108); Cholesterol 213 mg/dL (<200); Estimated Glomerular Filt Rate > 60; HDL Cholesterol 40 mg/dL (>40); Potassium 5.1 mmol/L (3.3-5.1); Sodium 144 mmol/L (135-145); Total Protein 8.2 g/dL (6.5-8.0); Triglycerides 212 mg/dL (<150)
[2025-07-20 08:39] LABS: HBS Num1 52.82 mIU/mL (0-7.99); HBc Num1 12.05 S/CO (0.00-0.79); HBsAGNum1 0.50 S/CO (0.00-0.99); HIV Num 1 0.05 S/CO (0.00-0.99); Hepatitis A Antibody IgM 0.33 Index (0-0.79); Hepatitis B Surface Antigen Negative (Negative); ~HepC Num1 0.29 S/CO (0.00-0.79); ~Hepatitis A Antibody IgM Nonreactive (Nonreactive); ~Hepatitis B Surface Antibody REACTIVE (Nonreactive); ~Hepatitis C Antibody Nonreactive (Nonreactive)
[2025-07-20 09:42] LABS: HBc Num2 11.83 S/CO; HBc Num3 12.25 S/CO
[2025-07-21 10:54] LABS: Anti Nuclear Antibody Screen NEGATIVE (NEGATIVE)
== END 2025-07-19 15:57 | disposition home or self-care (01) ==
LOC: HO.HHCL 15:56
PROVIDERS: PCP Internal Medicine; Visit Provider Internal Medicine
DX: Z01.84 Encounter for antibody response examination (principal); Z11.59 Encounter for screening for other viral diseases; Z11.4 Encounter for screening for human immunodeficiency virus [HIV]; R63.4 Abnormal weight loss; E78.5 Hyperlipidemia, unspecified; Z13.1 Encounter for screening for diabetes mellitus
CPT/HCPCS: 36415; 80053; 80061; 83036; 84443; 85025; 86038; 86704; 86706; 86709; 86803; 87340; 87389

== ENCOUNTER 2025-08-15 07:19 | Emergency (ER) | payer OTHER, SELFPAY ==
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
--- NOTE | ~2025-08-15 | XR_ITS ---
EXAMINATION: XR SHOULDER 2 OR MORE VIEWS LEFT HISTORY: Left shoulder pain COMPARISON: Comparison is made with the prior examination dated 06/18/2024. FINDINGS: Three views of the left shoulder are submitted. Osseous mineralization is normal. There has been partial resection of the distal clavicle. There is no fracture or dislocation. The glenohumeral and acromioclavicular joint spaces are preserved. The soft tissues are unremarkable. XR/XR shoulder LT min 2V IMPRESSION: Postsurgical changes involving the distal clavicle. Otherwise unremarkable examination of the left shoulder. Electronically signed by: Contrersa Monson MD 08/15/2025 08:02 AM EDT
[2025-08-15 08:03] VITALS: BMI 21.6
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
[2025-08-15 08:12] VITALS: BP 130/73; PULSE 57; RESP 16; TEMP 35.7; O2SAT 99
--- NOTE | 2025-08-15 08:14 | PC.NURSE ---
Pt A&O X4 VSS see by provider and awaiting f/u. No numbness tingling in extremity. moves well. no other complaints NAD
[2025-08-15 08:38] VITALS: BP 130/73; PULSE 57; RESP 16; TEMP 35.7; O2SAT 99
--- OUTSIDE RECORDS SUMMARY | 2025-08-15 10:21 | XMS_ITS | Encounter Summary ---
Author Organization [employer] Address [address] [place] [address] Care Team Providers Care Hedge Trimmer Name Role Phone Alexandra Ralph MD Primary Care Provide r Reason for Visit * Reason Comments Med Refill Encounter Details Date Type Department Care Team ([facility] st Contact Info) Description 08/14/2025 Refill [facility] [address] [place] [address] Alexandra Ralph MD [address] [place] [address] Contusion of left shoulder, initial encounter Social History Tobacco Use Types Packs/Day Years [...] Description 09/21/2025 1:45 PM EDT Office Visit [facility] [address] [place] [address] Nena Briseno, OD [address] [place] [address] documented as of this encounter Visit Diagnoses Diagnosis Contusion of left shoulder, initial encounter documented in this encounter Additional Health Concerns Assessment Noted Time PHQ-9 Depression Total Score: 6 06/28/20 24 9:58 AM EDT documented as of this encounter Care Teams Hedge Trimmer Relationship Specialty Start Date End Date Alexandra Ralph MD [address] [place] [address] PCP - General Internal Medicine 04/16/23 documented as of this encounter
--- OUTSIDE RECORDS SUMMARY | 2025-08-15 10:21 | XMS_ITS | Encounter Summary ---
Author Organization [employer] Address [address] [place] [address] Care Team Providers Care District Court Reporter Name Role Phone Alexandra Ralph MD Primary Care Provide r Encounter Details Date Type Department Care Team (Latest Contact Info) Description 08/10/2025 Travel Social History Tobacco Use Types Packs/Day Years [...] AM EDT documented as of this encounter Functional Status * Feeling down, [...] Author Not at all 08/10/2025 9:39 AM Ashanti Toribio MA * Thoughts that you would be [...] or on edge 0 08/10/2025 9:41 AM EDT Ashanti Posey MA Not being able to stop or control worrying 0 08/10/2025 9:41 AM EDT Ashanti Posey MA Worrying too much about different things 1 08/10/2025 9:41 AM EDT Ashanti Posey MA Trouble relaxing 0 08/10/2025 9:41 AM EDT Ashanti Kenny MA Being so restless that it is hard to sit still 3 08/10/2025 9:41 AM EDT Ashanti Posey MA Becoming easily annoyed or irritable 2 08/10/2025 9:41 AM EDT Ashanti Posey MA Feeling afraid as if something awful might happen 1 08/10/2025 9:41 AM EDT Ashanti Posey MA SANGITA-7 Total Score 7 08/10/2025 9:41 AM EDT Ashanti Posey MA documented as of this encounter Plan of Treatment Upcoming Encounters Date Type Department Care Team (Late st Contact Info) Description 09/21/2025 1:45 PM EDT Office Visit [facility] [address] [place] [address] TarNena raman, OD [address] [place] [address] documented as of this encounter Visit Diagnoses Not on filedocumented in this encounter Additional Health Concerns Assessment Noted Time PHQ-9 Depression Total Score: 6 06/28/ 24 9:58 AM EDT documented as of this encounter Care Teams District Court Reporter Relationship Specialty Start Date End Date Alexandra Ralph MD [address] [place] [address] PCP - General Internal Medicine 04/16/23 documented as of this encounter
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
--- OUTSIDE RECORDS SUMMARY | 2025-08-15 10:22 | XMS_ITS | Encounter Summary ---
Author Organization [employer] Address [address] [place] [address] Care Team Providers Care Manager Psychiatry Name Role Phone Jo Up INSIDE TRUCKER Primary Care Provider [phone] Alexandra Ralph MD Primary Care Provide r [...] Encounter Details Date Type Department Care Team ([facility] Contact Info) Description 11/10/2022 Telephone [facility] [address] [place] [address] Gemini Lovell MA Letter for Jury Duty [...] Description 09/21/2025 1:45 PM EDT Office Visit [facility] [address] [place], [place] [phone] Nena Briseno, OD [address] [place] [address] documented as of this encounter Visit Diagnoses Not on filedocumented in this encounter Care Teams Manager Psychiatry Relationship Specialty Start Date End Date LouisvilleJo brown FNP [address] [place] [address] PCP - General Family Medicine 10/20/22 04/15/23 Alexandra Ralph MD [address] [place], [place] [phone] PCP - General Internal Medicine 04/16/23 documented as of this encounter
--- OUTSIDE RECORDS SUMMARY | 2025-08-15 10:22 | XMS_ITS | Encounter Summary ---
Author Organization [employer] Address [address] [facility] [address] [place] [address] Care Team Providers Care Sales Development Specialist Name Role Phone Alexandra Ralph MD Primary Care Provide r Reason for Referral * Imaging (Routine) - Closed Specialty Diagnoses / Procedures Referred By Controman t Referred To Contact Diagnoses Severe left inguinal pain Procedures CT Pelvis w/o Contrast Claire Hayden MD [address] [place] [address] Phone: tel: fax: [facility] [address] [place] [address] Phone: tel: fax: Referral ID Status Reason Start Date Expiration Date Visits Re quested Visits Authorized [id number] Closed 05/06/2023 05/05/2024 1 1 Encounter Details Date Type Department Care Team (Late st Contact Info) Description 05/06/2023 Orders Only [facility] [address] [place] [address] Claire Hayden MD [address] [place] [address] Severe left inguinal pain (Primary Dx) Social [...] Description 09/21/2025 1:45 PM EDT Office Visit [facility] OPTOMETRY [address] [place], [place] [phone] Tarka, Nena, OD [address] [place] [address] Scheduled Orders Name Type Priority Associated Diagnoses Orde r Schedule CT Pelvis w/o Contrast Imaging Routine Severe left inguinal pain Expected: 05/06/2023, Expires: 05/06/2024 documented as of this encounter Visit Diagnoses Diagnosis Severe left inguinal pain- Primary Abdominal pain, left lower quadrant documented in this encounter Additional Health Concerns Assessment Noted Time PHQ-9 Depression Total Score: 0 04/20/20 1:48 PM EDT documented as of this encounter Care Teams Sales Development Specialist Relationship Specialty Start Date End Date Alexandra Ralph MD [address] [place] [id number] PCP - General Internal Medicine 04/16/23 documented as of this encounter
--- OUTSIDE RECORDS SUMMARY | 2025-08-15 10:22 | XMS_ITS | Encounter Summary ---
Author Organization [employer] Address [address] [place] [address] Care Team Providers Care Human Resource Advisor Name Role Phone Alexandra Ralph MD Primary Care Provide r Reason for Visit * Reason Comments Med Refill Encounter Details Date Type Department Care Team (Late st Contact Info) Description 11/05/2024 Refill [facility] [address] [place] [address] Alexandra Ralph MD [address] [place] [address] Social History Tobacco Use Types Packs/Day Years [...] Description 09/21/2025 1:45 PM EDT Office Visit [facility] OPTOM[facility] [address] [place] [address] Nena Briseno, OD [address] [place] [address] documented as of this encounter Visit Diagnoses Not on filedocumented in this encounter Additional Health Concerns Assessment Noted Time PHQ-9 Depression Total Score: 6 06/28/20 24 9:58 AM EDT documented as of this encounter Care Teams Human Resource Advisor Relationship Specialty Start Date End Date Alexandra Ralph MD [address] [place] [id number] PCP - General Internal Medicine 04/16/23 documented as of this encounter
--- OUTSIDE RECORDS SUMMARY | 2025-08-15 10:22 | XMS_ITS | Clinical Summary ---
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 Name Role Phone Alexandra Ralph MD Primary Care Provide r Allergies Active Allergy Reactions Criticality Noted Date Comments Oxycodone 07/06/2017 Medications Blood Pressure Monitor kitIndications:Tr ansient elevated blood pressure Use as directed 3x/week 1 kit 06/03/20 23 Active permethrin (Elimite) 5 % creamIndications: Rash and nonspecific skin eruption apply to skin from hairline to toes and wash off 8-10 hours later 60 g 11/10/20 24 Active triamcinolone (Kenalog) 0.1 % creamIndications: Rash and nonspecific skin eruption Use up to BID as needed for itching 80 g 11/10/20 24 Active cetirizine (ZyrTEC) 10 MG tablet TAKE 1 TABLET BY MOUTH TWICE DAILY FOR ITCHING 01/17/20 25 Active meclizine (Antivert) 25 MG tabletIndications :Dizziness 1-2 tablets po tid prn dizziness/ hold for ssedation 60 tablet 01/20/20 25 Active sildenafil (Viagra) 50 MG tabletIndications :Other male erectile dysfunction TAKE 1 TABLET 1 HOUR BEFORE SEXUAL RELATIONS ONCE DAILY NEEDED. 10 tablet 2 03/03/20 25 Active Acetaminophen Extra Strength 500 MG tabletIndications :Contusion of left shoulder, initial encounter TAKE 2 TABLETS BY MOUTH EVERY 8 HOURS NEEDED FOR MILD PAIN 30 tablet 1 04/11/20 25 Active diphenhydrAMINE (BENADryl) 25 MG capsule Take 2 capsules (50 mg) by mouth every 8 (eight) hours if needed for itching. May take 1-2 capsules prn rashor itching 30 capsule 2 04/11/20 25 Active gabapentin (Neurontin) 300 MG capsuleIndication s:Chronic bilateral low back pain with bilateral sciatica TAKE 1 CAPSULE BY MOUTH THREE TIMES DAILY IN THE MORNING, AT NOON AND AT BEDTIME NEEDED FOR PAIN 90 capsule 1 05/04/20 25 Active tamsulosin (Flomax) 0.4 MG 24 hr capsuleIndication s:Benign prostatic hyperplasia with urinary frequency TAKE 1 CAPSULE BY MOUTH DAILY IN THE MORNING 30 capsule 1 05/04/20 25 Active escitalopram (Lexapro) 10 MG tabletIndications :Mood disorder (CMS/HCC) TAKE 1 TABLET BY MOUTH EVERY DAY 30 tablet 3 05/04/20 25 Active omeprazole OTC (PriLOSEC OTC) 20 MG EC tablet Take 1 tablet (20 mg) by mouth before breakfast and before evening meal. Do not crush, chew, or split. 60 tablet 11 06/05/20 25 2025 Active aspirin 81 MG chewable tabletIndications :Hyperlipidemia, unspecified hyperlipidemia type Chew 1 tablet (81 mg) Once per day. 90 tablet 3 07/19/20 25 2025 Active atorvastatin (Lipitor) 80 MG tabletIndications :Hyperlipidemia, unspecified hyperlipidemia type Take 1 tablet (80 mg) by mouth Once per day. 30 tablet 11 08/10/20 25 2025 Active atorvastatin (Lipitor) 40 MG tablet Take 1 tablet (40 mg) by mouth Once per day. 90 tablet 3 11/11/20 24 2024 Discontinued(R eorder (will not trigger notification to Pharmacy)) aspirin 81 MG chewable tablet Chew 1 tablet (81 mg) Once per day. 90 tablet 3 11/11/20 24 2024 Discontinued(R eorder (will not trigger notification to Pharmacy)) atorvastatin (Lipitor) 40 MG tabletIndications :Hyperlipidemia, unspecified hyperlipidemia type Take 1 tablet (40 mg) by mouth Once per day. 90 tablet 3 07/19/20 25 2024 Discontinued Active Problems Problem Noted Date Diagnosed Date Elevated LFTs 08/10/2025 Assessment & Plan (08/10/2025 12:41 PM EDT): Counseling about healthy diet and exercise done today I will continue to monitor Unintentional weight loss 07/19/2025 Assessment & Plan (07/19/2025 5:10 PM EDT): On review of chart patient's weight always fluctuates between 130 and 140, I ordered some blood work patient will be contacted with results Chronic left shoulder pain 07/19/2025 Assessment & Plan (08/10/2025 12:40 PM EDT): Advised not to miss her appointment with orthopedics He may continue with acetaminophen as needed Assessment & Plan (07/19/2025 5:10 PM EDT): Patient referred to PT Benign paroxysmal positional vertigo due to bilateral vestibular disorder 07/19/2025 Assessment & Plan (07/19/2025 5:10 PM EDT): I will refer patient back to vestibular PT Encephalomalacia 01/23/2025 Overview (01/23/2025): From MRI 09/2024 In frontoparietal region Assessment & Plan (01/23/2025 6:41 AM EST): Refer to neurology, [facility] Arthritis of carpometacarpal (CMC) joint of righ t thumb 01/20/2025 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 01/20/2025 History of repair of right rotator cuff 01/20/20 25 Knee effusion, right 01/20/2025 Lumbar post-laminectomy syndrome [...] surgery, he will prefer to go to [facility] Cervical radiculopathy 05/29/2023 Degeneration of cervical intervertebral [...] (Dilaudid and Benadryl; post-concussive) [facility] Continue Meclizine prn Assessment & [...] PRN anxiety, hold for sedation Hyperlipidemia 03/31/2017 Assessment & Plan (08/10/2025 12:40 PM EDT): Extensive counseling about healthy diet and exercise done today I increase her atorvastatin to 80 mg daily and advised to continue with aspirin 81 mg daily Assessment & Plan (07/19/2025 5:10 PM EDT): Patient was counseled it was recommended healthy diet and exercise I refill his aspirin and atorvastatin Lipid panel ordered today Mood disorder 03/31/2017 Assessment & Plan (09/05/2024 [...] complete therapy on 01/23/2017 per the [facility] nurseStarted on Rifampin 600 mg po on 09/23/2016. Patient is monitored by the [facility] Nurse Shoulder pain 06/12/2017 09/07/2024 Encounter for screening colonoscopy 05/24/2012 05/29/2023 Overview (05/29/2023): normal Encounters Date Type Department Care Team Description 08/15/2025 Orders Only [facility] External Provider, [facility] 08/14/[address] [address] Alexandra Ralph MD Contusion of left shoulder, initial encounter 08/10/2025 9:15 AM EDT Office Visit [address] [address] Alexandra Ralph MD Hyperlipidemia, unspecified hyperlipidemia type (Primary Dx); Chronic left shoulder pain; Elevated LFTs 08/10/2025 Travel 08/09/[address] [address] Alexandra Ralph MD Chart Prep 08/02/2025 Telephone [facility] [address] [place], [place] [phone] Alexandra Ralph MD Care Coordination (C3/CM) 08/01/2025 Patient Outreach [address] [address] Alexandra Ralph MD Pre-visit Planning (SDOH screening negative and tobacco screening positive) 07/19/2025 3:20 PM EDT Office Visit [facility] [address] [address] Alexandra aRlph MD Unintentional weight loss (Primary Dx); Chronic left shoulder pain; Benign paroxysmal positional vertigo due to bilateral vestibular disorder; Colon cancer screening; Hyperlipidemia, unspecified hyperlipidemia type 07/19/2025 Telephone [facility] [address] [address] Alexandra Ralph MD Shoulder Pain and dizziness 07/19/2025 Travel 07/17/[address] [place] [address] Alexandra Ralph MD Referral 06/05/2025 10:00 AM EDT Office Visit [facility] [address] [place] [address] Claire Hayden MD Gastroesophageal reflux disease without esophagitis (Primary Dx); Sore throat 06/05/2025 Telephone [facility] [address] [place] [address] Criss Meehan, OD 06/05/2025 Travel from Last 3 Months Immunizations Immunization Administration Dates Next Due Hep A, Adult [...] 18 08/10/2025 9:12 AM EDT Oxygen Saturation 98% 07/19/2025 3:25 PM EDT Inhaled Oxygen Concentration - - Weight 60.8 kg (134 lb 2 oz) 08/10/2025 9:12 AM EDT Height 165.1 cm (5' 5 ) 08/10/2025 9:12 AM EDT Body Mass Index 22.32 08/10/2025 9:12 AM EDT Plan of Treatment Upcoming Encounters Date Type Department Care Team (Late Contact Info) Description 09/21/2025 1:45 PM EDT Office Visit [facility] [address] [place] [address] Nena Briseno, OD [address] [place] [address] Health Maintenance Due Date Last Done Comments CT Colonography 1955 Colonoscopy 1953 Colorectal Cancer Screening 1955 FIT DNA/Cologuard 1955 FIT 1955 FOBT 1955 Sigmoidoscopy 1955 Diabetes: Foot Exam 1963 Eye Exam 1963 Diabetes: Urine Protein Screening 1972 Zoster Vaccines (3 of 3) 07/29/2021 06/03/2021, 06/2017 Depression Screening 06/28/2025 06/28/2024, 06/28/20 24 COVID-19 Vaccine ( - season) 2025 11/01/2021, 03/09/2021 Influenza Vaccine (#1) 2025 , 08/22/2022, 10/30/2021, Additional history exists Diabetes: Hemoglobin A1C 01/19/2026 07/19/2025, 11/2020 Tobacco Screening 06/05/2026 06/05/2025 Lipid Panel 07/19/2026 07/19/2025, 10/30/2021 SDOH Screening 08/01/2026 08/01/2025 Alcohol/Substance Use Screening 08/10/2026 08/10/2025 DTaP/Tdap/Td Vaccines (3 - Td or Tdap) 07/06/2029 07/06/2019, 04/06/2017, 03/29/2009 Hepatitis A Vaccines Aged Out 07/06/2019, 07/05/20 19 No longer eligible based on patient's age to complete this topic Pneumococcal Vaccine: 50+ Years Completed 04/20/2023, 10/30/2021, 07/08/2019, Additional history exists RSV Patients and Patients Aged 60 years or older Completed 12/11/2023 Hepatitis C Screening Completed 07/19/2025, 024 HIB Vaccines Aged Out No longer eligi [...] Procedure Name Priority Date/Time Associated Diagnosis Comments XR SHOULDER 2+ VIEWS LEFT Routine 08/15/2025 7:53 AM EDT LIPID PANEL, STANDARD Routine 07/19/2025 4:01 PM EDT Hyperlipidemia, unspecified hyperlipidemia type RONNY SCREEN, IFA, W/REFL TITER AND PATTERN Routine 07/19/2025 4:01 PM EDT Unintentional weight loss HIV 1/2 ANTIGEN/ANTIBODY, FOURTH GENERATION W/RFL Routine 07/19/2025 4:01 PM EDT Unintentional weight loss TSH W/REFLEX TO FT4 Routine 07/19/2025 4 :01 PM EDT Unintentional weight loss HEPATITIS PANEL, GENERAL Routine 07/19/2025 4:01 PM EDT Unintentional weight loss HEMOGLOBIN A1C Routine 07/19/2025 4:01 PM EDT Unintentional weight loss COMPREHENSIVE METABOLIC PANEL Routine 07/19/2025 4:01 PM EDT Unintentional weight loss CBC WITH AUTO DIFFERENTIAL Routine 07/19/2025 4:01 PM EDT Unintentional weight loss POCT RAPID STREP A Routine 06/05/2025 9: 59 AM EDT Sore throat from Last 3 Months Results * XR Shoulder 2+ Views Left (08/15/2025 7:53 AM EDT) Anatomical Region Laterality Modality Upper Extremities, Shoulder Left Radi ographic Imaging 08/15/2025 7:53 AM EDT Narrative 08/15/2025 8:05 AM EDT [address] [address] XRay Report Signed Patient: Celestino Rowe MR#: [id number] : 1955 Acct:[id number] Age/Sex: 69 / M ADM Date: 08/15/25 Loc: HO.ED Attending Dr: Ordering Physician: Mackenzie Oliveira Date of Service: 08/15/25 Procedure(s): XR shoulder LT min 2V Accession Number(s): [id number] cc: Alexandra Ralph MD; Mackenzie Oliveira Reason for Exam: Lshouler pain EXAMINATION: XR SHOULDER 2 OR MORE VIEWS LEFT HISTORY: Left shoulder pain COMPARISON: Comparison is made with the prior examination dated 06/18/2024. FINDINGS: Three views of the left shoulder are submitted. Osseous mineralization is normal. There has been partial resection of the distal clavicle. There is no fracture or dislocation. The glenohumeral and acromioclavicular joint spaces are preserved. The soft tissues are unremarkable. XR/XR shoulder LT min 2V IMPRESSION: Postsurgical changes involving the distal clavicle. Otherwise unremarkable examination of the left shoulder. Electronically signed by: Contreras Monson MD 08/15/2025 08:02 AM EDT Dictated By: Contreras Monson MD Signed By: <Electronically signed by Contreras Monson MD in OV> 08/15/25 0802 DD/ 0753 TD/TT: 08/15/25 075 Tube Mounter: Procedure Note Donotuseinterpreter, Image - 08/15/[address] [address] XRay Report Signed Patient: Mark Rowe#: [id number] : 1955cct:[id number] Age/Sex: 69 / MADM Date: 08/15/25 Loc: HO.ED Attending Dr: Ordering Physician: Mackenzie Oliveira Date of Service: 08/15/25 Procedure(s): XR shoulder LT min 2V Accession Number(s): [id number] cc: Alexandra Ralph MD; Mackenzie Oliveira Reason for Exam: Lshouler pain EXAMINATION: XR SHOULDER 2 OR MORE VIEWS LEFT HISTORY: Left shoulder pain COMPARISON: Comparison is made with the prior examination dated 06/18/2024. FINDINGS: Three views of the left shoulder are submitted. Osseous mineralization is normal. There has been partial resection of the distal clavicle. There is no fracture or dislocation. The glenohumeral and acromioclavicular joint spaces are preserved. The soft tissues are unremarkable. XR/XR shoulder LT min 2V IMPRESSION: Postsurgical changes involving the distal clavicle. Otherwise unremarkable examination of the left shoulder. Electronically signed by: Contreras Monson MD 08/15/2025 08:02 AM EDT Dictated By: Contreras Monson MD Signed By: <Electronically signed by Contreras Monson MD in OV> 08/15/25 0802 DD/ 0753 TD/TT: 08/15/25 0754 Tube Mounter: [facility] External Provider IMG XR PROCEDURES Edited Result - Final * TSH with Reflex to Free T4 (07/19/2025 4:01 PM EDT) TSH reflex Free T4 2.05 0.32 - 4.0 uIU/mL [facility] Blood Venous blood specimen / Unknown 07/19/2025 4:01 PM EDT 07/19/2025 5:30 PM EDT Alexandra Herrera MD LAB BLOOD ORDERABLES Final Result Performing Organization Address [facility]/ZIP Co de Phone Number [facility] [address] [place] [phone] * Hepatitis Panel, General (07/19/2025 4:01 PM EDT) [facility] Hepatitis A IgM Nonreactive Nonreactive [facility] Comment:IgM antibodies to MADDEN V not detected; does not exclude earlyacute or recovered HAV infection. ~Hepatitis B Surface Antibody REACTIVE Nonreactive [facility] Comment:REACTIVE: > 11.99 mI U/mL Hepatitis B Core Antibody Reactive Nonreactive [facility] Comment:Presumptive evidence of anti-HBc. Hepatitis C Antibody Nonreactive Nonreactive [facility] Comment:Antibodies to HCV no t detected; does not exclude early acuteHCV infection. Hepatitis B Surface Ag Negative Negative [facility] Blood Venous blood specimen / Unknown 07/19/2025 4:01 PM EDT 07/19/2025 5:30 PM EDT Alexandra Herrera MD LAB BLOOD ORDERABLES Final Result Performing Organization Address [facility] Co de Phone Number [facility] [address] [place] [phone] * CBC auto differential (07/19/2025 4:01 PM EDT) [facility] White Blood Count 7.8 4.8 - 10.8 X10*3/uL [facility] Red Blood Count 5.42 4.60 - 5.80 X10*6/uL [facility] Hemoglobin 16.1 14.0 - 18.0 g/dl [facility] Hematocrit 49.3 42.0 - 52.0 % [facility] Mean Corpuscular Volume 91.0 80.0 - 98.0 fL [facility] Mean Corpuscular Hemoglobin 29.7 27.0 - 33.0 pg [facility] Mean Corpuscular HGB Conc 32.7 31.0 - 36.0 g/dl [facility] Red Cell Distribution Width 13.8 11.0 - 16.0 % [facility] Platelet Count 296 160 - 400 X10*3/uL [facility] Mean Platelet Volume 11.3 9.4 - 12.4 fL [facility] Neutrophils Percent Auto 60.5 45 - 73 % [facility] Imm Gran Pct Auto 0.3 0.0 - 0.4 % [facility] Lymphocytes Percent Auto 30.8 20 - 40 % [facility] Monocytes Percent Auto 6.1 2 - 11 % [facility] Eosinophils Percent Auto 1.7 0 - 4 % [facility] Basophils Percent Auto 0.6 0 - 2 % [facility] NRBC Pct Auto 0.0 0.0 - 0.2 /100WBC [facility] Neutrophils Absolute Auto 4.7 2.0 - 8.3 x10*3/uL [facility] Imm Gran Abs Auto 0.02 0.00 - 0.03 X10*3/uL [facility] Lymphocytes Absolute Auto 2.4 1.2 - 4.9 X10*3/uL [facility] Monocytes Absolute Auto 0.5 0.1 - 1.2 X10*3/uL [facility] Eosinophils Absolute Auto 0.1 0.0 - 0.4 X10*3/uL [facility] Basophils Absolute Auto 0.1 0.0 - 0.2 X10*3/uL [facility] NRBC Abs Auto 0.000 0.0 - 0.012 X10*3/uL [facility] Blood Venous blood specimen / Unknown 07/19/2025 4:01 PM EDT 07/19/2025 5:30 PM EDT us Alexandra Herrera MD LAB BLOOD ORDERABLES Final Result [facility] [address] [place] [phone] * HIV-1/2 Antigen and Antibodies, Fourth Generation, with Reflexes (07/19/2025 4:01 PM EDT) HIV AB/AG Nonreactive Nonreactive [facility] Comment:HIV-1 p24 Ag and/or HIV-1/HIV-2 Ab not detected.A test result that is nonreactive does not exclude thepossibility of exposure to or infection with HIV-1 and/orHIV-2. Nonreactive results in this assay for individualswith prior exposure to HIV-1 and/or HIV-2 may be due toantigen and antibody levels that are below the limit ofdetection of this assay.The inmobly HIV Ag/Ab Combo assay result andsupplemental assay results should be interpreted inconjunction with the patient's clinical presentation,history and other laboratory results. If the results areinconsistent with clinical evidence, additional testing issuggested to confirm the result. Blood Venous blood specimen / Unknown 07/19/2025 4:01 PM EDT 07/19/2025 5:30 PM EDT us Alexandra Herrera MD LAB BLOOD ORDERABLES Final Result [facility] [address] [place] [phone] * RONNY Screen,IFA, with Reflex to Titer and Pattern (07/19/2025 4:01 PM EDT) Anti Nuclear Antibody Screen NEGATIVE NEGATIVE [facility] Comment:RONNY IFA is a first l ine screen for detecting thepresence of up to approximately 150 autoantibodies invarious autoimmune diseases. A negative RONNY IFA resultsuggests an RONNY-associated autoimmune disease is notpresent at this time, but is not definitive. If thereis high clinical suspicion for Sjogren's syndrome,testing for anti-SS-A/Ro antibody should be considered.Anti-Miriam-1 antibody should be considered for clinicallysuspected inflammatory myopathies.AC-0: NegativeInternational Consensus on RONNY Patterns(https://doi.org/10.1515/ydal-7347-2576)For additional information, please refer tohttp://education.[employer].com/faq/VIC320(This link is being provided for informational/educational purposes only.)THIS TEST WAS PERFORMED AT:[email or web address] [place] [phone] BRYANT MD RONNY Titer [facility] RONNY Pattern [facility] RONNY TITER 2 (REF LAB) [facility] RONNY Pattern 2 [facility] RONNY TITER 3 [facility] RONNY PATTERN 3 [facility] Blood Venous blood specimen / Unknown 07/19/2025 4:01 PM EDT 07/19/2025 5:30 PM EDT us Alexandra Herrera MD LAB BLOOD ORDERABLES Final Result Performing Organization Address [facility]/ZIP Co de Phone Number [facility] [address] [place] [phone] * Hemoglobin A1c (07/19/2025 4:01 PM EDT) Hemoglobin A1c 5.6 <6.0 % [facility] Comment:Hemoglobin A1C Refer ence Range Adults: 4.8 - 6.0 % Non diabetic: < 6.0 % Goal: < 7.0 %Additional Action Suggested: > 8.0 %Note: Hemoglobin A1c results are invalid for patients with abnormal amounts of HbF. Blood transfusions may impact the HbA1c concentration in the patient sample. Estimated Average Glucose 114 mg/dL [facility] Comment:eAG = Estimated ave rage glucose which is %A1C expressed asaverage glucose, using the formula of the I8O-DyujqlhGnwmqkx Glucose study (ADAG), Diabetes Care, Vol.31,#8,Jun. 2007 Blood Venous blood specimen / Unknown 07/19/2025 4:01 PM EDT 07/19/2025 5:30 PM EDT us Alexandra Herrera MD LAB BLOOD ORDERABLES Final Result Performing Organization Address [facility]/ZIP Co de Phone Number [facility] [address] [place] [phone] * (ABNORMAL) Lipid Panel, Standard (07/19/2025 4:01 PM EDT) Triglycerides 212(H) <150 mg/dL [facility] Comment:Desirable Triglyceri de: less than 150 mg/dLBorderline High Triglyceride 150-199 mg/dLHigh Triglyceride: 200-499 mg/dLVery High Triglyceride: greater than or equal to 5OO mg/dL Cholesterol 213(H) <200 mg/dL [facility] Comment:Desirable Cholestero l: less than 200 mg/dLBorderline High Cholesterol: 200-239 mg/dLHigh Cholesterol: greater than 239 mg/dL LDL Cholesterol Calculated 131(H) <100 mg/dL [facility] Comment:Desirable LDL: less than 100 mg/dLNear Optimal/Above Optimal LDL: 110- 129 mg/dLBorderline High LDL: 130-159 mg/dLHigh LDL: 160-189 mg/dLVery High LDL: greater than or equal to 190 mg/dL HDL Cholesterol 40(L) >40 mg/dL [facility] Comment:Desirable HDL: great er than 40 mg/dL Note: This HDL assay may give artificially low results in patients with liver disease. Blood Venous blood specimen / Unknown 07/19/2025 4:01 PM EDT 07/19/2025 5:30 PM EDT us Alexandra Herrera MD LAB BLOOD ORDERABLES Final Result [facility] [address] [place] [phone] * (ABNORMAL) Comprehensive Metabolic Panel (07/19/2025 4:01 PM EDT) Sodium 144 135 - 145 mmol/L [facility] Potassium 5.1 3.3 - 5.1 mmol/L [facility] Chloride 106 96 - 108 mmol/L [facility] Carbon Dioxide 28 22 - 29 mmol/L [facility] Anion Gap 15 12 - 20 [facility] Urea Nitrogen (BUN) 17(H) 9 - 16 mg/dL [facility] Creatinine, Serum 1.11 0.5 - 1.4 mg/dL [facility] Estimated Glomerular Filt Rate >60 [facility] Comment:Chronic Kidney Disea se: Estimated GFR < 60 mL/min/1.50e8[place]xtjem Kidney Disease: Estimated GFR < 15 mL/min/1.73m2 Glucose 88 60 - 115 mg/dL [facility] Calcium 9.8 8.4 - 10.2 mg/dL [facility] Bilirubin, Total 0.5 0.0 - 1.0 mg/dL [facility] Aspartate Amino Transferase 40(H) 5 - 37 U/L [facility] Alanine Aminotransferase 28 0 - 40 U/L [facility] Total Protein 8.2(H) 6.5 - 8.0 g/dL [facility] Albumin Level 5.0 3.5 - 5.0 g/dL [facility] Alkaline Phosphatase 90 39 - 117 U/L [facility] Blood Venous blood specimen / Unknown 07/19/2025 4:01 PM EDT 07/19/2025 5:30 PM EDT us Alexandra Herrera MD LAB BLOOD ORDERABLES Final Result Performing Organization Address [facility]/State/ZIP Co de Phone Number [facility] [address] [place] [phone] * POCT rapid strep A manually resulted (06/05/2025 9:59 AM EDT) Rapid Strep A Screen Negative Negative, None Detected Swab 06/05/2025 9:59 AM EDT Claire Hayden MD POINT OF CARE TEST ENTER/EDIT OR DERABLES Final Result from Last 3 Months Insurance [facility] [facility] [employer] (HMO D-SNP) [place] [id number] Care Teams [employer] Bus [employer] Relationship Specialty Start Date End Date Alexandra Ralph MD [address] [place] [address] PCP - General Internal Medicine 04/16/23
--- OUTSIDE RECORDS SUMMARY | 2025-08-15 10:22 | XMS_ITS | Encounter Summary ---
Author Organization [employer] Address [address] [place] [address] [address] [address] Care Team Providers Care Pack Mule Worker Name Role Phone [facility] Primary Care Provider [phone] Alexandra Ralph MD Primary Care Provide r Encounter Details Date Type Department Care Team (Late st Contact Info) Description 02/11/2023 Telephone [facility] [address] [place] [address] MarstellerJo [facility] [address] [place] [address] Social History Tobacco Use Types Packs/Day Years [...] Description 09/21/2025 1:45 PM EDT Office Visit [facility] [address] [place] [address] Nena Briseno, OD [address] [place] [address] documented as of this encounter Visit Diagnoses Not on filedocumented in this encounter Care Teams Pack Mule Worker Relationship Specialty Start Date End Date Jo Up [facility] [address] [place] [address] PCP - General Family Medicine 10/20/22 04/15/23 Alexandra Ralph MD [address] [place] [address] PCP - General Internal Medicine 04/16/23 documented as of this encounter
--- OUTSIDE RECORDS SUMMARY | 2025-08-15 10:22 | XMS_ITS | Encounter Summary ---
Author Organization [employer] Address [address] [facility] [address] [place] [address] Care Team Providers Care Hob Machine Operator Name Role Phone Alexandra Ralph MD Primary Care Provide r Encounter Details Date Type Department Care Team ([facility] st Contact Info) Description 11/09/2024 Orders Only [facility] MED[facility]INE [address] [place] [address] Alexandra Ralph MD [address] [place] [address] Social History Tobacco Use Types Packs/Day Years [...] Description 09/21/2025 1:45 PM EDT Office Visit [facility] OPT[facility] [address] [place] [address] Nena Briseno, OD [address] [place] [address] documented as of this encounter Visit Diagnoses Not on filedocumented in this encounter Additional Health Concerns Assessment Noted Time PHQ-9 Depression Total Score: 6 06/28/20 24 9:58 AM EDT documented as of this encounter Care Teams Hob Machine Operator Relationship Specialty Start Date End Date Alexandra Ralph MD [address] [place] [address] PCP - General Internal Medicine 04/16/23 documented as of this encounter
--- OUTSIDE RECORDS SUMMARY | 2025-08-15 10:22 | XMS_ITS | Encounter Summary ---
Author Organization [employer] Address [address] [facility] 7t [place] [address] Care Team Providers Care Chief Executive Officer Name Role Phone [facility] Primary Care Provider [phone] Alexandra Ralph MD Primary Care Provide r [...] Care Team (Late st Contact Info) Description 11/25/2022 Telephone [facility] [address] [place], [place] [phone] [facility] [address] [place], [place] [phone] Appointment Request (Outgoing call to patient. No [...] Description 09/21/2025 1:45 PM EDT Office Visit [facility] OPT[facility] [address] [place], [place] [phone] Nena Briseno, OD [address] [place] [address] documented as of this encounter Visit Diagnoses Not on filedocumented in this encounter Care Teams Chief Executive Officer Relationship Specialty Start Date End Date Jo Up FNP [address] [place] [address] PCP - General Family Medicine 10/20/22 04/15/23 Alexandra Ralph MD [address] [place] [address] PCP - General Internal Medicine 04/16/23 documented as of this encounter
--- OUTSIDE RECORDS SUMMARY | 2025-08-15 10:22 | XMS_ITS | Encounter Summary ---
Author Organization [employer] Address [address] [facility] [address] [place] [address] Care Team Providers Care Sole Rounder Name Role Phone Alexandra Ralph MD Primary Care Provide r Encounter Details Date Type Department Care Team (Late st Contact Info) Description 08/15/2025 Orders Only [facility] External Provider, [facility] Social History Tobacco Use Types Packs/Day Years [...] Description 09/21/2025 1:45 PM EDT Office Visit [facility] OPTOMETRY [address] [place] [address] TarkaNena, OD [address] [place] [address] documented as of this encounter Procedures Procedure Name Priority Date/Time Associated Diagnosis Comments XR SHOULDER 2+ VIEWS LEFT Routine 08/15/2025 7:53 AM EDT documented in this encounter Results * XR Shoulder 2+ Views Left (08/15/2025 7:53 AM EDT) Anatomical Region Laterality Modality Upper Extremities, Shoulder Left Radi ographic Imaging 08/15/2025 7:53 AM EDT Narrative 08/15/2025 8:05 AM EDT [address] [address] XRay Report Signed Patient: Celestino Rowe MR#: [id number] : 1955 Acct:[id number] Age/Sex: 69 / M ADM Date: 08/15/25 Loc: HO.ED Attending Dr: Ordering Physician: Mackenzie Oliveira Date of Service: 08/15/25 Procedure(s): XR shoulder LT min 2V Accession Number(s): [id number] cc: Alexandra Ralph MD; Mackenzie Oliveira Reason [...] Contreras Monson MD 08/15/2025 08:02 AM EDT RP Dictated By: Contreras Monson MD Signed By: <Electronically signed by Contreras Monson MD in OV> 08/15/25 0802 DD/ 2 TD/TT: 08/15/25 075 Travelift Operator: Procedure Note Donotuseinterpreter, Image - 08/15/[address] [address] XRay Report Signed Patient: Mark Rowe#: [id number] : 1955cct:[id number] Age/Sex: 69 / MADM Date: 08/15/25 Loc: .ED Attending Dr: Ordering Physician: Mackenzie Oliveira Date of Service: 08/15/25 Procedure(s): XR shoulder LT min 2V Accession Number(s): [id number] cc: Alexandra Ralph MD; Mackenzie Oliveira Reason [...] Contreras Monson MD 08/15/2025 08:02 AM EDT RP Dictated By: Contreras Monson MD Signed By: <Electronically signed by Contreras Monson MD in OV> 08/15/25 0802 DD/ 0753 TD/TT: 08/15/25 0754 Travelift Operator: [facility] External Provider IMG XR PROCEDURES Edited Result - Final documented in this encounter Visit Diagnoses Not on filedocumented in this encounter Additional Health Concerns Assessment Noted Time PHQ-9 Depression Total Score: 6 06/28/20 24 9:58 AM EDT documented as of this encounter Care Teams Sole Rounder Relationship Specialty Start Date End Date Alexandra Ralph MD [address] [place] [address] PCP - General Internal Medicine 04/16/23 documented as of this encounter
== END 2025-08-15 08:41 | disposition home or self-care (01) ==
LOC: HO.ED 08:38
PROVIDERS: Emergency Provider Emergency Medicine; PCP Internal Medicine
DX: M25.512 Pain in left shoulder (principal); M54.2 Cervicalgia; E78.5 Hyperlipidemia, unspecified; Z79.899 Other long term (current) drug therapy
CPT/HCPCS: 73030; 99283; 99284

== ENCOUNTER → 2025-08-15 07:45 | Outpatient (BNV) | payer OTHER, SELFPAY | PROVIDERS: Emergency Provider Emergency Medicine; PCP Internal Medicine; Visit Provider Radiology Diagnostic Radiology | DX: M19.012 Primary osteoarthritis, left shoulder (principal) | CPT/HCPCS: 73030 ==

== ENCOUNTER 2025-09-13 08:00 | Outpatient (RCR) | payer OTHER, SELFPAY | END 2025-10-03 08:56 | disposition home or self-care (01) | LOC: HO.PT 08:00 | PROVIDERS: PCP Internal Medicine; Visit Provider Internal Medicine | DX: M25.512 Pain in left shoulder (principal); G89.29 Other chronic pain | CPT/HCPCS: 97110; 97140; 97162; 97530 ==

== ENCOUNTER 2025-09-19 08:37 | Outpatient (AMB) | payer OTHER, SELFPAY ==
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
[2025-09-19 08:49] VITALS: BMI 21.6
== END 2025-09-19 09:07 | disposition home or self-care (01) ==
LOC: HO.HOS 08:38
PROVIDERS: PCP Internal Medicine; Visit Provider Orthopaedic Surgery
DX: M25.812 Other specified joint disorders, left shoulder (principal)
CPT/HCPCS: 20610; 99213

== ENCOUNTER → 2025-09-19 08:37 | Outpatient (BNVA) | payer OTHER, SELFPAY | PROVIDERS: PCP Internal Medicine; Visit Provider Orthopaedic Surgery | DX: M25.512 Pain in left shoulder (principal); M25.812 Other specified joint disorders, left shoulder | CPT/HCPCS: 20610; 99212; J1010; J2003 ==

== ENCOUNTER 2025-11-20 18:43 | Emergency (ER) | payer OTHER, SELFPAY ==
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
--- NOTE | ~2025-11-20 | CT_ITS ---
CLINICAL HISTORY: neck pain CT cervical spine without contrast Comparison: None provided Findings: No acute fracture of the cervical spine. Imaged right 1st rib fracture deformity appears old Moderate reversal of the cervical lordosis. Trace anterolisthesis of the C3-C4. Mild/minimal C4 through C6 vertebral height losses appear old/chronic. Degenerative disc changes include vacuum disc phenomenon, endplate sclerosis, and Schmorl's Schmorl's node endplate irregularities. Osteophytes, disc osteophyte complexes, ligament calcifications, and facet arthropathy are multifocal. Mild spinal canal stenosis includes C4-C5 through C6-C7. Foraminal narrowing is multifocal including [id number] spanning from C3-C4 to C6-C7 by CT. No paraspinal hematoma. Metal artifacts noted. Subcutaneous edema is present. Mild scarring emphysematous changes noted in the imaged lung apices. IMPRESSION: No acute fracture of the cervical spine. This document has been electronically signed by: Paddy Grant MD on 11/20/2025 20:31:46
[2025-11-20 19:32] VITALS: BP 154/80; PULSE 63; RESP 18; TEMP 36.4; O2SAT 97; BMI 23.3
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
--- OUTSIDE RECORDS SUMMARY | 2025-11-20 23:36 | XMS_ITS | Clinical Summary ---
Author Organization [employer] Address [address] [place] [address] Care Team Providers Care Bandage Wrapping Machine Operator Name Role Phone Alexandra Ralph MD Primary Care Provide r Allergies Active Allergy Reactions Criticality Noted Date Comments Oxycodone 07/06/2017 Other Reaction(s): Unknown Medications Blood Pressure Monitor kitIndications:Tra nsient elevated blood pressure Use as directed 3x/week 1 kit 3 Active permethrin (Elimite) 5 % creamIndications:R arron and nonspecific skin eruption apply to skin from hairline to toes and wash off 8-10 hours later 60 g 4 Active triamcinolone (Kenalog) 0.1 % creamIndications:R arron and nonspecific skin eruption Use up to BID as needed for itching 80 g 4 Active cetirizine (ZyrTEC) 10 MG tablet TAKE 1 TABLET BY MOUTH TWICE DAILY FOR ITCHING 5 Active meclizine (Antivert) 25 MG tabletIndications: Dizziness 1-2 tablets po tid prn dizziness/ hold for ssedation 60 tablet 5 Active escitalopram (Lexapro) 10 MG tabletIndications: Mood disorder (CMS/HCC) TAKE 1 TABLET BY MOUTH EVERY DAY 30 tablet 3 5 Active omeprazole OTC (PriLOSEC OTC) 20 MG EC tablet Take 1 tablet (20 mg) by mouth before breakfast and before evening meal. Do not crush, chew, or split. 60 tablet 11 5 06/05/20 26 Active aspirin 81 MG chewable tabletIndications: Hyperlipidemia, unspecified hyperlipidemia type Chew 1 tablet (81 mg) Once per day. 90 tablet 3 5 07/19/20 26 Active atorvastatin (Lipitor) 80 MG tabletIndications: Hyperlipidemia, unspecified hyperlipidemia type Take 1 tablet (80 mg) by mouth Once per day. 30 tablet 11 5 08/10/20 26 Active Acetaminophen Extra Strength 500 MG tabletIndications: Contusion of left shoulder, initial encounter TAKE 2 TABLETS BY MOUTH EVERY 8 HOURS NEEDED FOR MILD PAIN 30 tablet 1 5 Active sildenafil (Viagra) 50 MG tabletIndications: Other male erectile dysfunction TAKE 1 TABLET 1 HOUR BEFORE SEXUAL RELATIONS ONCE DAILY NEEDED. 10 tablet 2 5 Active diphenhydrAMINE (BENADryl) 25 MG capsule TAKE 1 TO 2 CAPSULES BY MOUTH EVERY 8 HOURS NEEDED RASH OR FOR ITCHING 30 capsule 2 5 Active gabapentin (Neurontin) 300 MG capsuleIndications :Chronic bilateral low back pain with bilateral sciatica TAKE 1 CAPSULE BY MOUTH THREE TIMES DAILY IN THE MORNING, AT NOON, AND AT BEDTIME NEEDED FOR PAIN 90 capsule 1 5 Active tamsulosin (Flomax) 0.4 MG 24 hr capsuleIndications :Benign prostatic hyperplasia with urinary frequency TAKE 1 CAPSULE BY MOUTH DAILY IN THE MORNING 30 capsule 1 5 Active Active Problems Problem Noted Date Diagnosed Date [...] (01/23/2025 6:41 AM EST): Refer to neurology, [facility] Arthritis of carpometacarpal (CMC) joint of [...] surgery, he will prefer to go to [facility] Cervical radiculopathy 05/29/2023 Degeneration of cervical [...] orthopedics, I also refer him to neurosurgery Chronic pain of both shoulders 04/20/2023 Assessment [...] (Dilaudid and Benadryl; post-concussive) Will refer to [facility] Neurology Continue Meclizine prn Assessment & [...] Patient complete therapy on 01/23/2017 per the [facility] nurseStarted on Rifampin 600 mg po on 09/23/2016. Patient is monitored by the [facility] Nurse Blurred vision, bilateral 04/20/2023 Shoulder pain 06/12/2017 09/07/2024 Encounter for screening colonoscopy 05/24/2012 05/29/2023 Overview (05/29/2023): normal Encounters Date Type Department Care Team Description 11/20/2025 Orders Only [facility] External Provider, [facility] 11/08/2025 Telephone [facility] [address] [place] [address] Alexandra Ralph MD FYI 11/01/2025 Telephone [facility] [address] [place] [address] Alexandra Ralph MD 09/29/2025 Telephone [facility] [address] [place] [address] Alexandra Ralph MD 09/21/2025 1:45 PM EDT Office Visit [facility] [address] [place] [address] Robertodanisha Nena, OD Nuclear sclerotic cataract of both eyes (Primary Dx); Presbyopia; Anatomical narrow angle of both eyes 09/06/2025 Refill [facility] [address] [place] [address] Alexandra Ralph MD Chronic bilateral low back pain with bilateral sciatica; Benign prostatic hyperplasia with urinary frequency 08/31/2025 Refill [facility] [address] [place] [address] Aelxandra Ralph MD 08/24/2025 Telephone [facility] [address] [place] [address] Alexandra Ralph MD Dec recall from Last 3 Months Immunizations Immunization Administration [...] 08/10/2025 9:12 AM EDT Plan of Treatment Health Maintenance Due Date Last Done Comments CT Colonography 1955 Colonoscopy 1955 Colorectal Cancer Screening 1955 FIT DNA/Cologuard 1955 FIT 1955 FOBT 1955 Sigmoidoscopy 1955 Diabetes: Foot Exam 1963 Diabetes: Urine Protein Screening 1972 Zoster Vaccines (3 of 3) 07/29/2021 06/03/2021, 06/2017 Depression Screening 06/28/2025 06/28/2024, 06/28/20 COVID-19 Vaccine ( season) 2025 11/01/2021, 03/09/2021 Influenza Vaccine (#1) 2025 , 08/22/2022, 10/30/2021, Additional history exists Diabetes: Hemoglobin A1C 01/19/2026 07/19/2025, 11/2020 Lipid Panel 07/19/2026 07/19/2025, 10/30/2021 SDOH Screening 08/01/2026 08/01/2025 Alcohol/Substance Use Screening 08/10/2026 08/10/2025 Tobacco Screening 09/21/2026 09/21/2025 Eye Exam 09/21/2027 09/21/2025, 08/31, 09/21/2025, Additional history exists DTaP/Tdap/Td Vaccines (3 - Td or Tdap) [...] WO CONTRAST Routine 11/20/2025 8:31 PM EST HEPATITIS PANEL, GENERAL Routine 07/19/2025 4:01 PM EDT Unintentional weight loss HEMOGLOBIN A1C Routine 07/19/2025 4:01 PM EDT Unintentional weight loss LIPID PANEL, STANDARD Routine 07/19/2025 4:01 PM EDT Hyperlipidemia, unspecified hyperlipidemia type from Last 3 Months or Most Recently Relevant to Health Maintenance Results * CT Head w/o Contrast (11/20/2025 8:35 PM EST) Anatomical Region Laterality Modality Head, Neck Computed Tomogra phy 11/20/2025 8:35 PM EST Narrative 11/20/2025 8:36 PM EST [address] [address] [address] Scan Report Signed Patient: Celestino Rowe MR#: [id number] : 1955 Acct:[id number] Age/Sex: 70 / M ADM Date: 11/20/25 Loc: HO.ED Attending Dr: Ordering Physician: Bridger Clifton Date of Service: 11/20/25 Procedure(s): CT head/brain wo IV con Accession Number(s): [id number] cc: Bridger Clifton; Alexandra Ralph MD Report Number: [id number]: Total DLP = 0.00 mGy-cm Reason for [...] in OV> 11/20/252034 DD/ 34 TD/TT: 11/20/252034 Electronic Imaging System Operator: Procedure Note Donotuseinterpreter, Image - 11/20/[address] [address] [address] Scan Report Signed Patient: Ольга RoweR#: [id number] : 1955cct:[id number] Age/Sex: 70 / MADM Date: 11/20/25 Loc: HO.ED Attending Dr: Ordering Physician: Bridger Clifton Date of Service: 11/20/25 Procedure(s): CT head/brain wo IV con Accession Number(s): [id number] cc: Bridger Clifton; Alexandra Ralph MD Report Number: [id number]: Total DLP = 0.00 mGy-cm Reason for [...] in OV> 11/20/252034 DD/ 34 TD/TT: 11/20/252034 Electronic Imaging System Operator: [facility] External Provider IMG CT PROCEDURES Final Result * CT Cervical Spine w/o Contrast (11/20/2025 8:31 PM EST) Anatomical Region Laterality Modality Spine, C-spine Computed Tomogra phy 11/20/2025 8:31 PM EST Narrative 11/20/2025 8:33 PM EST [place] [address] CT Scan Report Signed Patient: Celestino Rowe MR#: [id number] : 1955 Acct:[id number] Age/Sex: 70 / M ADM Date: 11/20/25 Loc: HO.ED Attending Dr: Ordering Physician: Bridger Clifton Date of Service: 11/20/25 Procedure(s): CT cervical spine wo IV con Accession Number(s): [id number] cc: Bridger Clifton; Alexandra Ralph MD Report Number: [id number]: Total DLP = 0.00 mGy-cm Reason for [...] through C6-C7. Foraminal narrowing is multifocal including hucolklr-vy-ltuhxm spanning from C3-C4 to C6-C7 by CT. [...] in OV> 11/20/252032 DD/ 30 TD/TT: 11/20/252030 Electronic Imaging System Operator: Procedure Note Donotuseinterpreter, Image - 11/20/[address] [place] [address] [address] Scan Report Signed Patient: Mark Rowe#: [id number] : 1955cct:[id number] Age/Sex: 70 / MADM Date: 11/20/25 Loc: HO.ED Attending Dr: Ordering Physician: Bridger Clifton Date of Service: 11/20/25 Procedure(s): CT cervical spine wo IV con Accession Number(s): [id number] cc: Bridger Clifton; Alexandra Ralph MD Report Number: [id number]: Total DLP = 0.00 mGy-cm Reason for [...] through C6-C7. Foraminal narrowing is multifocal including ukafwysg-yd-tvcgha spanning from C3-C4 to C6-C7 by CT. [...] in OV> 11/20/252032 DD/ 30 TD/TT: 11/20/252030 Electronic Imaging System Operator: [facility] External Provider IMG CT PROCEDURES Final Result * Hepatitis Panel, General (07/19/2025 4:01 PM EDT) Hepatitis A IgM Nonreactive Nonreactive [facility] Comment:IgM antibodies to MADDEN V not detected; does not exclude earlyacute or recovered HAV infection. ~Hepatitis B Surface Antibody REACTIVE Nonreactive [facility] Comment:REACTIVE: > 11.99 mI U/mL Hepatitis B Core Antibody Reactive Nonreactive [facility] Comment:Presumptive evidence of anti-HBc. Hepatitis C Antibody Nonreactive Nonreactive [facility] Comment:Antibodies to HCV no t detected; does not exclude early acuteHCV infection. Hepatitis B Surface Ag Negative Negative [facility] Blood Venous blood specimen / Unknown 07/19/2025 4:01 PM EDT 07/19/2025 5:30 PM EDT us Alexandra Herrera MD LAB BLOOD ORDERABLES Final Result Performing Organization Address [facility] de Phone Number [facility] [address] [place] [phone] * Hemoglobin A1c (07/19/2025 4:01 PM EDT) Hemoglobin A1c 5.6 <6.0 % [facility] Comment:Hemoglobin A1C Refer ence Range Adults: 4.8 - 6.0 % Non diabetic: < 6.0 % Goal: < 7.0 %Additional Action Suggested: > 8.0 %Note: Hemoglobin A1c results are invalid for patients with abnormal amounts of HbF. Blood transfusions may impact the HbA1c concentration in the patient sample. Estimated Average Glucose 114 mg/dL [facility] Comment:eAG = Estimated ave rage glucose which is %A1C expressed asaverage glucose, using the formula of the C0Z-NxsjwupKqaasuu Glucose study (ADAG), Diabetes Care, Vol.31,#8,2007 Blood Venous blood specimen / Unknown 07/19/2025 4:01 PM EDT 07/19/2025 5:30 PM EDT us Alexandra Herrera MD LAB BLOOD ORDERABLES Final Result Performing Organization Address [facility] Co va Phone Number [facility] [address] [place] [phone] * (ABNORMAL) Lipid Panel, Standard (07/19/2025 4:01 PM EDT) Triglycerides 212(H) <150 mg/dL [facility] Comment:Desirable Triglyceri de: less than 150 mg/dLBorderline High Triglyceride 150-199 mg/dLHigh Triglyceride: 200-499 mg/dLVery High Triglyceride: greater than or equal to 5OO mg/dL Cholesterol 213(H) <200 mg/dL [facility] Comment:Desirable Cholestero l: less than 200 mg/dLBorderline High Cholesterol: 200-239 mg/dLHigh Cholesterol: greater than 239 mg/dL LDL Cholesterol Calculated 131(H) <100 mg/dL [facility] Comment:Desirable LDL: less than 100 mg/dLNear Optimal/Above Optimal LDL: 110- 129 mg/dLBorderline High LDL: 130-159 mg/dLHigh LDL: 160-189 mg/dLVery High LDL: greater than or equal to 190 mg/dL HDL Cholesterol 40(L) >40 mg/dL [facility] Comment:Desirable HDL: great er than 40 mg/dL Note: This HDL assay may give artificially low results in patients with liver disease. Blood Venous blood specimen / Unknown 07/19/2025 4:01 PM EDT 07/19/2025 5:30 PM EDT Alexandra Herrera MD LAB BLOOD ORDERABLES Final Result Performing Organization Address City/State/[facility] Co de Phone Number [facility] [address] [place] [address] [phone] from Last 3 Months or Most Recently Relevant to Health Maintenance Insurance [employer] [id number] Care Teams Bandage Wrapping Machine Operator Relationship Specialty Start Date End Date Alexandra Ralph MD [address] [place] [address] PCP - General Internal Medicine 04/16/23
--- OUTSIDE RECORDS SUMMARY | 2025-11-20 23:36 | XMS_ITS | Encounter Summary ---
Author Organization [employer] Address [address] [place] [address] [address] [place] [address] Care Team Providers Care Loftsman/Woman Name Role Phone Jeovanny Jo [facility] Primary Care Provider [phone] Alexandra Ralph MD Primary Care Provide r Encounter Details Date Type Department Care Team ([facility] st Contact Info) Description 02/11/2023 Telephone [facility] [address] [place] [address] Jo Up FNP [address] [place] [address] Social History Tobacco Use Types Packs/Day Years [...] on file documented as of this encounter Visit Diagnoses Not on filedocumented in this encounter Care Teams Loftsman/Woman Relationship Specialty Start Date End Date Jo Up FNP [address] [place] [phone] PCP - General Family Medicine 10/20/22 04/15/23 Alexandra Ralph MD [address] [place] [phone] PCP - General Internal Medicine 04/16/23 documented as of this encounter
--- OUTSIDE RECORDS SUMMARY | 2025-11-20 23:36 | XMS_ITS | Encounter Summary ---
Author Organization [employer] Address [address] [place] [address] Care Team Providers Care Neonatal Icu Coordinator Name Role Phone Alexandra Ralph MD Primary Care Provide r Reason for Visit * Reason Comments Med Refill Encounter Details Date Type Department Care Team ([facility] st Contact Info) Description 11/05/2024 Refill [facility] [address] [place], [place] [phone] Alexandra Ralph MD [address] [place] [address] Social History Tobacco Use Types Packs/Day Years [...] documented as of this encounter Care Teams Neonatal Icu Coordinator Relationship Specialty Start Date End Date Alexandra Ralph MD [address] [place] [phone] PCP - General Internal Medicine 04/16/23 documented as of this encounter
--- OUTSIDE RECORDS SUMMARY | 2025-11-20 23:36 | XMS_ITS | Encounter Summary ---
Author Organization [employer] Address [address] [facility] [address] [place] [address] Care Team Providers Care Agency Sales Development Associate Name Role Phone Jo Up SUPERVISOR [employer] Primary Care Provider [phone] Alexandra Ralph MD Primary Care Provide r [...] Department Care Team (Late Contact Info) Description 11/10/2022 Telephone [facility] [address] [place] [address] Gemini Lovell [place] Letter for Jury Duty [...] on filedocumented in this encounter Care Teams Agency Sales Development Associate Relationship Specialty Start Date End Date Jo Up FNP [address] [place] [address] PCP - General Family Medicine 10/20/22 04/15/23 Alexandra Ralph MD [address] [place] [address] PCP - General Internal Medicine 04/16/23 documented as of this encounter
--- OUTSIDE RECORDS SUMMARY | 2025-11-20 23:36 | XMS_ITS | Encounter Summary ---
Author Organization [employer] Address [address] [facility] [address] [place] [address] Care Team Providers Care Mechanical Service Representative Name Role Phone [place] [facility] Primary Care Provider [phone] Alexandra Ralph MD Primary Care Provide r [...] Encounter Details Date Type Department Care Team ([facility] Contact Info) Description 11/25/2022 Telephone [facility] [address] [place], [place] [phone] [facility] [address] [place], [place] [phone] Appointment Request (Outgoing call to patient. No [...] on filedocumented in this encounter Care Teams Mechanical Service Representative Relationship Specialty Start Date End Date [place] FNP [address] [place] [address] PCP - General Family Medicine 10/20/22 04/15/23 Alexandra Ralph MD [address] [place] [address] PCP - General Internal Medicine 04/16/23 documented as of this encounter
--- OUTSIDE RECORDS SUMMARY | 2025-11-20 23:36 | XMS_ITS | Data Portability ---
Author Organization [facility] Address [address] [place] [address] Care Team Providers Care Bag Making Machine Tender Name Role Phone Unavailable OTHER HIM CCA OTHER Assessment Encounter Date Assessment Date Assessment LastModified by Organization Details LastModified Time 03/01/2025 03/01/2025 I have reviewed and agree with the assessment and plan as documented by the youth liaison officer. I provided real-time medical direction for this encounter and was immediately available to provide additional phone-based assistance as needed. History as noted in EMR and by youth liaison officer. I would add / emphasize: Patient is seen for acute on chronic dizziness. Patient has been having these sxs since 10/23 after a fall with head strike. No interval trauma. Describes the sensation as a lack of balance that prevents him from ambulating at times. Reports has seen a neuro specialist and tried meclizine without improvement. Reports has had head imaging that was reportedly negative. AVSS afebrile and well appearing per report. Ambulatory with a cane. BGL within normal limits. No focal neurologic findings per medic. Unclear etiology of pts sxs but given chronicity and exam doubt acute life threatening pathology such as acute CVA. May be post-concussive syndrome but this would be a dx of exclusion. Pt feels comfortable remaining at home and following up outpatient. PATIENT WOULD BENEFIT FROM ASSISTANCE WITH ESTABLISHING REEVALUATION BY A NEUROLOGIST AND POSSIBLE TRIAL OF VESTIBULAR PHYSICIAL THERAPY GIVEN MONTHS OF PERSISTENT SYMPTOMS. pallfather Not available 03/01/2025 10:02:47 Plan of Treatment Reminders Order Date Submit Date Provider Last Modified By Organization Details Last Modified Time Details Appointments None recorde d. Lab glucose , fingers tick, blood 025 03/01/20 25 [facility], [address] [place] [address], [place], [address] 11:35:13 Referral None recorde d. Procedures None recorde d. Surgeries None recorde d. Imaging None recorde d. Medication Orders None recorde d. Patient TargetsNo targets recorded. Patient InstructionsNo instructions recorded. Reason for Referral None Reported. Results Created Date Observation Date Name Description Value Unit Range Abnormal Flag Note LastModifiedBy Organization Detail LastModifiedTime Result Notes None recorded. Medical Equipment None Reported. Allergies Allergen ID Allergen Name Allergen Category Reaction Reaction Severity Criticality Documentation Date Start Date Code Code System Note Provider Name and Address Organization Details Recorded Time 54857 oxycodone medicatio n Not available Not available Not available 03/01/2025 7804 RxNorm Not Available [facility] - production 5 09:02:29 Medications Name Sig Start Date Stop Date Status Note LastModified by Organization Details LastModified Time nicotine 14 mg/24 hr daily transdermal patch APPLY 1 PATCH EVERY DAY DIRECTED (SMOKING cessation) active Not Available Not Available N ot Available tizanidine 2 mg tablet TAKE 1 TABLET BY MOUTH EVERY 6 HOURS NEEDED FOR MUSCLE SPASMS active Not Available Not Available No t Available meloxicam 15 mg tablet TAKE 1 TABLET BY MOUTH EVERY DAY (PAIN AND inflammatio n) active Not Available Not Available No t Available Viagra 50 mg tablet TAKE 1 TABLET 1 HOUR BEFORE SEXUAL RELATIONS ONCE DAILY NEEDED. active Not Available Not Available N ot Available sulfamethoxa zole 800 mg-trimethop rim 160 mg tablet TAKE 1 TABLET BY MOUTH EVERY TWELVE HOURS FOR 7 DAYS (FOR INFECTION) active Not Available Not Available N ot Available tramadol 50 mg tablet TAKE 1 TABLET BY MOUTH EVERY 6 HOURS NEEDED FOR PAIN active Not Available Not Available No t Available tamsulosin 0.4 mg capsule TAKE 1 CAPSULE BY MOUTH DAILY 30 MINUTES AFTER THE SAME MEAL EVERY DAY (BPH) active Not Available Not Available No t Available nicotine (polacrilex) 4 mg gum CHEW 1 PIECE OF GUM EVERY 2 HOURS NEEDED DIRECTED active Not Available Not Available No t Available cephalexin 500 mg capsule TAKE 1 CAPSULE BY MOUTH TWICE DAILY FOR 7 DAYS (ANTIBIOTIC THERAPY) active Not Available Not Available No t Available Viagra 25 mg tablet TAKE 1 TABLET 1 HOUR BEFORE SEXUAL RELATIONS ONCE DAILY NEEDED. active Not Available Not Available N ot Available gabapentin 300 mg capsule TAKE 1 CAPSULE BY MOUTH THREE TIMES DAILY IN THE MORNING, AT NOON, AND AT BEDTIME NEEDED FOR PAIN active Not Available Not Available No t Available mupirocin 2 % topical ointment APPLY TO THE AFFECTED AREA(S) THREE TIMES DAILY FOR 7 DAYS (ANTIBIOTIC A UNGUENTO) active Not Available Not Available Not Available ibuprofen 600 mg tablet TAKE 1 TABLET BY MOUTH THREE TIMES A DAY NEEDED FOR MODERATE PAIN active Not Available Not Available No t Available escitalopram 10 mg tablet TAKE 1 TABLET BY MOUTH EVERY DAY FOR ANXIETY AND DEPRESSION active Not Available Not Available N ot Available bupropion HCl XL 150 mg 24 hr tablet, extended release TAKE 1 TABLET BY MOUTH ONCE DAILY FOR ANXIETY AND DEPRESSION active Not Available Not Available N ot Available Vitals Date Recorded Body height Heart rate Oxygen saturation Body temperature Body weight Respiratory rate Systolic And Diastolic Provider Name and Address Organization Details Last Updated DateTime 5 167.64 cm 64 /min 100 % 98 [degF] 46929.8 g 14 /min 133/76 mm[Hg] Not Available [facility] - production 5 09:44:45 Social History None recorded. Functional Status None recorded. Mental Status None recorded. Family History Nothing Reported. Medical History No medical history recorded. Past Encounters Encounter ID Performer Location Encounter Start Date Encounter Closed Date Diagnosis/Indication Diagnosis SNOMED-CT Code Diagnosis ICD10 Code Diagnosis IMO Codes Diagnosis Note [id number] Caleb Hammonds MD Main - [address] [phone] 03/01/2025 09:37:53 03/01/2025 12:36:06 Dizziness [id number] R42 Health Concerns Section Related Observation LastModified by Organization Detai ls LastModified Time None Recorded Concern Status LastModified by Organization Details LastModified Time None Recorded Advance Directives Directive None Recorded Payers Insurance Date Sequence Insurance Name Policy Number Policy Harvey Covered Member ID Harvey Member ID Guarantor Name 03/24/2025 1 [facility] - DOS ON OR AFTER 2023 - DUAL ELIGIBLE - ALF OPTIONS AND ONE CARE (MEDICARE REPLACEMENT/ADV ANTAGE - HMO) Celestino Sweeney [id number] Celestino Sweeney Notes Date Note Type Note Provider Name and Address Organization Details Recorded Time 03/01/2025 text/html HPI: HX Transient Hypertension , cervical radiculopathy, concussion 09/2024. .................... .................... .................... .................... .................... .................... .................... . [facility] Nurse Triage Notes (Hodan Orozco): Chief Complaints: Dizziness, Confusion PMH: Chronic Pain PMH Reviewed at 03/01/2025 Allergies Reviewed at 03/01/2025 Comments: 03/01 9a- call to patient to obtain more information, no answer, voice mail left with return call back number- AC Per provider- Home evaluation of complaints of dizziness. No neuro deficit identified during call. Alert and verbal with accurate information. End User Consultant Organization Information for Jordi Chaparro [employer] Legal Name: [facility] Address: [address] [place] [address], Typing Checker: Iglesia Tovar MD [facility] No.: [id number] End User Consultant POC Test Results from Jordi Chaparro Blood Glucose Measurement (09:49:36) Blood Glucose: 164 mg/dL .................... .................... .................... .................... .................... .................... .................... . End User Consultant Note From Jordi Chaparro: Patient alert and oriented complains of dizziness after a fall times six months ago. Patient reports he s seen specialist and received inconclusive results. Patient requests additional testing. Patient reports dizziness is consistently present, intensity fluctuates. Patient reports dizziness currently high. Patient denies pain, nausea, vomiting, diarrhea, room spinning sensation, increase on ambulation change in sleep, appetite, elimination, or intake. Patient reports he s been prescribed meclizine, states it does not help. Patient pink warm dry secondary exam unremarkable. Patient ambulates slowly, evenly. Patient appears uncomfortable. Positive full sentences negative increase work of breathing abdomen soft nontender extremities unremarkable. Good skin TURGOR. [facility] advises he will send a note to provider. Patient reports he has appointment with PCP in two days. Patient reports he feels safe at home. Red flags patient education discussed. Patient demonstrates understanding of care and plan. [facility] Lab Orders: glucose, fingerstick, blood: Performed .................... .................... .................... .................... .................... .................... .................... . [facility] Consulted: Caleb Hammonds .................... .................... .................... .................... .................... .................... .................... . Disposition: Fulfilled Caleb Hammonds MD [address] [facility],[address], [place], [address], [employer] 03/01/2025 11:12:19
--- OUTSIDE RECORDS SUMMARY | 2025-11-20 23:37 | XMS_ITS | Encounter Summary ---
Author Organization [employer] Address [address] [place] [address] Care Team Providers Care Live In Housekeeper Nanny Name Role Phone Alexandra Ralph MD Primary Care Provide r Encounter Details Date Type Department Care Team ([facility] Contact Info) Description 11/09/2024 Orders Only [facility] MEDICINE [address] [place] [address] Alexandra Ralph MD [address] [place] [address] Social History Tobacco Use Types Packs/Day Years [...] documented as of this encounter Care Teams Live In Housekeeper Nanny Relationship Specialty Start Date End Date Alexandra Ralph MD [address] [place] [address] PCP - General Internal Medicine 04/16/23 documented as of this encounter
--- OUTSIDE RECORDS SUMMARY | 2025-11-20 23:37 | XMS_ITS | Encounter Summary ---
Author Organization [employer] Address [address] [facility] [address] [place] [address] Care Team Providers Care Electric Meter Tester Name Role Phone Alexandra Ralph MD Primary Care Provide r Reason for Referral * Imaging (Routine) - Closed Specialty Diagnoses / Procedures Referred By Contac t Referred To Contact Diagnoses Severe left inguinal pain Procedures CT Pelvis w/o Contrast Claire Hayden MD [address] [place] [address] Phone: tel: fax: [address] [address] Phone: tel: fax: Referral ID Status Reason Start Date Expiration Date Visits Re quested Visits Authorized [id number] Closed 05/06/2023 05/05/2024 1 1 Encounter Details Date Type Department Care Team (Late st Contact Info) Description 05/06/2023 Orders Only [facility] [address] [place], [place] [phone] Claire Hayden MD [address] [place], [place] [phone] Severe left inguinal pain (Primary Dx) Social [...] as of this encounter Plan of Treatment Scheduled Orders Name Type Priority Associated Diagnoses [...] documented as of this encounter Care Teams Electric Meter Tester Relationship Specialty Start Date End Date Alexandra Ralph MD [address] [place] [address] PCP - General Internal Medicine 04/16/23 documented as of this encounter
== END 2025-11-20 23:41 | disposition left against medical advice (07) ==
LOC: HO.ED 23:34
PROVIDERS: Emergency Provider Emergency Medicine; PCP Internal Medicine
DX: S19.9XXA Unspecified injury of neck, initial encounter (principal); M54.2 Cervicalgia; R51.9 Headache, unspecified; V49.40XA Driver injured in collision with unspecified motor vehicles in traffic accident, initial encounter; Y93.9 Activity, unspecified; Y92.410 Unspecified street and highway as the place of occurrence of the external cause; Y99.8 Other external cause status; Z79.899 Other long term (current) drug therapy; F17.210 Nicotine dependence, cigarettes, uncomplicated
CPT/HCPCS: 70450; 72125; 99281; 99284

== ENCOUNTER → 2025-11-20 19:36 | Outpatient (BNV) | payer OTHER, SELFPAY | PROVIDERS: PCP Internal Medicine; Visit Provider Radiology Neuroradiology | DX: M54.2 Cervicalgia (principal); R51.9 Headache, unspecified; V89.2XXA Person injured in unspecified motor-vehicle accident, traffic, initial encounter | CPT/HCPCS: 70450; 72125 ==